=== PATIENT | male | born 1975 | race Caucasian/White ===

== ENCOUNTER 2020-12-02 20:28 | Emergency (ER) | payer OTHER, SELFPAY ==
[2020-12-02 20:47] VITALS: BP 157/90; PULSE 92; RESP 17; TEMP 36.8; O2SAT 100; BMI 45.6
--- NOTE | 2020-12-02 20:52 | HMH.EDGENADL ---
ED Disposition Clinical Impression: Chest pain Qualifiers: Chest pain type: unspecified Qualified Code(s): R07.9 - Chest pain, unspecified Disposition: Home, Self-Care Condition on Discharge: Fair Instructions: DI for Acute Pain -- Adult Additional Instructions: Return if recurrent chest pain. Referrals: PCP,No [Primary Care Provider] - - Critical Care Critical Care Time: No Attestation: On , the high probability of a clinically significant, sudden or life threatening deterioration of the following system(s) required my full and direct attention, intervention and personal management. The time I documented below is in addition to time spent performing reported procedures but includes the following listed in this critical care notation. Medical Decision Making - Medical Records Medical records reviewed: Yes: I reviewed the patient's medical records. - Henri Inquiry Pt receiving controlled substance: No Vital Signs: 12/02/20 20:47 Temperature 98.3 F Temperature Source Oral Pulse Rate [Right Brachial] 92 H Respiratory Rate 17 Blood Pressure [Right Arm] 157/90 H Blood Pressure Mean [Right Arm] 112 Blood Pressure Source [Right Arm] Automatic Cuff Blood Pressure Position [Right Arm] Sitting 02 Sat by Pulse Oximetry 100 Oxygen Delivery Method Room Air - Lab Data Lab Results 12/02/20 20:53: WBC 9.4, RBC 5.34, Hgb 14.0 L, Hct 43.0, MCV 80.6, MCH 26.1 L, MCHC 32.5, RDW 14.5, Plt Count 298, MPV 8.4, Neut % (Auto) 69.7, Lymph % (Auto) 21.1, [place] % (Auto) 7.5, Eos % (Auto) 1.1, Baso % (Auto) 0.6, Neut # (Auto) 6.5, Lymph # (Auto) 2.0, [place] # (Auto) 0.7, Eos # (Auto) 0.1, Baso # (Auto) 0.1 12/02/20 20:53: Sodium 140, Potassium 3.6, Chloride 100, Carbon Dioxide 31 H, Anion Gap 12.6, BUN 18, Creatinine 1.00, Estimated Creat Clear 90, Estimated GFR 81, Est GFR ( Amer) 98, Glucose 137 H, Calcium 10.0, Total Bilirubin 0.7, AST 26, ALT 26, Alkaline Phosphatase 67, Troponin I < 0.01, Total Protein 8.5 H, Albumin 4.8, Globulin 3.7 H, Albumin/Globulin Ratio 1.3, Lipase 94 Result diagrams: 12/02/20 20:53 12/02/20 20:53 Orders (Tests/Meds): ORDERS Category Date Time Status XR chest portable Stat Exams 12/02/20 21:13 Taken Troponin I Q3H Lab 12/03/20 00:15 Ordered Troponin I Q3H Lab 12/03/20 03:15 Ordered Medical Decision Narrative: Hemodynamically stable on arrival. EKG demonstrates no acute ischemia process. There is a right bundle branch block. Cardiac enzyme test will be obtained as atypical ACS on the differential. Patient's pain is rather atypical. For set of enzymes negative. Patient's pain has been constant for 12 hours with low suspicion. Patient will follow up in the outpatient setting in regards to ACS. Other test obtained including blood counts and electrolytes all within normal limits. X-ray demonstrates no acute cardiopulmonary abnormality. At this time, I do believe patient to be swab for Covid discharged in stable condition with instructions to isolate as best he can until results are available. He does need to follow-up with PCP as he does need to establish primary care. Patient agrees. He states he does have PCPs he can call to try to establish primary care. He will return if any recurrent chest pain, shortness of breath, nausea/vomiting, other new concerning symptoms. Assessment: Chest discomfort Obesity Disposition: Home with follow-up General Adult HPI - General Stated complaint: shortness of breath periodic numbness Time Seen by Provider: 12/02/20 21:39 - History of Present Illness HPI narrative: 45-year-old male history of obesity presenting with chest pain for the past 5 weeks. Patient states he had intermittent sharp pains that are nonexertional, nonpositional, nonpleuritic. Today he has had pain constantly for the past 12 hours. No radiation of pain. No nausea/vomiting. He states he does not have a primary care doctor and would like to establish care.
--- NOTE | 2020-12-02 21:13 | XR_ITS ---
PROCEDURE: XR CHEST PORTABLE CLINICAL HISTORY: chest pain COMPARISON: No exams were available for comparison FINDINGS: Cardiomegaly without CHF The lungs are clear without infiltrates, suspicious nodules, or pleural effusions. No acute bony abnormalities. IMPRESSION: Cardiomegaly otherwise negative Dictated by: Raman Gil MD 12/03/2020 05:44 Raman Gil MD in [place] 12/03/2020 05:44
[2020-12-02 21:19] LABS: Basophils # 0.1 K/mm3 (0-0.2); Basophils % 0.6 % (0.1-2.0); Eosinophils # 0.1 K/mm3 (0.0-0.4); Eosinophils % 1.1 % (0.1-12.0); Lymphocytes % 21.1 % (10-50); Mean Corpuscular HGB Conc 32.5 g/dL (31.8-35.4); Mean Corpuscular Hemoglobin 26.1 pg (27.0-31.2); Mean Corpuscular Volume 80.6 fl (80-94); Mean Platelet Volume 8.4 fl (7.4-10.4); Monocytes # 0.7 K/mm3 (0.1-1.0); Monocytes % 7.5 % (1.7-9.3); Neutrophils # 6.5 K/mm3 (1.8-7.8); Neutrophils % 69.7 % (37.0-80.0); Platelet Count 298 K/mm3 (142-424); Red Blood Count 5.34 M/mm3 (4.60-6.20); Red Cell Distribution Width 14.5 % (11.5-17.5); White Blood Count 9.4 K/mm3 (4.8-10.8)
[2020-12-02 21:21] LABS: Chloride 100 mmol/L (98-107); Potassium 3.6 mmoL/L (3.5-5.1); Sodium 140 mmol/L (136-145)
[2020-12-02 21:24] LABS: Alanine Aminotransferase 26 U/L (12-78); Albumin Level 4.8 g/dl (3.5-5.0); Albumin/Globulin Ratio 1.3 (1.1-1.8); Alkaline Phosphatase 67 U/L (38-126); Anion Gap 12.6 mEq/L (5-15); Aspartate Amino Transferase 26 U/L (17-59); Bilirubin,Total 0.7 mg/dl (0.2-1.3); Blood Urea Nitrogen 18 mg/dl (9-20); Carbon Dioxide 31 mmol/L (22.0-30.0); Creatinine Clearance Estimated 90 mL/min (50-200); Estimated Glomerular Filt Rate 81 ml/min (>60); GFR (African American) 98 ML/MIN (>60); Globulin 3.7 g/dL (1.3-3.2); Glucose 137 mg/dl (74-100); Lipase 94 U/L (23-300); Total Protein,Serum 8.5 g/dl (6.3-8.2)
[2020-12-02 21:36] LABS: Troponin I < 0.01 ng/ml (0.00-0.034)
--- NOTE | 2020-12-02 22:38 | ECG_ITS ---
APPROVED REPORT Exam: Resting ECG HR:65 bpm ECG Measurements Heart Rate 65 AXES MS 148 P 53 QRSd 110 QRS -20 QT 388 T 24 QTc 403 Conclusion Normal sinus rhythm with sinus arrhythmia Incomplete right bundle branch block Minimal voltage criteria for LVH, may be normal variant Borderline ECG Electronically signed by : Boni De La O, 12/03/2020 18:46:10
[2020-12-02 22:45] VITALS: BP 123/74; PULSE 73; RESP 17; TEMP 36.8; O2SAT 98
== END 2020-12-02 22:46 | disposition home or self-care (01) ==
PROVIDERS: Emergency Provider Emergency Medicine
DX: Z20.822 Contact with and (suspected) exposure to COVID-19 (principal); R07.9 Chest pain, unspecified; R51.9 Headache, unspecified; E66.01 Morbid (severe) obesity due to excess calories; Z68.42 Body mass index [BMI] 45.0-49.9, adult
CPT/HCPCS: 71045; 80053; 83690; 84484; 85025; 93005; 99282; U0003

== ENCOUNTER → 2021-01-31 14:03 | Outpatient (CLI) | payer OTHER, SELFPAY ==
--- NOTE | 2021-01-31 14:07 | XR_ITS ---
PROCEDURE: XR SHOULDER LT MIN 2V CLINICAL INDICATION: left shoulder pain COMPARISON: No exams were available for comparison FINDINGS: No fracture or dislocation. No lytic or blastic change. There is normal mineralization. No periarticular calcifications. The joint spaces are well-preserved. No significant degenerative/arthritic changes. No erosive changes evident. Other findings:No significant soft tissue abnormality. Visualized left hemithorax is unremarkable. IMPRESSION: No acute findings. Dictated by: Sarah Carrillo 01/31/2021 16:16 Sarah Carrillo in [place] 01/31/2021 16:16
--- NOTE | 2021-01-31 14:07 | XR_ITS ---
PROCEDURE: XR FOOT LT MIN 3V CLINICAL INDICATION: left foot pain COMPARISON: No exams were available for comparison FINDINGS: No fracture or dislocation. No lytic or blastic change. There is normal mineralization. Calcaneal spur is noted. Achilles tendon enthesopathy. The joint spaces are well-preserved. No significant degenerative/arthritic changes. No erosive changes evident. Other findings:None. IMPRESSION: No acute findings. Dictated by: Sarah Carrillo 01/31/2021 16:17 Sarah Carrillo in [place] 01/31/2021 16:17
--- NOTE | 2021-01-31 14:07 | XR_ITS ---
PROCEDURE: XR STERNUM MIN 2V CLINICAL INDICATION: knot on sternum COMPARISON: No exams were available for comparison FINDINGS: The visualized sternum is unremarkable. Bone density is within normal limits. No focal lytic or sclerotic lesions within the limitations of the study. The manubrium sternum appears unremarkable. No significant soft tissue abnormality. IMPRESSION: No acute abnormality. If clinically mass is suspected, CT of the chest without and with contrast should be considered for further evaluation. Dictated by: Sarah Carrillo 01/31/2021 16:19 Sarah Carrillo in [place] 01/31/2021 16:19
[2021-01-31 15:18] LABS: Basophils # 0.1 K/mm3 (0-0.2); Basophils % 0.6 % (0.1-2.0); Chloride 104 mmol/L (98-107); Eosinophils # 0.1 K/mm3 (0.0-0.4); Eosinophils % 0.5 % (0.1-12.0); Hematocrit 43.5 % (42.0-52.0); Lymphocytes # 1.6 K/mm3 (0.7-4.5); Lymphocytes % 17.4 % (10-50); Mean Corpuscular HGB Conc 32.2 g/dL (31.8-35.4); Mean Corpuscular Hemoglobin 26.2 pg (27.0-31.2); Mean Corpuscular Volume 81.4 fl (80-94); Mean Platelet Volume 8.3 fl (7.4-10.4); Monocytes # 0.5 K/mm3 (0.1-1.0); Monocytes % 5.6 % (1.7-9.3); Neutrophils # 6.7 K/mm3 (1.8-7.8); Neutrophils % 75.8 % (37.0-80.0); Platelet Count 292 K/mm3 (142-424); Potassium 4.7 mmoL/L (3.5-5.1); Red Blood Count 5.34 M/mm3 (4.60-6.20); Red Cell Distribution Width 14.2 % (11.5-17.5); Sodium 141 mmol/L (136-145); White Blood Count 8.9 K/mm3 (4.8-10.8)
[2021-01-31 15:20] LABS: Blood Urea Nitrogen 22 mg/dl (9-20); Estimated Glomerular Filt Rate 81 ml/min (>60); GFR (African American) 98 ML/MIN (>60)
[2021-01-31 15:21] LABS: Alanine Aminotransferase 23 U/L (12-78); Albumin Level 5.1 g/dl (3.5-5.0); Albumin/Globulin Ratio 1.6 (1.1-1.8); Alkaline Phosphatase 78 U/L (38-126); Anion Gap 13.7 mEq/L (5-15); Aspartate Amino Transferase 26 U/L (17-59); Bilirubin,Total 0.6 mg/dl (0.2-1.3); Calcium 10.2 mg/dl (8.4-10.2); Carbon Dioxide 28 mmol/L (22.0-30.0); Cholesterol 253 mg/dl (140-200); Globulin 3.1 g/dL (1.3-3.2); Glucose 84 mg/dl (74-100); Total Protein,Serum 8.2 g/dl (6.3-8.2); Triglycerides 255 mg/dl (30-150); VLDL Cholesterol 51 mg/dL (0-40)
[2021-01-31 15:22] LABS: Chol/HDL Ratio 5.3 (1-3.5); HDL Cholesterol 48 mg/dl (40-60)
[2021-01-31 15:33] LABS: Direct LDL Cholesterol 162.91 mg/dL (100-129)
[2021-01-31 15:37] LABS: Free T4 (Free Thyroxine) 1.42 ng/dl (0.78-2.19)
[2021-01-31 15:38] LABS: 25-OH Vitamin D, Total 19.7 ng/mL (30-100); Erythrocyte Sedimentation Rate 13 mm/hr (0-15)
== END ==
PROVIDERS: PCP Physician Assistant; Visit Provider Physician Assistant
DX: R07.89 Other chest pain (principal); M79.672 Pain in left foot; M25.512 Pain in left shoulder; M25.50 Pain in unspecified joint; Z00.00 Encounter for general adult medical examination without abnormal findings
CPT/HCPCS: 71120; 73030; 73630; 80053; 80061; 82306; 84439; 84443; 85025; 85651

== ENCOUNTER → 2021-03-01 17:30 | Outpatient (CLI) | payer OTHER, SELFPAY | PROVIDERS: PCP Physician Assistant; Visit Provider Physician Assistant | DX: G47.33 Obstructive sleep apnea (adult) (pediatric) (principal) | CPT/HCPCS: 95806 ==

== ENCOUNTER → 2021-03-02 08:07 | Outpatient (CLI) | payer OTHER, SELFPAY ==
--- NOTE | 2021-03-02 08:09 | CA_ITS ---
APPROVED REPORT EXAM: Comprehensive 2D, Doppler, and color-flow Echocardiogram Engraver Block: Angelina Castrejon, RCS, RVS Ht: 5 ft 8 in Wt: 260lbs BSA: 2.28 BP: 136/81 mmHg Indications: CP, recent Hx-pleurisy, ABN EKG, HLD 2D Dimensions Aortic Root 3.31 cm LA Volume 59.20 mL Left Atrium 4.07 cm LA Volume Index 25.90 mL/m2 (M/F) 16-34 LVOT 2.12 cm (M/F) 1.5-2.5 M-Mode Dimensions RVDd 2.74 cm (0.9-2.6) LA Diam 4.16 cm (1.9-4.0) LVDd 5.11 cm (3.5-5.7) Ao Diam 3.55 cm (2.0-3.7) LVDs 3.42 cm (3.5-5.7) IVSd 1.13 cm (0.6-1.1) PWd 1.09 cm (0.6-1.1) EF (Teich) 61.30% EPSs 0.56 cm FS 33.10% EDV (Teich) 124.40 mL TAPSE 1.84 (<1.7) ESV (Teich) 48.10 mL LV Diastology E Decel Time 197.00 (160-240 msec) E/A Ratio 1.40 MED E' 10.80 (< 7 cm/sec) MED A' 12.90 cm/s E'/MED E' Ratio 8.27 (>14) LAT E' 12.60 (<10 cm/sec) LAT A' 9.80 cm/s E/LAT E' Ratio 7.09 (>14) Aortic Valve LVOT Max 81.00 (70-110 cm/s) LVOT VTI 18.72 cm AO Peak GR. 5.30 mmHg Mitral Valve MV A Velocity 64.00 (40-130 cm/s) E/A Ratio 1.40 MV Decel. Time 197.00 (160-240 ms) Pulmonary Valve PV Peak Velocity 73.00 (50-150 cm/s) Left Ventricle Left atrium is normal size, left ventricle is normal size, there is no concentric left ventricular hypertrophy, visually estimated ejection fraction 55% with no regional wall motion abnormality, diastolic parameters are within normal range. Right Ventricle Right atrium is normal size, right ventricle qualitatively mildly enlarged with normal contractility. Aortic Valve Aortic valve is grossly normal, there is no aortic stenosis or aortic insufficiency. Mitral Valve Mitral valve is structurally normal, there is trace mitral regurgitation. Tricuspid Valve Tricuspid valve is grossly normal, there is trace tricuspid regurgitation. Pulmonic Valve Pulmonic valve is poorly visualized. Great Vessels Aortic root is normal size. Pericardium No significant pericardial effusion noted. Conclusion 1. Normal left ventricular size, preserved left ventricular systolic function, visually estimated ejection fraction 55% with no regional wall motion abnormality, diastolic parameters are within normal range. 2. Mildly enlarged right ventricle with normal contractility. 3. Trace mitral and tricuspid regurgitation. 4. No significant pericardial effusion noted. Electronically signed by : Jakob Daniel, 03/03/2021 14:49:53
--- NOTE | 2021-03-02 11:08 | XR_ITS ---
PROCEDURE: XR FOOT WT BEARING LT 3V CLINICAL INDICATION: pain Pain and swelling COMPARISON: CR XR FOOT LT MIN 3V from 01/31/2021 FINDINGS: No fracture or dislocation. No lytic or blastic change. There is normal mineralization. There are osteoarthritic changes at the talonavicular and navicular cuneiform joint with mild pes planus. Small spur is present at the distal talus anteriorly. Overall not significantly changed. There is a small calcaneal spur as before Other findings:None. IMPRESSION: Mild osteoarthritic changes with pes planus Dictated by: Raman Gil MD 03/02/2021 11:52 Raman Gil MD in [place] 03/02/2021 11:52
== END ==
PROVIDERS: PCP Physician Assistant; Visit Provider Nurse Practitioner Family
DX: R07.9 Chest pain, unspecified (principal); R94.31 Abnormal electrocardiogram [ECG] [EKG]; F14.11 Cocaine abuse, in remission; R00.0 Tachycardia, unspecified; E78.5 Hyperlipidemia, unspecified; K21.9 Gastro-esophageal reflux disease without esophagitis; Z87.891 Personal history of nicotine dependence; M79.672 Pain in left foot
CPT/HCPCS: 73630; 93306

== ENCOUNTER → 2021-03-02 08:37 | Outpatient (CLI) | payer OTHER, SELFPAY ==
--- NOTE | 2021-03-02 08:38 | NM_ITS ---
APPROVED REPORT Exam: Nuclear Stress Test Indication: chest pain Patient Location: Outpatient Stress Tech: Katheryn Eason SC Tech:NGOZI Pagan RT(R)(N) Ht: 5 ft 10 in Wt: 260 lbs HR: 75 bpm BP: 141/78 mmHg BSA: 2.33 m2 BMI: 37.3 History: chest pain78 Procedure: Patient received a 0.4 mg of intravenous Lexiscan, resting heart rate 78 bpm, resting blood pressure 141/78 mmHg, with Lexiscan maximum heart rate achived was 109 bpm which is Less than 85 % of the maximum predicted heart rate and blood pressure was 153/82 mmHg. With Lexiscan, patient denied any complaint of chest pain. Electrocardiogram Resting electrocardiogram showed sinus rhythm right ventricular conduction delay, with Lexiscan there is less than 1.[address] segment depression noted from the baseline EKG. The EKG portion of the Lexiscan is nondiagnostic. Cardiac Stress and Resting SPECT Images: Cardiac Stress and Resting SPECT images were obtained using technetium 99m Myoview 31.5 mCi stress and 9.40 mCi at rest. Gated SPECT for analysis of segmental wall motion and calculation of the ejection fraction also done. Prone images were also obtained. Cardiac stress and resting SPECT images show uniform myocardial activity without segmental perfusion abnormality, computer derived ejection fraction is 50% with no regional wall motion abnormality, right ventricle is normal size and contractility. Conclusion: 1. The EKG portion of the Lexiscan is nondiagnostic. 2. No scintigraphic evidence of reversible ischemia seen, computer derived ejection fraction is 50% with no regional wall motion abnormality, right ventricle is normal size and contractility. 3. Normal Lexiscan Myoview study. Electronically signed by : Jakob Daniel, 03/03/2021 14:20:11
--- NOTE | 2021-03-02 13:49 | CA_ITS ---
APPROVED REPORT Exam: Pharmacologic Technologist: Katheryn Eason, Ht: 5 ft 8 in Wt: 260 lbs BSA: 2.28 m2 HR: 78 bpm BP: 141/78 mmHg Medical History Medications: Toprol,,,,, MeLOXICAM,,,,, AtorvaASTATIN,,,,, Asapirin,,,,, Stress Test Details Test: LEXISCAN HR Resting HR: 82 bpm Max Heart Rate (APMHR): 175.971636 bpm Max HR Achieved: 109 bpm Target HR (85% APMHR): 148.995145 bpm % of APMHR: 62.29 Recovery HR: 91 bpm BP Resting BP: 141/78 mmHg Max BP: 153/82 mmHg Recovery BP: 135.0/83.0 mmHg ECG Resting ECG: NSR, RBBB, LAD Medications Administered Nitroglycerine ( mg at ) Clinical Exercise duration: 04:01 min Highest Stage Achieved: Exercise capacity: 1.0 METs Stress ECG Conclusion Symptoms: Mild SOA, mild stomach discomfort. No CP. Arrhythmias/Ectopy: Some variation in R wave amplitude. ST-T Changes: No significant changes. Conclusion: Unremarkable Lexiscan stress. Myoview images reported separately. Test Summary REST . . . . . . . Resting REST 05:01 . . 82 . 141/ 78 . . Stage 1 . . . . . . . Myoview Injected Stage 1 01:00 . . 105 . . . . Stage 2 01:00 . . 100 . 153/ 82 . . Stage 3 01:00 . . 94 . 145/ 73 . . Stage 4 01:00 . . 95 . 135/ 80 . . Stage 4 01:01 . . 95 . 135/ 80 . Stop exercise at 04:01 RECOVERY 01:00 . . 88 . . . . RECOVERY 02:00 . . 93 . 129/ 79 . . RECOVERY 03:00 . . 91 . 135/ 83 . . RECOVERY 03:19 . . 93 . 135/ 83 . . Electronically signed by : Jakob Daniel, 03/03/2021 14:17:02
== END ==
PROVIDERS: PCP Physician Assistant; Visit Provider Nurse Practitioner Family
DX: R07.9 Chest pain, unspecified (principal); R00.0 Tachycardia, unspecified; R94.31 Abnormal electrocardiogram [ECG] [EKG]; F14.11 Cocaine abuse, in remission; E78.5 Hyperlipidemia, unspecified; K21.9 Gastro-esophageal reflux disease without esophagitis; Z87.891 Personal history of nicotine dependence
CPT/HCPCS: 78452; 93017; A9502; J2785

== ENCOUNTER → 2021-03-07 11:22 | Outpatient (CLI) | payer OTHER, SELFPAY ==
[2021-03-08 12:43] LABS: Anti-Centromere B Antibodies <0.2 AI (0.0-0.9); Anti-Jo-1 <0.2 AI (0.0-0.9); Anti-Smith Antibody <0.2 AI (0.0-0.9); Antichromatin Antibodies <0.2 AI (0.0-0.9); Antiscleroderma-70 Antibodies <0.2 AI (0.0-0.9); RNP Antibodies <0.2 AI (0.0-0.9); Sjogren's Anti-SS-A <0.2 AI (0.0-0.9); Sjogren's Anti-SS-B <0.2 AI (0.0-0.9)
[2021-03-10 12:45] LABS: Anti-DNA (DS) Ab Qn 1 IU/mL (0-9); RA Latex Turbid. <10.0 IU/mL (0.0-13.9)
== END ==
PROVIDERS: Visit Provider Physician Assistant
DX: M25.50 Pain in unspecified joint (principal); M76.72 Peroneal tendinitis, left leg; M79.672 Pain in left foot; M79.671 Pain in right foot
CPT/HCPCS: 36415; 86225; 86235; 86431

== ENCOUNTER → 2021-03-14 10:26 | Outpatient (CLI) | payer OTHER, SELFPAY | PROVIDERS: PCP Physician Assistant; Visit Provider Nurse Practitioner Family | DX: I49.9 Cardiac arrhythmia, unspecified (principal) | CPT/HCPCS: 93270 ==

== ENCOUNTER → 2021-04-18 13:23 | Outpatient (CLI) | payer OTHER, SELFPAY ==
--- NOTE | 2021-04-18 13:23 | MR_ITS ---
PROCEDURE INFORMATION: Exam: MR Left Upper Extremity Joint Without Contrast; Shoulder Exam date and time: 04/18/2021 1:23 PM Age: 45 years old Clinical indication: Pain; Shoulder; Left; Additional info: Left shoulder pain. Left shoulder pain. Pain radiates into chest. No injury or trauma. No prior. TECHNIQUE: Imaging protocol: MR of the Left upper extremity without contrast. Exam focused on the shoulder. COMPARISON: CR XR SHOULDER LT MIN 2V 01/31/2021 2:15 PM FINDINGS: Bones and cartilage: Flattening of the posterior aspect of the humeral head with mild marrow edema, suggestive of post-traumatic change or Hill-Sachs lesion. Acromioclavicular arthropathy is identified, with effacement of the underlying tissue planes. No dislocation of the glenohumeral joint. Joint spaces: No significant glenohumeral joint effusion. Glenoid labrum: A tear is visualized of the superior aspect of the labrum. A tear is also noted of the posterior aspect of the labrum, with suggested mild periosteal sleeve avulsion or POLPSA. Blunting of the anterior aspect of the labrum is visualized. Supraspinatus tendon: Tendinopathy of the supraspinatus tendon. There is increased signal intensity of the undersurface of this tendon, consistent with partial tear. Infraspinatus tendon: Tendinosis of the infraspinatus tendon, with partial tear distally. Subscapularis tendon: No evidence of tear. Teres minor tendon: No evidence of tear. Tendon of biceps brachii: No evidence of tear. Glenohumeral ligaments: No evidence of tear of the inferior glenohumeral ligament. Muscles: No visualized acute abnormality. Soft tissues: No significant soft tissue swelling. IMPRESSION: 1. Tendinosis of the infraspinatus tendon, with partial tear distally. 2. Tendinopathy of the supraspinatus tendon. There is increased signal intensity of the undersurface of this tendon, consistent with partial tear. 3. A tear is visualized of the superior aspect of the labrum. A tear is also noted of the posterior aspect of the labrum, with suggested mild periosteal sleeve avulsion or POLPSA. 4. Flattening of the posterior aspect of the humeral head with mild marrow edema, suggestive of post-traumatic change or Hill-Sachs lesion. 5. Acromioclavicular arthropathy is identified, with effacement of the underlying tissue planes. 6. Additional findings described above.
== END ==
PROVIDERS: PCP Physician Assistant; Visit Provider Physician Assistant
DX: M25.512 Pain in left shoulder (principal)
CPT/HCPCS: 73221

== ENCOUNTER → 2021-05-02 10:17 | Outpatient (CLI) | payer OTHER, SELFPAY ==
--- NOTE | 2021-05-02 10:17 | MR_ITS ---
PROCEDURE INFORMATION: Exam: MR Left Lower Extremity Joint Without and With Contrast; Ankle Exam date and time: 05/02/2021 10:17 AM Age: 45 years old Clinical indication: Patient HX: Left lateral ankle pain, no swelling, no injury TECHNIQUE: Imaging protocol: MR of the Left lower extremity without and with contrast. Exam focused on the ankle. Contrast material: PROHANCE; Contrast volume: 24 ml; Contrast route: IV; COMPARISON: 1. CR XR FOOT WT BEARING LT 3V 03/02/2021 11:09 AM 2. CR XR FOOT LT MIN 3V 01/31/2021 2:15 PM FINDINGS: Bones and cartilage: Moderate bone marrow edema and enhancement is present on both sides of the calcaneocuboid joint. The appearance is most suggestive of osseous contusions; however, there is no provided history of trauma. In the absence of trauma, bone marrow edema can be present in the setting of osseous stress and degenerative change. There is no significant degenerative change evident involving the calcaneocuboid joint. The median eminence of the navicular bone is enlarged. This is consistent with a type III accessory navicular, which has been associated with impingement symptoms. There are small dorsal and plantar calcaneal enthesophytes. Mild osteoarthritis involves the talonavicular and navicular-intermediate cuneiform joints where there are small dorsal enthesophytes. An os trigonum accessory bone is present along the dorsal aspect of the talus. The ossicle has a normal appearance. There is no evidence of posterior impingement. The longitudinal arch of the foot is flattened. There is no acute fracture or dislocation. No aggressive bone lesions are present. Joint spaces: Mild effusions involve the ankle and subtalar joint. LIGAMENTS: Distal tibiofibular syndesmosis: Unremarkable. No tear. Anterior talofibular ligament: Unremarkable. No tear. Posterior talofibular ligament: Unremarkable. No tear. Calcaneofibular ligament: Unremarkable. No tear. Deltoid ligament complex: Unremarkable. No tear. TENDONS: Flexor tendons of foot: Mild tenosynovitis involves the flexor digitorum longus tendon. No tear. Fluid surrounding the flexor hallucis tendon has likely decompressed from the ankle joint. Tibialis posterior tendon: Mild tenosynovitis involves the tibialis posterior tendon. No tear. Peroneal tendons: Mild tenosynovitis involves the peroneal tendon sheath. No tear. Extensor tendons of foot: A mild amount of fluid is present in the extensor digitorum longus tendon sheath. Tibialis anterior tendon: Unremarkable. Achilles tendon: Unremarkable as visualized. Tarsal canal (Sinus tarsi): The sinus tarsi region is narrowed secondary to pes planus. Within the limits of this narrowing, there are preserved foci of normal fat and no evidence of ligament tear. Tarsal tunnel: Unremarkable. Muscles: Unremarkable. Soft tissues: A trace amount of fluid is present in the retrocalcaneal bursa. Mild edema involves the subcutaneous fat of the medial ankle. Plantar fascia: Mild thickening of the proximal plantar fascia central band has minimal surrounding soft tissue edema, suggesting chronic mild plantar fasciitis (fasciopathy), series 6/images 15-16. IMPRESSION: 1. Bone marrow edema and enhancement surrounding the calcaneocuboid joint. In the absence of trauma and absence of significant degenerative change, stress reaction would most likely produce this appearance. 2. Mild osteoarthritis involves the talonavicular and navicular-intermediate cuneiform joints where there are small dorsal enthesophytes. 3. Pes planus. 4. Mild tenosynovitis of the peroneal, tibialis posterior, and flexor digitorum longus, and extensor di
== END ==
PROVIDERS: PCP Physician Assistant; Visit Provider Podiatrist
DX: M79.672 Pain in left foot (principal)
CPT/HCPCS: 73723; A9576

== ENCOUNTER 2021-06-21 08:00 | Emergency (ER) | payer OTHER, SELFPAY ==
[2021-06-21 08:01] VITALS: BP 140/88; PULSE 82; RESP 18; TEMP 37.1; O2SAT 98; BMI 35.9
--- NOTE | 2021-06-21 08:12 | ECG_ITS ---
APPROVED REPORT Exam: Resting ECG HR:62 bpm ECG Measurements Heart Rate 62 AXES MS 148 P 41 QRSd 102 QRS -42 QT 386 T 36 QTc 391 Conclusion Normal sinus rhythm Left axis deviation Incomplete right bundle branch block Nonspecific T wave abnormality Abnormal ECG Electronically signed by : Boni De La O MD 06/22/2021 11:45:43
[2021-06-21 08:20] VITALS: BP 138/79; PULSE 74; RESP 20; O2SAT 96
--- NOTE | 2021-06-21 08:23 | HMH.EDGENADL ---
ED Disposition Clinical Impression: COVID-19 virus infection Disposition: Home, Self-Care Condition on Discharge: Good Instructions: DI for COVID-19 (Suspected or Confirmed ) Additional Instructions: Off work for 10 days, quarantine yourself. Rest, plenty of fluids, Tylenol or ibuprofen for pains or fever. Outpatient monoclonal antibody therapy has been ordered and you will receive a call from [facility] nursing staff to schedule the treatment. Return to the emergency department if short of breath, severe weakness, or intractable vomiting. Referrals: Nohelia Alex PA [Primary Care Provider] - Forms: Work/School Release - Critical Care Critical Care Time: No Attestation: On 06/21/21, the high probability of a clinically significant, sudden or life threatening deterioration of the following system(s) required my full and direct attention, intervention and personal management. The time I documented below is in addition to time spent performing reported procedures but includes the following listed in this critical care notation. Medical Decision Making - Medical Records Medical records reviewed: Yes: I reviewed the patient's medical records. MR Comment: Reviewed recent Myoview stress test, echocardiogram on 03/03/2021, both negative. Also recent cardiac event monitor that showed sinus rhythm with PVCs. - Henri Inquiry Pt receiving controlled substance: No Vital Signs: 06/21/21 08:01 06/21/21 08:20 Temperature 98.8 F Temperature Source Oral Pulse Rate 74 Pulse Rate [Left Radial] 82 Respiratory Rate 18 20 Blood Pressure 138/79 Blood Pressure [Right Arm] 140/88 Blood Pressure Mean [Right Arm] 105 Blood Pressure Source Automatic Cuff Blood Pressure Source [Right Arm] Automatic Cuff Blood Pressure Position Sitting Blood Pressure Position [Right Arm] Sitting 02 Sat by Pulse Oximetry 98 96 Oxygen Delivery Method Room Air Room Air - Lab Data Lab Results 06/21/21 08:11: WBC 7.6, RBC 5.65, Hgb 14.6, Hct 45.1, MCV 79.8 L, MCH 25.9 L, MCHC 32.5, RDW 14.1, Plt Count 209, MPV 8.0, Neut % (Auto) 79.8, Lymph % (Auto) 10.7, [place] % (Auto) 8.2, Eos % (Auto) 0.2, Baso % (Auto) 1.2, Neut # (Auto) 6.1, Lymph # (Auto) 0.8, [place] # (Auto) 0.6, Eos # (Auto) 0.0, Baso # (Auto) 0.1 06/21/21 08:11: Sodium 139, Potassium 4.1, Chloride 100, Carbon Dioxide 28, Anion Gap 15.1 H, BUN 19, Creatinine 1.20, Estimated Creat Clear 125, Estimated GFR 65, Est GFR ( Amer) 79, Glucose 168 H, Calcium 8.7, Troponin I < 0.01 06/21/21 08:40: SARS-CoV-2 (PCR) Detected A, Influenza A Untype (PCR) Not detected, Influenza Type B (PCR) Not detected Result diagrams: 06/21/21 08:11 06/21/21 08:11 Orders (Tests/Meds): ED MEDICATIONS Discontinued Medications Generic Name Dose Route Start Last Admin Trade Name Freq PRN Reason Stop Dose Admin Sodium Chloride 1,000 ml 06/21/21 08:33 06/21/21 08:44 Sodium Chloride 0.9% 1000ml Bag IV 06/21/21 08:34 1,000 ml BOLUS ONE Administration - Radiology Data #1 Image(s): Chest Image Reviewed: Yes I reviewed the patient's radiology image, Yes I have reviewed radiologist's interpretation PROCEDURE: XR CHEST 2V CLINICAL HISTORY: dizziness COMPARISON: CR XR CHEST PORTABLE from 12/02/2020 FINDINGS: The cardiomediastinal silhouette and pulmonary vascularity are within normal limits. The lungs are clear without infiltrates, suspicious nodules, or pleural effusions. Minimal thoracolumbar curvature convex right IMPRESSION: No acute findings. Dictated by: Raman Gil MD 06/21/2021 09:28 Raman Gil MD in [place] 06/21/2021 09:28 - ECG Data Tracing #1 EKG interpreted by Neo Glaser MD: Rhythm: sinus Rate: 62 [place]: Left Ectopy: none Conduction: Incomplete right bundle branch block ST Segment Changes: none T Wave Changes: Nonspecific Q Waves: none No evidence of acute ischemia or injury Medical Decision
[2021-06-21 08:30] LABS: Chloride 100 mmol/L (98-107); Potassium 4.1 mmoL/L (3.5-5.1); Sodium 139 mmol/L (136-145)
[2021-06-21 08:33] LABS: Anion Gap 15.1 mEq/L (5-15); Blood Urea Nitrogen 19 mg/dl (9-20); Calcium 8.7 mg/dl (8.4-10.2); Carbon Dioxide 28 mmol/L (22.0-30.0); Creatinine Clearance Estimated 125 mL/min (50-200); Estimated Glomerular Filt Rate 65 ml/min (>60); GFR (African American) 79 ML/MIN (>60); Glucose 168 mg/dl (74-100)
--- NOTE | 2021-06-21 08:33 | PC.NURSE ---
Pt to rad.
[2021-06-21 08:34] LABS: Basophils # 0.1 K/mm3 (0-0.2); Basophils % 1.2 % (0.1-2.0); Eosinophils % 0.2 % (0.1-12.0); Hematocrit 45.1 % (42.0-52.0); Hemoglobin 14.6 g/dL (14.1-18.0); Lymphocytes # 0.8 K/mm3 (0.7-4.5); Lymphocytes % 10.7 % (10-50); Mean Corpuscular HGB Conc 32.5 g/dL (31.8-35.4); Mean Corpuscular Hemoglobin 25.9 pg (27.0-31.2); Mean Corpuscular Volume 79.8 fl (80-94); Monocytes # 0.6 K/mm3 (0.1-1.0); Monocytes % 8.2 % (1.7-9.3); Neutrophils # 6.1 K/mm3 (1.8-7.8); Neutrophils % 79.8 % (37.0-80.0); Platelet Count 209 K/mm3 (142-424); Red Blood Count 5.65 M/mm3 (4.60-6.20); Red Cell Distribution Width 14.1 % (11.5-17.5); White Blood Count 7.6 K/mm3 (4.8-10.8)
[2021-06-21 08:46] LABS: Influenza A, PCR Not Detected (NotDetected); Influenza B, PCR Not Detected (NotDetected)
[2021-06-21 08:46] LABS: Troponin I < 0.01 ng/ml (0.00-0.034)
[2021-06-21 09:08] LABS: Coronavirus 19, PCR Detected (NotDetected)
[2021-06-21 09:50] VITALS: BP 130/84; PULSE 81; RESP 18; TEMP 37.1; O2SAT 98
--- NOTE | 2021-06-21 09:50 | PC.NURSE ---
OUT PATIENT COVID INFUSION ORDER FAXED TO PHARMACY
== END 2021-06-21 09:56 | disposition home or self-care (01) ==
PROVIDERS: Emergency Provider Emergency Medicine; PCP Physician Assistant
DX: U07.1 COVID-19 (principal); R42 Dizziness and giddiness; K21.9 Gastro-esophageal reflux disease without esophagitis; E78.5 Hyperlipidemia, unspecified; I10 Essential (primary) hypertension; Z87.891 Personal history of nicotine dependence
CPT/HCPCS: 71046; 80048; 84484; 85025; 93005; 96365; 99283; U0003

== ENCOUNTER → 2021-06-22 10:48 | Outpatient (CLI) | payer OTHER, SELFPAY ==
[2021-06-22] VITALS (8 sets, daily range): BP systolic 108–131; BP diastolic 70–82; PULSE 62–75; RESP 15–18; TEMP 36.4–36.9; O2SAT 94–99
== END ==
PROVIDERS: PCP Physician Assistant; Visit Provider Emergency Medicine
DX: U07.1 COVID-19 (principal)
CPT/HCPCS: 96365

== ENCOUNTER → 2021-07-18 14:42 | Outpatient (CLI) | payer OTHER, SELFPAY ==
--- NOTE | 2021-07-18 14:42 | CT_ITS ---
PROCEDURE: CT ANKLE LT WO CON CLINICAL HISTORY: chronic left ankle pain COMPARISON: MR MR ANKLE LT WO/W CON from 05/02/2021 TECHNIQUE: Axial images obtained with sagittal and coronal reformats. All CT scans at the facility use one or more dose reduction, viz: automated exposure control, ma/kV adjustment per patient size (including targeted exams where dose is matched to indication, i.e. head), or iterative reconstruction technique. FINDINGS: No fracture or dislocation. There are mild osteoarthritic changes of the talonavicular joint. Prominent trabeculation of the generalized bony structures suggesting osteopenia. There is a small amount of fluid posterior to the os trigonum suggesting mild bursitis. Type 3 os navicularis. The ankle mortise is preserved. IMPRESSION: Mild osteoarthritic changes. No acute fracture. Small amount of fluid posterior to the os trigonum suggesting bursitis. Dictated by: Raman Gil MD 07/19/2021 07:50 Raman Gil MD in [facility] 07/19/2021 07:50
== END ==
PROVIDERS: PCP Physician Assistant; Visit Provider Podiatrist
DX: M19.072 Primary osteoarthritis, left ankle and foot (principal); M25.372 Other instability, left ankle
CPT/HCPCS: 73700

== ENCOUNTER → 2021-10-24 07:32 | Outpatient (CLI) | payer OTHER, SELFPAY ==
--- NOTE | 2021-10-24 07:39 | MR_ITS ---
PROCEDURE: MR KNEE LT WO CON CLINICAL INDICATION: Left knee pain, instability, clicking COMPARISON: No exams were available for comparison TECHNIQUE: Routine multiplanar multi echo sequences are performed without gadolinium enhancement. FINDINGS: There has been prior ACL repair. No evidence cruciate ligament tear. The collateral ligaments have an unremarkable appearance. Patellar tendon and quadriceps tendon are unremarkable. There are osteoarthritic changes of the knee. There is thinning of the anterior aspect of the body of the medial meniscus as well as thinning of the anterior horn of the medial meniscus.. Abnormal contour noted involving the medial aspect of the anterior horn of the lateral meniscus suggesting a meniscal tear. There is also abnormal contour involving the lateral aspect of the posterior horn of the medial meniscus with some truncation of the meniscus anteriorly Osteoarthritic changes are present involving all 3 compartments. No large knee joint effusion. There is some mild thinning of the patellar cartilage. IMPRESSION: 1. Status post ACL repair with no evidence of cruciate tear. 2. Osteoarthritic changes 3. Abnormal contour/shape of the anterior aspect of the body of the medial meniscus and the posterior meniscus laterally as well as the medial aspect of the anterior horn of the lateral meniscus all suggesting meniscal tears. Dictated by: Raman Gil MD 10/25/2021 08:49 Raman Gil MD in [facility] 10/25/2021 08:49
== END ==
PROVIDERS: PCP Physician Assistant; Visit Provider Physician Assistant
DX: M25.562 Pain in left knee (principal)
CPT/HCPCS: 73721

== ENCOUNTER → 2021-10-24 09:21 | Outpatient (CLI) | payer OTHER, SELFPAY ==
--- NOTE | 2021-10-24 09:27 | XR_ITS ---
PROCEDURE: XR FOOT WT BEARING LT 3V CLINICAL INDICATION: PAIN COMPARISON: CR XR FOOT LT MIN 3V from 01/31/2021 CR XR FOOT WT BEARING LT 3V from 03/02/2021 FINDINGS: No fracture or dislocation. No lytic or blastic change. There is normal mineralization. There is pes planus. Osteoarthritic changes are present at the talonavicular and navicular cuneiform joint Other findings:None. IMPRESSION: Pes planus with osteoarthritis overall not significantly changed Dictated by: Raman Gil MD 10/24/2021 13:14 Raman Gil MD in [facility] 10/24/2021 13:14
--- NOTE | 2021-10-24 09:27 | XR_ITS ---
PROCEDURE: XR ANKLE WT BEARING LT MIN 3V CLINICAL INDICATION: PAIN COMPARISON: No exams were available for comparison FINDINGS: Bones: No fracture or dislocation. No lytic or blastic change. There is normal mineralization. Joints: The joint spaces are well-preserved. No significant degenerative/arthritic changes. No erosive changes evident. Other findings:None. IMPRESSION: No acute findings. Dictated by: Raman Gil MD 10/24/2021 13:14 Raman Gil MD in [facility] 10/24/2021 13:14
== END ==
PROVIDERS: PCP Physician Assistant; Visit Provider Podiatrist
DX: M25.572 Pain in left ankle and joints of left foot (principal)
CPT/HCPCS: 73610; 73630

== ENCOUNTER → 2021-10-31 09:22 | Outpatient (CLI) | payer OTHER, SELFPAY | PROVIDERS: PCP Physician Assistant; Visit Provider Nurse Practitioner | DX: U07.1 COVID-19 (principal) | CPT/HCPCS: C9803; U0003; U0005 ==

== ENCOUNTER → 2022-02-14 09:03 | Outpatient (CLI) | payer OTHER, SELFPAY ==
--- NOTE | 2022-02-14 09:08 | XR_ITS ---
FINAL REPORT CLINICAL HISTORY: CTS FINDINGS: 3 views of the right wrist were obtained. There is no acute fracture or dislocation. The joint spaces are intact. There is no soft tissue abnormality. IMPRESSION: No acute abnormality. Reviewed, Interpreted and Dictated by Matthew Craig MD Transcribed by Germán Jo Authenticated by Matthew Craig MD on 02/14/2022 11:38:36 AM [facility]
--- NOTE | 2022-02-14 09:08 | XR_ITS ---
FINAL REPORT CLINICAL HISTORY: CTS FINDINGS: 3 views of the left wrist were obtained. There is no acute fracture or dislocation. The joint spaces are intact. There is no soft tissue abnormality. IMPRESSION: No acute abnormality. Reviewed, Interpreted and Dictated by Matthew Craig MD Transcribed by Germán Jo Authenticated by Matthew Craig MD on 02/14/2022 11:38:[address] [facility]
== END ==
PROVIDERS: PCP Physician Assistant; Visit Provider Orthopaedic Surgery
DX: M25.532 Pain in left wrist (principal); M25.531 Pain in right wrist
CPT/HCPCS: 73110

== ENCOUNTER 2022-02-14 10:35 | Outpatient (RCR) | payer OTHER, SELFPAY | END 2022-02-14 11:28 | disposition home or self-care (01) | LOC: OT 10:35 | PROVIDERS: Visit Provider Orthopaedic Surgery | DX: G56.03 Carpal tunnel syndrome, bilateral upper limbs (principal) | CPT/HCPCS: 97763 ==

== ENCOUNTER → 2022-04-10 13:25 | Outpatient (CLI) | payer OTHER, SELFPAY ==
--- NOTE | 2022-04-10 13:25 | US_ITS ---
FINAL REPORT TECHNIQUE: Ultrasound images of the testicles were obtained bilaterally. Color Doppler images were obtained. CLINICAL HISTORY: .lt test pain FINDINGS: The right testicle measures 4.3 x 2.8 x 2.3 cm. The left testicle measures 4.0 x 3.1 x 2.4 cm. Arterial flow is identified bilaterally. No intratesticular masses are identified. There are small hydroceles bilaterally. There is a left varicocele and possible right varicocele identified. IMPRESSION: No evidence of testicular torsion or mass. Left varicocele and possible right varicocele. Reviewed, Interpreted and Dictated by Jose Dao III, MD Transcribed by Anna Marie Lopez Authenticated and [facility]
== END ==
PROVIDERS: PCP Physician Assistant; Visit Provider Physician Assistant
DX: N50.812 Left testicular pain (principal)
CPT/HCPCS: 76870

== ENCOUNTER → 2022-05-01 13:03 | Outpatient (CLI) | payer OTHER, SELFPAY ==
--- NOTE | 2022-05-01 13:10 | MR_ITS ---
FINAL REPORT CLINICAL HISTORY: FOOT AND ANKLE PAIN FINDINGS: Multiplanar MR imaging of the left ankle was performed without contrast. There are mild degenerative changes. The bony structures are intact without evidence of fracture, bone bruise or marrow edema. No osteochondral lesion is identified. The ligaments are intact without evidence of injury. The ATFL is not visualized consistent with tear. There is abnormal morphology of the calcaneofibular ligament, favor partial tear. There is posterior plantar fasciitis without tear. Small joint effusions are seen. The musculature is intact. There is no evidence of soft tissue mass or cyst. IMPRESSION: Tear of the ATFL and partial tear of the calcaneofibular ligament. Posterior plantar fasciitis without tear. Small joint effusions. Reviewed, Interpreted and Dictated by Jose Dao III, MD Transcribed by Regina Garcia Authenticated and . [facility]
--- NOTE | 2022-05-01 13:10 | MR_ITS ---
FINAL REPORT CLINICAL HISTORY: FOOT AND ANKLE PAIN. FINDINGS: Multiplanar MR imaging of the left foot was performed without contrast. There are mild degenerative changes. The bony structures are intact without evidence of fracture, bone bruise or marrow edema. The flexor and extensor tendons are intact. No ligamentous injury is identified. The musculature is intact. The plantar aponeurosis is intact. No soft tissue mass or cyst is identified. IMPRESSION: Mild degenerative changes without acute bony abnormality identified. Reviewed, Interpreted and Dictated by Jose Dao III, MD Transcribed by Regina Garcia Authenticated and [facility]
== END ==
PROVIDERS: PCP Physician Assistant; Visit Provider Podiatrist
DX: M19.072 Primary osteoarthritis, left ankle and foot (principal); M25.372 Other instability, left ankle; M72.2 Plantar fascial fibromatosis; M76.72 Peroneal tendinitis, left leg; Q68.8 Other specified congenital musculoskeletal deformities
CPT/HCPCS: 73718; 73721

== ENCOUNTER → 2022-10-30 14:43 | Outpatient (CLI) | payer OTHER, SELFPAY ==
--- NOTE | 2022-10-30 14:46 | MR_ITS ---
FINAL REPORT CLINICAL HISTORY: CERVICAL PAIN. PAIN WORSE ON LEFT SIDE. NO INJURY OR TRAUMA. FINDINGS: Multiplanar MR imaging of the cervical spine was performed without contrast. On the sagittal T2-weighted images, disc degeneration is seen at multiple levels. There is no evidence of fracture. The vertebral alignment is normal. The cervical spinal cord has an unremarkable appearance without evidence of mass, edema or syrinx. The cervicomedullary junction is normal. C2-3: A disc bulge is present. There is mild left neural foraminal narrowing. C3-4: A disc bulge is present. There is mild left neural foraminal narrowing. C4-5: A disc bulge is present with small uncovertebral osteophytes. There is mild left neural foraminal narrowing. C5-6: A disc bulge is present. There is a left paracentral disc protrusion which indents the thecal sac. There is possible left C6 nerve root impingement. Mild central canal stenosis is seen with an AP diameter of the thecal sac of 8 mm. There is moderate bilateral neural foraminal narrowing. C6-7: A disc bulge is present with small uncovertebral osteophytes. A left foraminal disc protrusion is seen. There is mild right and moderate left neural foraminal narrowing. There is left C7 nerve root impingement. Mild central canal stenosis is seen with an AP diameter of the thecal sac of 9 mm. C7-T1: A disc bulge is present. There is a small central disc protrusion which indents the thecal sac. There is mild left neural foraminal narrowing. IMPRESSION: Multilevel degenerative disc disease and spondylosis as described. Mild central canal stenosis at C5-6 and C6-7. Left paracentral C5-6 disc protrusion with possible left C6 nerve root impingement. Left foraminal C6-7 disc protrusion with left C7 nerve root impingement. Authenticated and [facility]
== END ==
PROVIDERS: PCP Physician Assistant; Visit Provider Orthopaedic Surgery
DX: M54.2 Cervicalgia (principal)
CPT/HCPCS: 72141; 76376

== ENCOUNTER → 2023-03-06 12:06 | Outpatient (CLI) | payer OTHER, SELFPAY ==
--- NOTE | 2023-03-06 12:17 | XR_ITS ---
FINAL REPORT CLINICAL HISTORY: pre-op testing, pain COMPARISON: October 2021 FINDINGS: LEFT ANKLE: Three weight-bearing views of the left ankle were obtained. There is no acute fracture or dislocation. The joint spaces and mortise are intact. There is a small plantar spur. There is no soft tissue abnormality. IMPRESSION: No acute process. Reviewed, Interpreted and Dictated by Matthew Craig MD Transcribed by Germán Jo Authenticated and [facility]
--- NOTE | 2023-03-06 12:17 | XR_ITS ---
FINAL REPORT CLINICAL HISTORY: pre-op testing, cough, nonsmoker. scheduled surgery for his foot COMPARISON: October 2021 FINDINGS: 3 weight-bearing views of the left foot were obtained. There is no acute fracture or dislocation. There is osteophyte formation superior to the talonavicular joint. There is a small plantar spur. The soft tissues are unremarkable. IMPRESSION: No acute process. Reviewed, Interpreted and Dictated by Matthew Craig MD Transcribed by Germán Jo Authenticated and [facility]
--- NOTE | 2023-03-06 12:17 | XR_ITS ---
FINAL REPORT CLINICAL HISTORY: pre-op testing FINDINGS: LEFT CALCANEUS 2 views were obtained. There is no acute fracture. There is osteophyte formation dorsal to the talonavicular joint. There is a small plantar spur. There is no soft tissue abnormality. IMPRESSION: No acute process. Reviewed, Interpreted and Dictated by Matthew Craig MD Transcribed by Germán Jo Authenticated and [facility]
--- NOTE | 2023-03-06 12:17 | XR_ITS ---
FINAL REPORT TECHNIQUE: Chest PA & Lateral CLINICAL HISTORY: pre-op testing, cough, nonsmoker. scheduled surgery for his foot COMPARISON: June 2021 FINDINGS: 2 views of the chest were performed. The heart size is normal. The mediastinum is within normal limits. There is no acute cardiopulmonary process. There are no pleural effusions. There is no pneumothorax. The bony thorax appears intact. IMPRESSION: No acute cardiopulmonary process. Reviewed, Interpreted and Dictated by Matthew Craig MD Transcribed by Germán Jo Authenticated and . [facility]
[2023-03-06 13:07] LABS: Basophils # 0.1 K/mm3 (0-0.2); Basophils % 0.7 % (0.1-2.0); Eosinophils # 0.1 K/mm3 (0.0-0.4); Eosinophils % 1.1 % (0.1-12.0); Hematocrit 44.2 % (42.0-52.0); Hemoglobin 14.3 g/dL (14.1-18.0); Lymphocytes % 25.5 % (10-50); Mean Corpuscular HGB Conc 32.5 g/dL (31.8-35.4); Mean Corpuscular Hemoglobin 26.4 pg (27.0-31.2); Mean Corpuscular Volume 81.4 fl (80-94); Mean Platelet Volume 8.1 fl (7.4-10.4); Monocytes # 0.5 K/mm3 (0.1-1.0); Monocytes % 5.8 % (1.7-9.3); Neutrophils # 5.2 K/mm3 (1.8-7.8); Neutrophils % 66.9 % (37.0-80.0); Platelet Count 271 K/mm3 (142-424); Red Blood Count 5.43 M/mm3 (4.60-6.20); Red Cell Distribution Width 14.2 % (11.5-17.5); White Blood Count 7.8 K/mm3 (4.8-10.8)
[2023-03-06 13:24] LABS: Chloride 96 mmol/L (98-107); Potassium 4.6 mmoL/L (3.5-5.1); Sodium 141 mmol/L (136-145)
[2023-03-06 13:26] LABS: Alanine Aminotransferase 39 U/L (12-78); Aspartate Amino Transferase 31 U/L (17-59); Blood Urea Nitrogen 14 mg/dl (9-20); Estimated Glomerular Filt Rate 80 ml/min (>60); GFR (African American) 97 ML/MIN (>60)
[2023-03-06 13:27] LABS: Albumin Level 4.7 g/dl (3.5-5.0); Albumin/Globulin Ratio 1.6 (1.1-1.8); Alkaline Phosphatase 75 U/L (38-126); Anion Gap 17.6 mEq/L (5-15); Bilirubin,Total 0.7 mg/dl (0.2-1.3); Calcium 9.2 mg/dl (8.4-10.2); Carbon Dioxide 32 mmol/L (22.0-30.0); Globulin 2.9 g/dL (1.3-3.2); Glucose 87 mg/dl (74-100); Total Protein,Serum 7.6 g/dl (6.3-8.2)
[2023-03-15 22:24] LABS: 1,25 Dihydroxy Vitamin D 79 pg/mL (.); 1,25-Dihydroxy, Vitamin D-2 60 pg/mL (.); 1,25-Dihydroxy, Vitamin D-3 19 pg/mL (.)
== END ==
PROVIDERS: PCP Physician Assistant; Visit Provider Podiatrist
DX: Z01.818 Encounter for other preprocedural examination (principal); E67.3 Hypervitaminosis D
CPT/HCPCS: 36415; 71046; 73610; 73630; 73650; 80053; 82652; 85025

== ENCOUNTER → 2023-03-08 09:55 | Outpatient (CLI) | payer OTHER, SELFPAY ==
--- NOTE | 2023-03-08 10:10 | US_ITS ---
FINAL REPORT CLINICAL HISTORY: decreased sensation, pain bilateral lower extremities COMPARISON: None FINDINGS: ANKLE-BRACHIAL PRESSURE INDICES Pressure indices are as follows: RIGHT LOWER EXTREMITY: Ankle-brachial pressure index: 1.3 Comments: Normal LEFT LOWER EXTREMITY: Ankle-brachial pressure index: 1.07 Comments: Normal IMPRESSION: No evidence of significant obstructive peripheral vascular disease of the lower extremities Reviewed, Interpreted and Dictated by Matthew Craig MD Transcribed by Anna Marie Lopez Authenticated and . [facility]
--- NOTE | 2023-03-08 10:35 | ECG_ITS ---
APPROVED REPORT Exam: Resting ECG HR:70 bpm ECG Measurements Heart Rate 70 AXES NC 157 P 50 QRSd 117 QRS -20 QT 373 T 54 QTc 393 Conclusion SINUS RHYTHM INCOMPLETE RIGHT BUNDLE BRANCH BLOCK [90+ ms QRS DURATION, TERMINAL R IN V1/V2, 40+ ms S IN I/aVL/V4/V5/V6] BORDERLINE ECG UNCONFIRMED REPORT Electronically signed by : Boni De La O MD 03/08/2023 21:21:11
== END ==
PROVIDERS: PCP Physician Assistant; Visit Provider Podiatrist
DX: Z01.818 Encounter for other preprocedural examination (principal)
CPT/HCPCS: 93005; 93923

== ENCOUNTER → 2023-03-13 14:28 | Outpatient (CLI) | payer OTHER, SELFPAY ==
--- NOTE | 2023-03-13 14:29 | US_ITS ---
FINAL REPORT TECHNIQUE: Limited sonographic images of the right neck were obtained. CLINICAL HISTORY: cyst on neck rt side COMPARISON: MR cervical spine dated 04/24/2022 FINDINGS: There is a small superficial cyst in the region of the palpable abnormality in the right neck with internal echoes measuring up to 6 mm, this focus previously measured 10 mm on 10/30/2022. IMPRESSION: Nonspecific complex cyst in the superficial right neck subcutaneous tissues, likely represents a small sebaceous cyst. Reviewed, Interpreted and Dictated by Dwain Staley MD Transcribed by Kerri Loco Authenticated and . [facility]
== END ==
PROVIDERS: PCP Physician Assistant; Visit Provider Surgery
DX: M54.2 Cervicalgia (principal); L72.9 Follicular cyst of the skin and subcutaneous tissue, unspecified
CPT/HCPCS: 76536

== ENCOUNTER 2023-03-28 08:55 | Day surgery (SDC) | payer OTHER, SELFPAY ==
[2023-03-26 12:43] VITALS: BMI 40.1
[2023-03-28] VITALS (10 sets, daily range): BP systolic 132–156; BP diastolic 66–96; PULSE 81–90; RESP 12–18; TEMP 36.3–43; O2SAT 91–97
--- NOTE | 2023-03-28 10:43 | EXP.ANES.CKL ---
[facility] Disclaimer: The information contained in this section may have been updated after the patient was seen, as this information can be updated by other users. Medical History Abnormal ECG Encounter for pre-operative cardiovascular clearance Former smoker History of cocaine abuse History of COVID-19 History of gastroesophageal reflux (GERD) Hyperlipidemia Hypertension FELIX (obstructive sleep apnea) Osteoarthritis Sinus bradycardia Sleep apnea Surgical History History of left knee surgery History of repair of right hip joint History of wisdom tooth extraction S/P ACL repair Status post phlebectomy Family History Mother Family history of myocardial infarction Family history of diabetes mellitus type II Social History (Updated 03/28/23 @ 09:29 by Oma Hodgson RN) Smoking Status: Former smoker alcohol intake: former substance use type: former substance user current occupational status: unemployed Travel in the last 8 weeks: None [facility] Anesthesia Checklist Patient Identification Patient Identification: Arm Band and Family Structural Data Admitted From: Home Planned Operative Procedure/s: Left ankle arthroscopy. flat foot reconstruction ankle sabilization. Consent for Planned Operative Procedure(s) Verified: Yes Verified Documents: Surgical Consent NPO Status Verified Time NPO: 00:00 Additional verifications Patient : No Anesthesia Reactions: No Hx Blood Transfusions: No Blood Transfusion Reaction: No Cephalosporin Allergy: No Previous Colonoscopy: No Airway Assessment C-Spine Mobility Assessed: Yes TMJ Mobility Assessed: Yes Dentition: Good Dentition Neurological Assessment Level of Consciousness: Awake, Alert, Appropriate and Follows Commands Hx Seizures: No Numbness or tingling in extremities: No Anesthesia Plan Anesthesia Risk discussed: Yes ASA Class: II Anesthesia Type: General w/block Preoperative Comments Pre-Operative Comments: Metoprolol for tachycardia. Bilateral hand tingling. Left eye pain. Has had back of the neck disc pain, no surgery.
--- NOTE | 2023-03-28 12:00 | XR_ITS ---
FINAL REPORT CLINICAL HISTORY: Lt ankle/foot post-op FINDINGS: Fluoroscopy of the left foot/ankle was obtained. Five spot films were obtained with 1:14s of fluoro time. There are postoperative changes of the midfoot and rear foot. IMPRESSION: Fluoroscopy as above. Reviewed, Interpreted and Dictated by Jose Dao III, MD Transcribed by Kerri Loco Authenticated and [facility]
--- NOTE | 2023-03-28 13:14 | SUR.OPER ---
1303- FAMILY UPDATED BY GERALDINE DYSON PER MD ORDER. LET FAMILY KNOW THE PROCEDURE HAS STARTED.
--- NOTE | 2023-03-28 14:19 | SUR.OPER ---
1418- FAMILY UPDATED PER MD ORDER BY LANDON DYSON. STATED, LET THE FAMILY KNOW THAT ONE SIDE OF THE ANKLE IS COMPLETE BUT WE STILL HAVE THE OTHER SIDE TO GO. EVERYTHING IS GOING WELL.
--- NOTE | 2023-03-28 15:13 | SUR.OPER ---
Family updated at this time per Abby Lockhart RN @ this time
--- NOTE | 2023-03-28 15:15 | XR_ITS ---
FINAL REPORT CLINICAL HISTORY: Post op left ankle, flatfoot recon COMPARISON: 03/06/2023 FINDINGS: LEFT ANKLE Three views of the left ankle were obtained. There are postoperative changes in the midfoot, rear foot, and ankle from calcaneal osteotomy with stable. Cast obscures some of the detail. IMPRESSION: Postoperative changes as above. Reviewed, Interpreted and Dictated by Jose Dao III, MD Transcribed by Anna Marie Lopez Authenticated and [facility]
--- NOTE | 2023-03-28 15:15 | XR_ITS ---
FINAL REPORT CLINICAL HISTORY: Post op flatfoot left COMPARISON: 03/06/2023 FINDINGS: LEFT FOOT: Three views of the left foot were obtained. There are postoperative changes in the midfoot, rear foot, and ankle from calcaneal osteotomy with stable. Cast obscures some of the detail. IMPRESSION: Postop changes as above. Reviewed, Interpreted and Dictated by Jose Dao III, MD Transcribed by Anna Marie Lopez Authenticated and . [facility]
--- NOTE | 2023-03-28 15:54 | P.PNANES_ITS ---
[facility] Anesthesia Record Part I Anesthesia Record I Intake, IV Amount: 2,000 Estimated blood loss (mL): 25 Urine output (mL): 400 Blood Pressure: 156/89 SaO2: 92 Pulse Rate: 90 Respiratory Rate: 12 Temperature: 98.6 F Patient is:: Awake and Stable Stable to PACU at:: 15:53
--- NOTE | 2023-03-28 15:59 | EXP.OP.NOTE ---
Date of procedure: 03/28/23 Pre-op Diagnosis:: Left ankle instability Left peroneus brevis tear Left peroneus longus tenosynovitis Left posterior tibial tendon tear Left pes planus/flatfoot deformity Left gastrocnemius equinus Post-op Diagnosis:: Same + ankle/subtalar joint synovitis Procedure performed:: Left posterior tibial tendon repair (31829) Left peroneus brevus tendon repair (82910), peroneus longus tenosynovectomy (97717) Left modified Brostrum, ankle ligament stabilization (49826) Left flatfoot reconstruction ([id number], [id number]) Left partial excision talus Left ankle/subtalar joint arthroscopy with partial synovectomy Left gastroc recession (76180) Stress imaging (22916) Application of amniotic graft Surgeon:: Norma Bartlett DPM [employer] TECHNICIAN:: Kong Kamara Anesthesia: GETA and regional (L pop nerve block) Estimated blood loss (mL): 50 Clinical Note:: Patient is a 47-year-old male with left ankle pain over 4 years progressively worsening, left ankle instability, bone marrow edema, pes planus. Patient has failed conservative care with no improvement to left ankle symptoms. The patient has tried immobilization, modification of shoe gear, strapping, inserts, ice, elevation, NSAIDs, immobilization and fracture boot, ankle bracing, injections and home stretching/formal physical therapy. The patient understands if he decides to not proceed with surgery there is a chance the pain and tear could worsen. Given the instability he could have the ankle give out which could lead to fracture or fall. He understands that if the partial tear worsens to a rupture surgery becomes more urgent. He also understands that if he does not want to proceed with surgery, he can continue the fracture boot or brace. Discussed just addressing the ankle instability and staging of flatfoot recon versus doing osteotomy/less bone work and if need be in the future staging a triple arthrodesis. My professional recommendation would be surgery since there has been no improvement with conservative care for over several years. After a long discussion with the patient in regards to the conservative versus surgical treatment for the tendon tear/deformity, the patient has elected to proceed with surgery because they have failed conservative treatment and continue to have pain and worsening symptoms affecting daily activities. The patient has been instructed on the planned procedure, all risk versus benefits of the procedure discussed. These include but are not limited to: bleeding, infection, nerve and blood vessel damage, need for further surgery, delay in healing of soft tissue or bone, tendon re-rupture, failure of bones to heal, non-union, mal-union, failure of the implant, prolonged pain and recovery, CRPS/RSD, DVT and anesthetic complications. No guarantees were given. All questions fully answered. The patient verbalized understanding. Medical/cardiac clearance per PCP Nohelia Alex and [facility] cardio. Has DME at home. Discussed nerve block and post op pain with 10 pills [place], Toradol/Tramadol, Motrin, Zofran. Operative findings:: Left ankle instability with increased anterior drawer and talar tilt. Ankle synovitis noted on the arthroscopy. Subtalar joint synovitis also noted. Cartilage intact with no evidence of osteochondral defect of the talus. Peroneus longus tenosynovitis appreciated. Peroneus brevis had a longitudinal tear inferior to the distal fibula. PT tendon had a longitudinal tear with synovitis noted. Gorilla navicular noted with hypertrophy and sclerosis of the medial navicular. No cartilage damage to the navicular cuneiform joint. Flatfoot deformity reduced with Beltran procedure. Operative note:: On this date and time patient was deemed an appropriate surgical candidate. Pre-op regional popliteal and saphenous nerve block performed by anesthesia. With informed consent signed, the patient was taken to the operating theater. The patient was positioned supine. General
--- NOTE | 2023-03-28 16:32 | SUR.PHASEII ---
Dr. Conner at bedside speaking with patient and family.
[2023-03-28 16:33] LABS: Microscopic,Cath URINE MICROSCOPIC (MICROSCOPIC)
[2023-03-28 18:41] LABS: Appearance,Urine/Cath CLEAR (Clear); Bilirubin,Cath Negative (Negative); Blood, Urine/Cath Negative (Negative); Color,Urine/Cath YELLOW (Yellow); Glucose,Urine/Cath (UA) Negative (Negative); Ketones,Urine/Cath Negative (Negative); Leukocyte Esterase,Cath Negative (Negative); Nitrate,Cath Negative (Negative); PH,Urine/Cath 5.5 (5.0-8.5); Protein,Urine/Cath TRACE (Negative); Specific Gravity, Urine/Cath >= 1.030 (1.005-1.030); Urobilinogen,Cath 0.2 EU/dl (0.2)
[2023-03-28 20:56] LABS: RBC,Urine/Cath Occasional # /hpf (0-3)
[2023-03-28 20:57] LABS: Amorphous Sediment,Ur/Cath 4+ /lpf; Bacteria,Urine/Cath 1+ /lpf
[2023-03-28 20:58] LABS: Uric Acid Crystals,Ur/Cath 1+ /lpf
--- NOTE | 2023-03-29 07:25 | P.PNANES_ITS ---
[facility] Anesthesia Record Part II Anesthesia Record Part II Discharge Time: 16:23 Destination: Surgical Day Care (OP Surgery) PACU nurse assessment reviewed?: Yes Patient Condition:: Good Anesthesia Complications:: None Swallowing reflex intact?: Yes Cyanosis?: No Blood Pressure: 132/85 Pulse Rate: 85 Temperature: 97.4 F Mental Status: Alert & Oriented Pain level:: 0 Nausea and/or vomitting:: None Intake, IV Amount: 0
[2023-03-29 07:26] VITALS: BP 132/85; PULSE 85; TEMP 36.3
== END 2023-03-28 17:15 | disposition home or self-care (01) ==
PROVIDERS: PCP Physician Assistant; Visit Provider Podiatrist
PROC: (CPT 27696; principal; 2023-03-28 10:30)
DX: M21.42 Flat foot [pes planus] (acquired), left foot (principal); M25.372 Other instability, left ankle; M19.072 Primary osteoarthritis, left ankle and foot; M79.672 Pain in left foot; M76.72 Peroneal tendinitis, left leg
CPT/HCPCS: 27696; 27659; 28086; 28300; 28238; 27687; 73610; 73620; 73630; 76000; 81001; 96374; C1713; C1734; C9399; J2405; Q4211

== ENCOUNTER → 2023-05-03 09:34 | Outpatient (CLI) | payer OTHER, SELFPAY ==
--- NOTE | 2023-05-03 09:37 | XR_ITS ---
FINAL REPORT CLINICAL HISTORY: post left foot surgery COMPARISON: 03/28/2023 FINDINGS: LEFT FOOT SERIES Three views of the left foot were obtained. There is no acute fracture or dislocation. There are postoperative changes from a calcaneal osteotomy with a staple present. There are postoperative changes in the lateral malleolus and medial navicular. The bony alignment is stable. There is mild degenerative change. There is no soft tissue abnormality. IMPRESSION: Postoperative changes as stated above. Mild degenerative change. Reviewed, Interpreted and Dictated by Jose Dao III, MD Transcribed by Osiris Claros Authenticated and [facility]
== END ==
PROVIDERS: PCP Physician Assistant; Visit Provider Podiatrist
DX: Z98.890 Other specified postprocedural states; M79.672 Pain in left foot
CPT/HCPCS: 73630

== ENCOUNTER → 2023-05-17 10:25 | Outpatient (CLI) | payer OTHER, SELFPAY ==
--- NOTE | 2023-05-17 10:31 | XR_ITS ---
FINAL REPORT CLINICAL HISTORY: post-op left foot FINDINGS: LEFT FOOT SERIES Three views of the left foot were obtained. There is no acute fracture or dislocation. Soft tissue swelling is present. There are postoperative changes seen at the ankle, rear foot, and midfoot. A distal calcaneal osteotomy is noted. IMPRESSION: No acute bony abnormality. Postoperative changes as stated above. Reviewed, Interpreted and Dictated by Jose Dao III, MD Transcribed by Osiris Claros Authenticated and [facility]
== END ==
PROVIDERS: PCP Physician Assistant; Visit Provider Podiatrist
DX: M79.672 Pain in left foot (principal); G89.18 Other acute postprocedural pain; Z98.890 Other specified postprocedural states
CPT/HCPCS: 73630

== ENCOUNTER → 2023-06-14 08:22 | Outpatient (CLI) | payer OTHER, SELFPAY ==
--- NOTE | 2023-06-14 08:27 | XR_ITS ---
FINAL REPORT CLINICAL HISTORY: Foot Pain surgery on march 27 COMPARISON: 05/17/2023 FINDINGS: LEFT FOOT: Three views of the left foot were obtained. The patient is postop as noted on the prior films, with postsurgical changes in the navicular, lateral malleolus, and calcaneus. There is a staple in the distal calcaneus compatible with an osteotomy. The alignment is stable and unchanged since the prior exam. There is mild degenerative change present. Slight soft tissue swelling is noted.. IMPRESSION: No acute bony abnormality. Postoperative changes as described with slight soft tissue swelling, stable. Reviewed, Interpreted and Dictated by Jose Dao III, MD Transcribed by Beti Tapia Authenticated and [facility]
== END ==
PROVIDERS: PCP Physician Assistant; Visit Provider Podiatrist
DX: M79.672 Pain in left foot (principal)
CPT/HCPCS: 73630

== ENCOUNTER → 2023-09-10 11:20 | Outpatient (CLI) | payer OTHER, SELFPAY ==
--- NOTE | 2023-09-10 11:23 | XR_ITS ---
FINAL REPORT CLINICAL HISTORY: postop left foot surgery FINDINGS: AP, oblique and lateral views of the left foot were obtained. There are postoperative changes of the hindfoot and navicular. Multijoint degenerative disease is seen, most pronounced in the midfoot. There is no acute fracture or dislocation. There is diffuse soft tissue edema. IMPRESSION: Degenerative and postoperative changes with diffuse soft tissue edema. No acute osseous abnormality. Reviewed, Interpreted and Dictated by Deb Robb MD Transcribed by Regina Garcia Authenticated and [facility]
== END ==
PROVIDERS: PCP Physician Assistant; Visit Provider Podiatrist
DX: M79.672 Pain in left foot (principal); G89.18 Other acute postprocedural pain; Z98.890 Other specified postprocedural states
CPT/HCPCS: 73630

== ENCOUNTER → 2023-09-12 12:44 | Outpatient (CLI) | payer OTHER, SELFPAY ==
--- NOTE | 2023-09-12 12:45 | CT_ITS ---
FINAL REPORT TECHNIQUE: Thin section axial images were obtained through the left lower extremity without contrast. Reconstruction images were obtained from the axial data. 3D reconstructions were obtained and reviewed. Exam was performed using dose reduction technique. CLINICAL HISTORY: continued pain left foot, swelling to surgical site COMPARISON: 07/18/2021 FINDINGS: There is diffuse osteopenia with somewhat mottled appearance to the bone marrow which may be in part secondary to disuse. Surgical anchor is present in the navicular and there is a large surgical staple along the osteotomy in the anterior lateral calcaneus. There is no acute fracture. The Lisfranc joint appears aligned. There is soft tissue edema at the ankle, worse laterally and along the lateral foot. There is no convincing loculated fluid collection. The Achilles tendon is intact. The remaining soft tissues are without acute abnormality. IMPRESSION: Postoperative changes of the calcaneus with anchor in the navicular. Osteopenia with mottled appearance of the marrow favored to be related to disuse. This makes evaluation for acute fracture difficult with no convincing acute fracture seen. Nonspecific soft tissue edema Reviewed, Interpreted and Dictated by Deb Robb MD Transcribed by Anna Marie Lopez Authenticated and . [facility]
== END ==
PROVIDERS: PCP Physician Assistant; Visit Provider Podiatrist
DX: G89.18 Other acute postprocedural pain (principal); M96.89 Other intraoperative and postprocedural complications and disorders of the musculoskeletal system; Z98.890 Other specified postprocedural states
CPT/HCPCS: 73700

== ENCOUNTER → 2023-10-08 09:18 | Outpatient (CLI) | payer OTHER, SELFPAY ==
[2023-10-08 10:35] VITALS: PULSE 103; PULSE 106
--- NOTE | 2023-10-08 11:32 | XR_ITS ---
FINAL REPORT CLINICAL HISTORY: Left ankle pain COMPARISON: None FINDINGS: LEFT ANKLE: Three views of the left ankle were obtained. There is no acute fracture or dislocation. There are postoperative changes in the lateral malleolus. There is mild degenerative change. Calcaneal spurs are noted. There is no soft tissue abnormality. IMPRESSION: Postoperative and degenerative changes without acute bony abnormality. Reviewed, Interpreted and Dictated by Jose Dao III, MD Transcribed by Anna Marie Lopez Authenticated and [facility]
--- NOTE | 2023-10-08 11:32 | XR_ITS ---
FINAL REPORT CLINICAL HISTORY: Left foot pain COMPARISON: None FINDINGS: Three views of the left foot were obtained. There is no acute fracture or dislocation. There are postoperative changes in the midfoot and rear foot. There is mild degenerative change. Small calcaneal spurs are noted. There is no soft tissue abnormality. IMPRESSION: Postoperative and degenerative changes without acute bony abnormality. Reviewed, Interpreted and Dictated by Jose Dao III, MD Transcribed by Anna Marie Lopez Authenticated and [facility]
== END ==
PROVIDERS: PCP Physician Assistant; Visit Provider Physician Assistant
DX: G89.18 Other acute postprocedural pain (principal); Z98.890 Other specified postprocedural states; M25.572 Pain in left ankle and joints of left foot; R06.2 Wheezing
CPT/HCPCS: 73610; 73630; 94060; 94640; 94727; 94729

== ENCOUNTER 2023-11-22 09:03 | Outpatient (CLI) | payer OTHER, SELFPAY ==
--- NOTE | 2023-11-22 09:08 | XR_ITS ---
FINAL REPORT CLINICAL HISTORY: Left foot Pain COMPARISON: 10/08/2023 FINDINGS: LEFT FOOT: Three views of the left foot were obtained. There is no acute fracture or dislocation. There are postoperative changes in the mid and rear foot. There is mild degenerative change. Small calcaneal spurs are noted. There is soft tissue swelling. IMPRESSION: Postoperative and degenerative changes. Soft tissue swelling without acute bony abnormality. Reviewed, Interpreted and Dictated by Jose Dao III, MD Transcribed by Anna Marie Lopez Authenticated and . [facility]
== END 2023-11-22 23:59 ==
LOC: RAD 09:04
PROVIDERS: PCP Physician Assistant; Visit Provider Podiatrist
DX: M79.672 Pain in left foot (principal)
CPT/HCPCS: 73630

== ENCOUNTER 2023-12-31 14:56 | Outpatient (CLI) | payer OTHER, SELFPAY ==
--- NOTE | 2023-12-31 14:58 | MR_ITS ---
FINAL REPORT CLINICAL HISTORY: Continued Ankle pain along lateral/anterior ankle. HX SURGERY MARCH 2023. MEDIAL SIDED ANKLE/ FOOT PAIN. COMPARISON: 05/01/2022 FINDINGS: Multiplanar and multisequence imaging of the left ankle was obtained without intravenous contrast. BONES/JOINT: Postoperative changes are present in the anterior calcaneus and navicular. Bone marrow signal intensity is otherwise normal. There is no edema, contusion or pathologic marrow replacement. There is degenerative joint disease present. LIGAMENTS: The anterior talofibular ligament, posterior talofibular ligament and calcaneofibular ligament are intact. The tibiofibular ligaments are intact. The deltoid and spring ligaments are within normal limits. TENDONS: The Achilles tendon is normal in size and signal intensity. The medial tendons are within normal limits. The peroneus longus and brevis tendons are within normal limits. There is no evidence of peroneus brevis split tear. The extensor tendons are within normal limits. OTHER SOFT TISSUES: There is no joint effusion, however there is diffuse nonspecific soft tissue swelling in both the ankle and the foot without a loculated fluid collection. Signal intensity within the sinus tarsi is preserved. The plantar fascia is normal in size and signal intensity. There are no additional areas of abnormal signal intensity. There are no masses or abnormal fluid collections. IMPRESSION: Postoperative change in the anterior calcaneus and navicular, without acute bone marrow edema or fracture. There is diffuse nonspecific soft tissue swelling in the ankle and the foot. Degenerative changes present without ligamentous or tendon disruption seen. Reviewed, Interpreted and Dictated by Deb Robb MD Transcribed by Beti Tapia Authenticated and [facility]
== END 2023-12-31 23:59 ==
LOC: RAD 14:58
PROVIDERS: PCP Physician Assistant; Visit Provider Podiatrist
DX: M79.672 Pain in left foot (principal); M25.372 Other instability, left ankle; M84.375A Stress fracture, left foot, initial encounter for fracture; S93.492S Sprain of other ligament of left ankle, sequela
CPT/HCPCS: 73721

== ENCOUNTER 2024-01-08 18:42 | Outpatient (CLI) | payer OTHER, SELFPAY ==
[2024-01-08 18:16] LABS: Basophils # 0.1 K/mm3 (0-0.2); Basophils % 0.6 % (0.1-2.0); Eosinophils # 0.1 K/mm3 (0.0-0.4); Eosinophils % 0.6 % (0.1-12.0); Hematocrit 42.4 % (42.0-52.0); Hemoglobin 13.3 g/dL (14.1-18.0); Lymphocytes # 1.5 K/mm3 (0.7-4.5); Lymphocytes % 18.8 % (10-50); Mean Corpuscular HGB Conc 31.4 g/dL (31.8-35.4); Mean Corpuscular Hemoglobin 27.2 pg (27.0-31.2); Mean Corpuscular Volume 86.5 fl (80-94); Mean Platelet Volume 8.2 fl (7.4-10.4); Monocytes # 0.4 K/mm3 (0.1-1.0); Monocytes % 4.6 % (1.7-9.3); Neutrophils % 75.4 % (37.0-80.0); Platelet Count 259 K/mm3 (142-424); Red Cell Distribution Width 14.4 % (11.5-17.5); White Blood Count 7.9 K/mm3 (4.8-10.8)
[2024-01-08 18:21] LABS: Alanine Aminotransferase 56 U/L (12-78); Albumin Level 4.6 g/dl (3.5-5.0); Albumin/Globulin Ratio 1.6 (1.1-1.8); Alkaline Phosphatase 91 U/L (38-126); Anion Gap 12.3 mEq/L (5-15); Aspartate Amino Transferase 40 U/L (17-59); Bilirubin,Total 0.6 mg/dl (0.2-1.3); Blood Urea Nitrogen 18 mg/dl (9-20); Calcium 9.4 mg/dl (8.4-10.2); Carbon Dioxide 28 mmol/L (22.0-30.0); Chloride 104 mmol/L (98-107); Chol/HDL Ratio 4.4 (1-3.5); Cholesterol 169 mg/dl (140-200); Estimated Glomerular Filt Rate 71 ml/min (>60); GFR (African American) 86 ML/MIN (>60); Globulin 2.8 g/dL (1.3-3.2); Glucose 107 mg/dl (74-100); HDL Cholesterol 38 mg/dl (40-60); Potassium 4.3 mmoL/L (3.5-5.1); Sodium 140 mmol/L (136-145); Total Protein,Serum 7.4 g/dl (6.3-8.2); Triglycerides 206 mg/dl (30-150); VLDL Cholesterol 41 mg/dL (0-40)
[2024-01-08 18:34] LABS: Direct LDL Cholesterol 96.48 mg/dL (100-129)
[2024-01-08 18:47] LABS: 25-OH Vitamin D, Total 49.8 ng/mL (30-100)
[2024-01-08 18:52] LABS: Thyroid Stimulating Hormone 2.34 uIU/mL (0.465-4.68)
[2024-01-08 20:10] LABS: Hemoglobin A1C 5.9 % (4.0-6.0)
== END 2024-01-08 23:59 ==
LOC: LAB.DROPOF 18:43
PROVIDERS: PCP Physician Assistant; Visit Provider Physician Assistant
DX: E78.5 Hyperlipidemia, unspecified (principal); E66.9 Obesity, unspecified; Z68.41 Body mass index [BMI] 40.0-44.9, adult; Z79.899 Other long term (current) drug therapy; I10 Essential (primary) hypertension
CPT/HCPCS: 80053; 80061; 82306; 83036; 84443; 85025

== ENCOUNTER 2024-01-21 16:51 | Emergency (ER) | payer OTHER, SELFPAY ==
[2024-01-21 17:10] VITALS: BP 138/94; PULSE 116; RESP 18; TEMP 37.1; O2SAT 96; BMI 41.5
--- NOTE | 2024-01-21 17:31 | ED_ITS ---
Discharge Plan Disposition Patient Disposition: Home, Self-Care Condition: Good Prescriptions Prescriptions: No Action metoprolol succinate 25 mg tablet extended release 24 hr See Rx Instructions .ROUTE .COMPLEX Qty: 90 3RF Dose Instruction: TAKE 1 TABLET BY MOUTH ONCE DAILY FOR HYPERTENSION Rx Instructions: TAKE 1 TABLET BY MOUTH ONCE DAILY FOR HYPERTENSION omeprazole 40 mg capsule,delayed release(DR/EC) See Rx Instructions .ROUTE .COMPLEX Qty: 90 3RF Dose Instruction: Take 1 capsule by mouth once daily Rx Instructions: Take 1 capsule by mouth once daily ergocalciferol (vitamin D2) 1,250 mcg (50,000 unit) capsule See Rx Instructions .ROUTE .COMPLEX Qty: 14 3RF Dose Instruction: Take 1 capsule by mouth once a week Rx Instructions: Take 1 capsule by mouth once a week famotidine 40 mg tablet See Rx Instructions .ROUTE .COMPLEX Qty: 90 0RF Dose Instruction: Take 1 tablet by mouth once daily Rx Instructions: Take 1 tablet by mouth once daily atorvastatin 10 mg tablet See Rx Instructions .ROUTE .COMPLEX Qty: 90 0RF Dose Instruction: TAKE 1 TABLET BY MOUTH ONCE DAILY AT BEDTIME Rx Instructions: TAKE 1 TABLET BY MOUTH ONCE DAILY AT BEDTIME aspirin 81 MG tablet,delayed release (DR/EC) 81 mg PO DAILY cholecalciferol (vitamin D3) 1,000 UNIT capsule 25 mcg PO DAILY Referrals Follow up/Referrals: Nohelia Alex PA [Primary Care Provider] - See instructions Activity Restrictions/Add. Instructions Additional Instructions/Restrictions: Follow up with Nohelia tomorrow as scheduled. GO TO THE ER FOR ANY WORSENING SYMPTOMS Clinical Impressions Clinical Impression: Acute viral syndrome Instructions Patient Instructions: DI for Viral Syndrome Discharge ED Provider: Shawn Meadows [facility] General Stated complaint: dizzy, nausea Time Seen by Provider: 01/21/24 17:30 History of Present Illness Provider Complaint: He states that over the past few days he has has had intermittent periods of mild dizziness. At times he has felt nauseated and had headache with the dizziness. He denies any chest pain. He denies shortness of breath. He denies any fever/chills/malaise. Related Data Home Medications Medication Instructions Recorded Confirmed aspirin 81 mg tablet,delayed 81 mg PO DAILY Blood thinner 06/21/21 01/08/24 release cholecalciferol (vitamin D3) 25 25 mcg PO DAILY Supplement 06/21/21 01/08/24 mcg (1,000 unit) capsule Previous Rx's Medication Instructions Recorded metoprolol succinate 25 mg See Rx Instructions .Route 05/09/23 tablet,extended release 24 hr .COMPLEX #90 tabs omeprazole 40 mg capsule,delayed See Rx Instructions .Route 06/06/23 release .COMPLEX #90 caps ergocalciferol (vitamin D2) 1,250 See Rx Instructions .Route 06/19/23 mcg (50,000 unit) capsule .COMPLEX #14 caps atorvastatin 10 mg tablet See Rx Instructions .Route 11/20/23 .COMPLEX #90 tabs famotidine 40 mg tablet See Rx Instructions .Route 11/20/23 .COMPLEX #90 tabs Allergies Allergy/AdvReac Type Severity Reaction Status Date / Time No Known Allergies Allergy Verified 01/21/24 17:44 [facility] Disclaimer: The information contained in this section may have been updated after the patient was seen, as this information can be updated by other users. Medical History (Updated 01/21/24 @ 18:44 by Shawn Meadows APRN) FELIX (obstructive sleep apnea) Family history of asthma History of smoking 30 or more pack years Dyspnea on exertion Restrictive lung disease Sleep apnea History of COVID-19 History of gastroesophageal reflux (GERD) Hyperlipidemia Hypertension Sinus bradycardia FELIX (obstructive sleep apnea) Osteoarthritis Encounter for pre-operative cardiovascular clearance Former smoker History of cocaine abuse Abnormal ECG Surgical History Status post left foot surgery Status post surgery S/P ACL repair History of left knee surgery History of repair of right hip joint History of wisdom tooth extraction Status post phlebectomy Family History Mother Family history of myocardial infarction Family history of diabetes mellitus type II Father Stroke TIA/Mini stoke/Aneurysm Social History Smoking Status: Former smoker smoking status stop date: 2015 alcohol intake: former substance use type: former substance user current occupational status: unemployed Travel in the last 8 weeks: None ROS Obtained: Yes All systems reviewed & no additional complaints except as documented Constitutional Constitutional: Denies chills and Denies fever(s) Eyes Eyes: Denies eye discharge ENT Ears, Nose, Mouth, and Throat: Denies dizziness, Denies otalgia and Denies sore throat Cardiovascular Cardiovascular: Denies chest pain Respiratory Respiratory: Denies shortness of breath, Denies chest congestion, Denies cough, Denies stridor and Denies wheezing Gastrointestinal Gastrointestingal: Denies nausea or vomiting Musculoskeletal Musculoskeletal: Reports system reviewed and no additional complaints, except as documented and Denies arthralgias Integumentary/Breasts Skin/Breast: Denies rash Neurologic Neurologic: Denies dizziness and Denies paresthesias Allergic/Immunologic Allergic/Immunologic: Denies wheezing Physical Exam General General appearance: alert and in no apparent distress Head Head exam: atraumatic, normocephalic and normal inspection Eye Eye exam: Present normal appearance, PERRL and EOMI ENT ENT exam: Present normal exam, normal oropharynx, mucous membranes moist, TM's normal bilaterally and normal external ear exam Neck Neck exam: Present normal inspection, full ROM and trachea midline; Absent meningismus or lymphadenopathy Chest Chest inspection: Present normal inspection and symmetric chest wall rise; Absent tenderness Respiratory Respiratory exam: Present normal lung sounds bilaterally; Absent respiratory distress Cardiovascular Cardiovascular exam: Present regular rate and normal rhythm; Absent JVD Abdominal Exam Abdominal exam: Present soft and normal bowel sounds; Absent distention, tenderness or guarding Extremities Exam Extremities exam: Present normal inspection, full ROM and normal capillary refill; Absent calf tenderness Back Exam Back exam: Present normal inspection; Absent tenderness Neurological Exam Neurological exam: Present alert and oriented X3 Psychiatric Psychiatric exam: Present normal affect and normal mood Skin Skin exam: Present warm, dry, intact and normal color Lymphatic Lymphatic Findings: no adenopathy Medical Decision Making Medical Records Medical records reviewed: No I reviewed the patient's medical records. Henri Inquiry Pt receiving controlled substance: No ECG Data Tracing #1: I reviewed this ECG and interpreted as documented below: st at 104 ECG initial impression date: 01/21/24 ECG initial impression time: 18:30 Normal Sinus Rhythm: No Arrhythmias present: sinus tach
--- NOTE | 2024-01-21 18:18 | ECG_ITS ---
APPROVED REPORT Exam: Resting ECG HR:104 bpm ECG Measurements Heart Rate 104 AXES UT 160 P 65 QRSd 108 QRS -45 QT 317 T 72 QTc 377 Conclusion SINUS TACHYCARDIA INCOMPLETE RIGHT BUNDLE BRANCH BLOCK Electronically signed by : BRADY HESS, 01/22/2024 15:49:01
[2024-01-21 18:51] VITALS: BP 138/94; PULSE 116; RESP 18; TEMP 37.1; O2SAT 96
== END 2024-01-21 18:50 | disposition home or self-care (01) ==
PROVIDERS: Emergency Provider Nurse Practitioner Family; PCP Physician Assistant
DX: R42 Dizziness and giddiness (principal); R11.0 Nausea; R51.9 Headache, unspecified; B34.9 Viral infection, unspecified; G47.33 Obstructive sleep apnea (adult) (pediatric); E78.5 Hyperlipidemia, unspecified; I10 Essential (primary) hypertension; K21.9 Gastro-esophageal reflux disease without esophagitis; Z87.891 Personal history of nicotine dependence; R00.0 Tachycardia, unspecified
CPT/HCPCS: 93005; 99204; 99212; G0463

== ENCOUNTER 2024-01-24 15:24 | Outpatient (CLI) | payer OTHER, SELFPAY | END 2024-01-24 23:59 | LOC: RT 15:25 | PROVIDERS: PCP Physician Assistant; Visit Provider Physician Assistant | DX: R42 Dizziness and giddiness (principal) | CPT/HCPCS: 93270 ==

== ENCOUNTER 2024-01-31 16:14 | Outpatient (CLI) | payer OTHER, SELFPAY ==
--- NOTE | 2024-01-31 16:14 | MR_ITS ---
FINAL REPORT CLINICAL HISTORY: eye muscles twitches FINDINGS: Multiple projection images of the brain arterial vasculature were obtained without contrast. raw data images were also reviewed. There is no evidence of aneurysm. The internal carotid arteries are patent. The middle cerebral arteries and visualized proximal branches are patent. The anterior cerebral arteries are patent. The intracranial vertebral arteries are patent. The basilar artery is patent. The posterior cerebral arteries are patent. IMPRESSION: No major vessel occlusion. Reviewed, Interpreted and Dictated by Matthew Craig MD Transcribed by Kerri Loco Authenticated and [facility]
--- NOTE | 2024-01-31 16:14 | MR_ITS ---
FINAL REPORT CLINICAL HISTORY: eye twitch, neck pain, numbness, f/h aneurysm FINDINGS: Multiple projection images of the neck arterial vasculature were obtained without contrast. The raw data images were also reviewed. The right common carotid artery has an unremarkable appearance without evidence of stenosis or occlusion. The right internal carotid artery has an unremarkable appearance without evidence of stenosis or occlusion. The right external carotid artery is patent. The right vertebral artery is patent without evidence of stenosis. Exam is suboptimal. The left common carotid artery has an unremarkable appearance without evidence of stenosis or occlusion. The left internal carotid artery is patent without evidence of stenosis or occlusion. The left external carotid artery is patent. The left vertebral artery is patent without evidence of stenosis. IMPRESSION: Unremarkable MR angiogram of the neck without evidence of stenosis or occlusion. Reviewed, Interpreted and Dictated by Matthew Craig MD Transcribed by Kerri Loco Authenticated and [facility]
== END 2024-01-31 23:59 ==
LOC: RAD 16:14
PROVIDERS: PCP Physician Assistant; Visit Provider Physician Assistant
DX: R25.3 Fasciculation (principal); R20.0 Anesthesia of skin; R20.2 Paresthesia of skin; Z82.49 Family history of ischemic heart disease and other diseases of the circulatory system
CPT/HCPCS: 70544; 70547

== ENCOUNTER 2024-03-05 11:00 | Outpatient (RCR) | payer OTHER, SELFPAY ==
--- NOTE | 2024-01-18 16:32 | HMH.PTOPWND ---
Rehab Outpt Wound Evaluation Rehab OP Wound Evaluation Start: 01/18/24 14:56 Freq: Status: Active Protocol: Document 01/18/24 16:22 SAVANNA (Rec: 01/18/24 16:31 PHORTONI [id number]) E-signed By Ezequiel Ashton, PT Subjective/History History History This is the initial PT eval for Cisco Krueger, 48 yowm with L LE edema x ~ 1 yr. He had L foot/ankle surgery last year and has had increased edema and pain since that time. He reports pain and edema are worse with prolonged dependent positioning, and especially with walking. He presents today in a cam walker and states, I've got to go to the store and if I don't use this boot I will pay for it later. He reports PMH of HTN, HLD, OA, restrictive airway disease , FELIX, R hip ORIF, CVI, L ACL reconstruction. Subjective Subjective He reports pain currently 3/10 , at worst 10/10. He presents with 2+ pitting edema to the L lower leg from mid-calf distally. He has mild blanchable erythema to the L lower leg as well. New diagnosis of cancer in past 12 No months? Lymphedema Eval Classification of Lymphedema Secondary Lymphedema Yes Stemmer's sign Stemmer's Sign yes Stage of Lymphedema Lymphedema stages Stage I (Pitting edema, reduces w/ elevation, no fibrosis) Skin Changes Dry Skin Yes Taut, Shiny Skin Yes Redness Yes Brittle Uneven Nails Yes Other Changes Yes Pain Scale Pain Scale (0-10) 10 Affected Extremities Areas Affected by Lymphedema/Edema Left Lower Extremity Lower Extremity Measurements Left MTP Measurement (cm) 24.4 Heel Measurement (cm) 36.8 10 cm Proximal to Lateral Malleoli 28.5 Measurement (cm) 20 cm Proximal to Lateral Malleoli 36.5 Measurement (cm) 30 cm Proximal to Lateral Malleoli 43.7 Measurement (cm) 40 cm Proximal to Lateral Malleoli 39.8 Measurement (cm) 50 cm Proximal to Lateral Malleoli 0 Measurement (cm) 60 cm Proximal to Lateral Malleoli 0 Measurement (cm) Lower Extremity Measurement Total (cm) 209.7 Manual Lymphatic Drainage Treatment Area MLD Treatment Area Left Lower Extremity Wound Problems/Impairments Impairments Problems/Impairmments Palpation Tenderness,Impaired Range of Motion,Impaired Strength,Impaired Endurance, Impaired Gait Pattern,Impaired Walking,Impaired Standing, Impaired Sitting,Impaired Household Care,Impaired Stair Climbing,Impaired Incline Stepping,Impaired Stepping on Uneven Surface,Impaired Recreational Activities, Increased Edema,Lymphedema Present,Subjective C/O Pain, Impaired Self Care/Self Management Prognosis Rehab Potential Good Clinical Impression Consistent with Diagnosis Yes Short Term Goals Number of Weeks 2 Decrease Edema Yes: 1+ pitting edema L LE Decrease Subjective C/O Pain Yes: 8/10 at worst L LE Patient to Understand Lymphedema Yes Treatment and Exercises Decrease Girth Measurments by (cm) Yes: L LE total by 5 cm Half-Way Goals Number of Weeks 4 Decrease Edema Yes: No pitting edema L LE Decrease Subjective C/O Pain Yes: 5/10 at worst L LE Patient to be Ind w/ HEP Yes Patient to be Ind w/ [place] Yes Compression Garments Patient to Adhere Lymphedema Precautions Yes Decrease Girth Measurments by (cm) Yes: L LE total by 15 cm Outpatient Therapy Plan of Care Treatment Plan May Include Therapeutic Exercise Including Home Yes Exercise Program Manual Therapy Techniques Yes Neuromuscular Re-education Yes Therapeutic Activities to Return to Yes Previous Functional/Work Level Gait Training Yes ADL/Self Care Education Yes Orthotics/Bracing/Splinting Yes Vasopneumatic Compression Pump Yes Manual Lymphatic Drainage Yes Eval/Re-Eval Yes Frequency Times per week 2 Duration Number of Weeks 4 Addendums This patient is a candidate for social No or vocational rehab? Patient/Guardian verbally acknowledges Yes understanding of treatment program and consents to further treatment? Patient/Guardian verbally acknowledges Yes understanding of diagnosis, prognosis and goals for treatment? Eval Complexity PT Charges 29151 - High Complexity PHYSICIAN CERTIFICATION: I certify the specified therapy services for Cisco Krueger are required, authorized, and reviewed every 30 days.
--- NOTE | 2024-02-19 10:38 | HMH.RHREAS ---
Rehab Reassessment Rehab OP Re-assessment Start: 01/18/24 14:56 Freq: Status: Active Protocol: Document 02/19/24 10:29 SAVANNA (Rec: 02/19/24 10:38 SAVANNA [id number]) E-signed By Ezequiel Ashton, PT Rehab Re-assessment Subjective Subjective Pt reports pain 2/10 today. He reports overall feeling less swollen, but remains very painful in his L LE. Objective Objective Notes Circumferential measurements: L LE total is 205.1 cm, which is -4.6 cm since IE. Edema: 1+ pitting edema this date in the L lower leg. Assessment Progress Assessment Progressing as Expected Assessment Notes Pt has shown overall decrease in edema, but pain continues to limit all functional mobility. Pain is worse with walking. He continues to need skilled intervention to return to prior level of function. Patient goals met ST,2,[address] LT,2,3,4,5,6 Plan Plan Continue per initial POC Frequency of Therapy 2 x/wk Duration of therapy 4 wks Time and Billing Re-Eval Time 13 Re-Eval Billing Units 1 PHYSICIAN CERTIFICATION: I certify the specified therapy services for Cisco Krueger are required, authorized, and reviewed every 30 days.
== END 2024-03-05 12:00 | disposition home or self-care (01) ==
LOC: PT 11:00
PROVIDERS: Visit Provider Podiatrist
DX: M79.672 Pain in left foot (principal); R60.0 Localized edema
CPT/HCPCS: 97140; 97163; 97164

== ENCOUNTER 2024-03-05 12:35 | Outpatient (POV) | payer OTHER, SELFPAY ==
[2024-03-05 13:16] VITALS: BP 139/73; PULSE 99; RESP 20; O2SAT 96; BMI 41.3
--- NOTE | 2024-03-05 15:58 | EXP.PAIN.OV ---
HPI Data of Consult Patient: new to practice Consult date: 03/05/24 Requesting Physician: Puja Abel APRN Primary Care Provider: STAN Elizabeth Consult Narrative Reason for consult: Left ankle/foot pain History of present illness: Mr. Krueger is a 48 year old male who presents today as a new patient. He is a referral from Dr. Bartlett's office. Today he rates 5 out of 10. Patient states that his pain is all related to his left foot and ankle. Patient states this pain has been going on for the last 2 to 3 years. Patient states that initially this was related to an injury he suffered at work where he ended up tearing his ACL and affecting his whole left ankle. Patient states that he ended up having surgery about a year ago after he had already tried multiple injections [id number] medications such as Tylenol and ibuprofen along with heat ice and topicals with minimal relief. Patient did also undergo physical therapy with no additional relief. He states that the surgery ended up being very extensive and that they ended up doing a bone graft and rebuild his arch. He states that this continues to be an area of chronic pain. He does present today with the boot on his entire left lower leg ankle and foot. Patient does state that he frequently has swelling in this extremity male and does go for lymphatic therapy to help improve drainage. Patient does also state that he feels like there is sensation change between his left and his right foot. He describes this as a sharp pain that is constantly aching and worse with increased activity. Patient states the pain does interfere with his ability perform activities of daily living. Patient does also state that the multiple injections he has had with the last one just being the last couple weeks ago has provided no additional improvement. He states he relies on a cane or crutches to help ambulate. He does state that he has chronic neck issues and he is scheduled for an MRI coming up related to this. He also states that he has chronic pain in his hips that he knows he will have to have these replaced at a later date. Patient states he is scheduled for an EMG at the end of the month. Patient does also state that he continues to take ibuprofen 800 mg however it only minimally helps. Patient does state that he has a drug history and has been clean. His Henri has been reviewed and is appropriate. CC: Puja Abel APRN [facility] Disclaimer: The information contained in this section may have been updated after the patient was seen, as this information can be updated by other users. Medical History (Updated 03/05/24 @ 14:50 by Anyi Sumner RN) History of cocaine abuse Abnormal electrocardiogram [ECG] [EKG] FELIX (obstructive sleep apnea) Family history of asthma History of smoking 30 or more pack years Dyspnea on exertion Restrictive lung disease Sleep apnea History of COVID-19 History of gastroesophageal reflux (GERD) Hyperlipidemia Hypertension Sinus bradycardia FELIX (obstructive sleep apnea) Osteoarthritis Encounter for pre-operative cardiovascular clearance Former smoker Abnormal ECG Surgical History Status post left foot surgery Status post surgery S/P ACL repair History of left knee surgery History of repair of right hip joint History of wisdom tooth extraction Status post phlebectomy Family History Mother Family history of myocardial infarction Family history of diabetes mellitus type II Father Stroke TIA/Mini stoke/Aneurysm Social History Smoking Status: Former smoker smoking status stop date: 2015 alcohol intake: former substance use type: former substance user current occupational status: unemployed Travel in the last 8 weeks: None Review of Systems Review of Systems Review of systems:: pertinent systems reviewed and negative unless documented below Review of systems (narrative): Review of Systems: General: No recent weight changes, no fever, no sleep disturbances Respiratory: No cough, no shortness of air, no recurring pulmonary infections Cardiovascular/peripheral vascular: No chest pain, no palpitations, no edema, no shortness of breath Gastrointestinal: No new onset incontinence, normal bowel movements reported Genitourinary: No new onset incontinence Musculoskeletal: Left foot/ankle pain, bilateral hip pain, neck pain Psychiatric: [Normal mood/affect] Neurological: [Denies weakness in extremities], [denies balance issues] Meds Home Medications and Allergies Home Medications Medication Instructions Recorded Confirmed Type aspirin 81 mg tablet,delayed 81 mg PO DAILY Blood thinner 06/21/21 03/05/24 History release cholecalciferol (vitamin D3) 25 25 mcg PO DAILY Supplement 06/21/21 03/05/24 History mcg (1,000 unit) capsule metoprolol succinate 25 mg See Rx Instructions .Route 05/09/23 03/05/24 Rx tablet,extended release 24 hr .COMPLEX #90 tabs omeprazole 40 mg capsule,delayed See Rx Instructions .Route 06/06/23 03/05/24 Rx release .COMPLEX #90 caps ergocalciferol (vitamin D2) 1,250 See Rx Instructions .Route 06/19/23 03/05/24 Rx mcg (50,000 unit) capsule .COMPLEX #14 caps meclizine 25 mg tablet (Dramamine 25 mg PO TID PRN dizziness #30 tabs 01/22/24 03/05/24 Rx (meclizine)) atorvastatin 10 mg tablet See Rx Instructions .Route 02/10/24 03/05/24 Rx .COMPLEX #90 tabs famotidine 40 mg tablet See Rx Instructions .Route 02/10/24 03/05/24 Rx .COMPLEX #90 tabs New Prescriptions to Start Prescriptions: Allergies Allergy/AdvReac Type Severity Reaction Status Date / Time No Known Allergies Allergy Verified 03/05/24 14:09 Objective Vital signs: Pulse Resp BP Pulse Ox O2 Del Method 99 H 20 139/73 96 Room Air 03/05/24 13:16 03/05/24 13:16 03/05/24 13:16 03/05/24 13:16 03/05/24 13:16 Narrative: Physical Exam: General: Alert and oriented x3, no acute distress, pleasant and cooperative Lungs: Respirations even and unlabored, symmetrical chest expansion Eyes: PERRL Musculoskeletal: Flexion and extension of left ankle somewhat guarded secondary to pain, [antalgic gait noted] Neurological: Speech clear, no gross sensory deficit Additional findings Additional findings: FINDINGS: Multiplanar and multisequence imaging of the left ankle was obtained without intravenous contrast. BONES/JOINT: Postoperative changes are present in the anterior calcaneus and navicular. Bone marrow signal intensity is otherwise normal. There is no edema, contusion or pathologic marrow replacement. There is degenerative joint disease present. LIGAMENTS: The anterior talofibular ligament, posterior talofibular ligament and calcaneofibular ligament are intact. The tibiofibular ligaments are intact. The deltoid and spring ligaments are within normal limits. TENDONS: The Achilles tendon is normal in size and signal intensity. The medial tendons are within normal limits. The peroneus longus and brevis tendons are within normal limits. There is no evidence of peroneus brevis split tear. The extensor tendons are within normal limits. OTHER SOFT TISSUES: There is no joint effusion, however there is diffuse nonspecific soft tissue swelling in both the ankle and the foot without a loculated fluid collection. Signal intensity within the sinus tarsi is preserved. The plantar fascia is normal in size and signal intensity. There are no additional areas of abnormal signal intensity. There are no masses or abnormal fluid collections. IMPRESSION: Postoperative change in the anterior calcaneus and navicular, without acute bone marrow edema or fracture. There is diffuse nonspecific soft tissue swelling in the ankle and the foot. Degenerative changes present without ligamentous or tendon disruption seen. Reviewed, Interpreted and Dictated by Deb Robb MD Transcribed by Beti Tapia Authenticated and [facility] Assessment and Plan *Assessment and plan (1) CRPS (complex regional pain syndrome type I): Status: Acute Qualifiers: Complex regional pain syndrome affected site: lower extremity Laterality: left Qualified Code(s): G90.522 - Complex regional pain syndrome I of left lower limb Category: Medical Code(s): G90.50 - Complex regional pain syndrome I, unspecified (2) Left ankle instability: Status: Acute Category: Medical Code(s): M25.372 - Other instability, left ankle (3) Bilateral hip pain: Status: Chronic Category: Medical Code(s): M25.551 - Pain in right hip; M25.552 - Pain in left hip (4) Neck Pain: Status: Acute Category: Medical Code(s): M54.2 - Cervicalgia (5) Peroneal tendinitis of left lower extremity: Status: Acute Category: Medical Code(s): M76.72 - Peroneal tendinitis, left leg Plan Patient is experiencing significant pain throughout his left foot and ankle with limited range of motion. Patient does have symptoms consistent with CRPS of the left lower extremity. I have discussed with the patient that we can do additional injection therapy such as a nerve block that may be beneficial however I do believe he would be more beneficial candidate of a spinal cord stimulator or peripheral nerve block. We did discuss at length the risk and benefits of both of these devices and educational handouts were given on them both. Due to the patient's other pains including his bilateral hips I have discussed with the patient that I do believe he would benefit more with the spinal cord stimulator system to target all of these pains. Patient will return to clinic in 1 month for reevaluation of symptoms and plan of care. Patient has been instructed to contact the clinic with any concerns before the next appointment. Dr. Hall has reviewed this note and agrees with this plan of care. This note was dictated using voice recognition software and make contain errors or omissions.
== END 2024-03-05 23:59 | disposition home or self-care (01) ==
LOC: SC.PAIN 12:36
PROVIDERS: PCP Physician Assistant; Visit Provider Nurse Practitioner Family
DX: G90.522 Complex regional pain syndrome I of left lower limb (principal); M25.372 Other instability, left ankle; M25.551 Pain in right hip; M25.552 Pain in left hip; M54.2 Cervicalgia; M76.72 Peroneal tendinitis, left leg
CPT/HCPCS: 99202; G0463

== ENCOUNTER 2024-03-11 14:20 | Outpatient (CLI) | payer OTHER, SELFPAY ==
--- NOTE | 2024-03-11 14:25 | MR_ITS ---
FINAL REPORT CLINICAL HISTORY: CERVICALGA COMPARISON: October 30, 2022 FINDINGS: Multiplanar MR imaging of the cervical spine was performed without contrast. On the sagittal T2-weighted images, disc degeneration is seen at multiple levels. There is no evidence of fracture. There is mild kyphosis centered at C5-6. The cervical spinal cord has an unremarkable appearance without evidence of mass, edema or syrinx. The cervicomedullary junction is normal. C2-3: There is no significant canal stenosis or neural foraminal narrowing. C3-4: There is no significant canal stenosis or neural foraminal narrowing. C4-5: A disc bulge is present. Mild bilateral neural foraminal narrowing is seen. C5-6: A disc osteophyte complex is present. Moderate bilateral neural foraminal narrowing is seen. There is mild central canal stenosis with an AP diameter of the thecal sac of 7 mm. C6-7: A disc osteophyte complex is present. There is a left foraminal disc protrusion which causes cord contouring. Left C7 nerve root impingement is seen. There is mild right and severe left neural foraminal narrowing, visually stable. Mild central canal stenosis is noted with an AP diameter of the thecal sac of 7 mm. C7-T1: A small central disc protrusion mildly indents the thecal sac and is visually stable. IMPRESSION: Multilevel degenerative disc disease and spondylosis, overall stable since the prior examination. Left foraminal C6-7 disc protrusion with left C7 nerve root impingement and mild central canal stenosis. Mild central canal stenosis at C5-6. Stable small central C7-T1 disc protrusion. Authenticated and ERN
--- NOTE | 2024-03-11 14:25 | MR_ITS ---
FINAL REPORT CLINICAL HISTORY: RADICULOPATHY, CERVICAL REGION FINDINGS: Multiplanar MR imaging of the thoracic spine was performed without contrast. On the sagittal T2-weighted images, disc degeneration is seen at multiple levels. A mild chronic T12 compression fracture is seen. There is no evidence of acute fracture. Several hemangiomas are present. The vertebral alignment is normal. The thoracic spinal cord has an unremarkable appearance without evidence of mass, edema or syrinx. There is no evidence of significant canal stenosis or cord compression. On the axial images, annular bulges are seen at multiple levels. A small central T1-2 disc protrusion mildly indents the thecal sac. A small right paracentral T6-7 disc protrusion mildly indents the thecal sac. There is also a small right paracentral T7-8 disc protrusion a small left paracentral T8-9 disc protrusion is also seen. There is no evidence of significant canal stenosis or cord compression. No paraspinous soft tissue abnormality is identified. IMPRESSION: Multilevel mild degenerative disc disease and spondylosis. Multiple disc protrusions as described. No evidence of significant central canal stenosis or cord compression. Authenticated and ERN
== END 2024-03-11 23:59 | disposition home or self-care (01) ==
LOC: RAD 14:21
PROVIDERS: PCP Physician Assistant; Visit Provider Orthopaedic Surgery
DX: M54.2 Cervicalgia (principal); M54.12 Radiculopathy, cervical region
CPT/HCPCS: 72141; 72146; 76376

== ENCOUNTER 2024-03-18 06:59 | Outpatient (CLI) | payer OTHER, SELFPAY ==
[2024-03-18] VITALS (8 sets, daily range): BP systolic 88–128; BP diastolic 53–73; PULSE 61–77; RESP 18; TEMP 37.2; O2SAT 96–98; BMI 41.3
--- NOTE | 2024-03-18 07:00 | CA_ITS ---
APPROVED REPORT EXAM: Comprehensive 2D, Doppler, and color-flow Echocardiogram General Service Technician: YURIY Fitch, RVS Ht: 5 ft 10 in Wt: 294lbs BSA: 2.46 BP: 134/76 mmHg Indications: abn ekg, cp,sob, htn, smoker 2D Dimensions IVSd 1.16 cm LVEF (Visual) 57.30 % PWd 1.02 cm LA Volume 70.70 mL LVDd 4.48 cm LA Volume Index 28.10 mL/m2 (M/F) 16-34 LVDs 3.14 cm Left Atrium 3.16 cm M-Mode Dimensions LA Diam 3.91 cm (1.9-4.0) EPSs 0.57 cm TAPSE 1.88 (<1.7) LV Diastology E Decel Time 140 (160-240 msec) E/A Ratio 1.65 MED A' 11.00 cm/s LAT A' 9.40 cm/s Aortic Valve MENG Index 1.23 cm2/m2 AoV Peak Kevin. 128.0 (50-130 cm/s) AO Peak GR. 6.60 mmHg AO Mean GR. 3.20 (<5 mmHg) AO VTI 28.1 (18-25 cm) MENG (VTI) 3.10 (2.5-4.5 cm2) Mitral Valve MV A Velocity 61.0 (40-130 cm/s) E/A Ratio 1.65 Pulmonary Valve PV Peak Velocity 76.0 (50-150 cm/s) Left Ventricle The left ventricle is normal size. The left ventricular systolic function is normal. The left ventricular ejection fraction is within the normal range. There is normal left ventricular wall thickness. There is normal LV segmental wall motion. The left ventricular diastolic function is normal. LVEF is 55%. Right Ventricle The right ventricle is normal size. The right ventricular systolic function is normal. Atria The left atrium size is normal. The right atrium size is normal. There is no Doppler evidence of interatrial shunt. Aortic Valve The aortic valve opens well. There is no aortic valvular stenosis. No aortic regurgitation is present. Mitral Valve The mitral valve is normal in structure. No evidence of mitral valve stenosis. There is no mitral valve regurgitation noted. Tricuspid Valve The tricuspid valve leaflets are thin and pliable. Trace tricuspid regurgitation. There is insufficient TR jet to estimate RVSP. Pulmonic Valve The pulmonary valve is normal in structure. Trace pulmonic regurgitation. Great Vessels The aortic root is normal in size. The ascending aorta is normal in size. IVC is normal in size and collapses >50% with inspiration. Pericardium There is no pericardial effusion. Other Information Study Quality: Adequate Conclusion Normal biventricular systolic function. No significant valvular stenosis or regurgitation. Electronically signed by : Kelley Joiner MD 03/20/2024 00:12:33
--- OUTSIDE RECORDS SUMMARY | 2024-03-18 07:02 | XMS_ITS | Clinical Summary ---
Author Name Unknown Address [address] [place] [address] [place] [address] Phone Organization [facility] Address [address] [address] Phone Care Team Providers Care [employer] Operator Name Role Phone Rosario BACA, Kevin Wallis Unavailable [phone] Nohelia Alxe PA-C Primary Care Provider [phone] Reason for Visit and Chief Complaint The Chief Complaint is: Cervical pain Problems Includes: Problems addressed during this encounter and other active Problems All Visits Onset Date Resolved Date Provider Condition S tatus Neck Pain 10/23/2022 Tim Kohler MD Active Last Documented On 2 10:11AM ; [facility], [facility] Joint Pain in the Left Knee 12/04/2017 Chandler Al MD Active Last Documented On 8 3:07PM ; [facility], [facility] Plan of Treatment Pending Tests Order Diagnosis Results Due Ordering P rovider Radiology - MRI MRI Cervical Spine 11/06/22 Alma Kohler MD Last Documented On 2 11:31AM ; [facility], [facility] Radiology - MRI MRI Thoracic Spine Radiculopathy, cervical region 02/25/24 Tim Kohler MD Last Documented On 4 8:45AM ; [facility], [facility] Radiology - MRI MRI Cervical Spine Cervicalgia 02/25/24 Tim Kohler MD Last Documented On 4 8:45AM ; [facility], [facility] Future Appointments Date Time Location Provi nova Follow Up 04/07/2024 8:45AM [facility] RUBYWale Kohler MD Last Documented On 4 10:22AM ; [facility], [facility] Instructions to patient Lose weight Last Documented On 3 9:00AM ; [facility], [facility] Assessments Includes: Assessments from this encounter Findings - Overweight - Last Documented On 09/10/2023 11:37AM ; [facility], [facility] Instructions Includes: Instructions from this encounter Instructions to patient Lose weight Last Documented On 3 9:00AM ; [facility], [facility] Medical Equipment - Implanted Devices Includes: Current Devices No Medical Equipment Recorded Medications Includes: Medications discussed during this encounter and other current Medications Current Medications (continue as prescribed) Adult Aspirin Regimen 81 MG Oral Tablet Delayed Releas e 09/10/2023 Provider: Diagnosis: Last Documented On 3 8:59AM By Sandrine Kerr ; [facility], [facility] EQL Galt 3 Fish Oil 1000 MG Oral Capsule 09/10/2023 Provider: Diagnosis: Last Documented On 3 9:00AM By Sandrine Kerr ; [facility], [facility] Atorvastatin Calcium 10 MG Oral Tablet 11/13/2022 Pr ovider: Diagnosis: Last Documented On 3 9:18AM By Kadie Boyd ; [facility], [facility] Famotidine 40 MG Oral Tablet 11/12/2022 Provider: Diagnosis: Last Documented On 3 9:18AM By Kadie Boyd ; [facility], [facility] Metoprolol Succinate ER 25 M G Oral Tablet Extended Release 24 Hour 11/05/2022 Provider: Diagnosis: Last Documented On 3 9:18AM By Kadie Boyd ; [facility], [facility] Past Medications on file Omeprazole 40 MG Oral Capsule Delayed Release 09/10/20 23 - 12/09/2023 Provider: Diagnosis: Last Documented On 3 9:06AM By Tim Kohler ; [facility], [facility] Vitamin D (Ergocalciferol) 1 .25 MG (74987 UT) Oral Capsule 09/10/2023 - 10/15/2023 Provider: Diagnosis: Last Documented On 3 9:07AM By Tim Kohler ; [facility], [facility] Keflex 500MG Oral Capsule 10/04/2018 - 10/11/2018 Prov ider: Steve Romero MD Diagnosis: three times a day Last Documented On 8 9:52AM By Lilian Mccauley ; [facility] [place] 7.5-325MG Oral Tablet 09/19/2018 - 09/29/2018 Pr ovider: Steve Romero MD Diagnosis: 1 tab every 6 hrs prn pain 1 tablet every 6 hours for pain, post op Last Documented On 8 11:08AM By Gaviota Ray ; [facility] Medications Administered Includes: Administered Medications from this encounter No Administered Medications Recorded Vital Signs Includes: Vital Signs from this encounter Vital Name 09/10/2023 09:05A Height (in) 70 Weight (lb) 290 Body Mass Index 41.6 Body Surface Area 2.4 Note: ct Last Documented: On 09/10/2023 9:05AM ; [facility] Results Includes: Results discussed during this encounter No Results Recorded For Specified Dates History of Present Illness Includes: History of Present Illness from this encounter JENNIFER JARVIS is a 47 year old male. - Allergy list reviewed - Problem list reviewed - Medication list reviewed - Previous history of new onset pain Injury is not work related or an automotive accident - Patient pain level from 1-10: 2 -2 - Yes, previous treatment. with Dr. Rodriguez - History of Physical Therapy @ [facility] starting 10/26/2022-currently Medications used for this condition: This is a very pleasant 47-year-old man here for a 6-month myelopathy checkup. He denies any significant neck pain or any significant changes in his fine motor control in his hands or any significant changes in his balance. As a side note, he did undergo a fairly extensive left foot surgery with a manager business development hospice at [facility]. Social History Description Last Updated Caffeine use 11/13/2022 Last Documented On 3 9:00AM ; [facility] No recent change in diet 11/13/2022 Last Documented On 3 9:00AM ; [facility] Not a current smoker. 11/13/2022 Last Documented On 3 9:00AM ; [facility] Not exercising regularly 11/13/2022 Last Documented On 3 9:00AM ; [facility] Not using alcohol 11/13/2022 Last Documented On 3 9:00AM ; [facility] Not using drugs 11/13/2022 Last Documented On 3 9:00AM ; [facility] Tobacco non-user 11/13/2022 Last Documented On 3 9:00AM ; [facility] Smoking Status Unknown Procedures and Surgical History Includes: Procedures from this encounter Procedures Code Diagnosis Performing Provider Service L ocation Service Date use of tobacco assessment performed 1000F Last Documented On 3 9:00AM ; [facility] no influenza immunization patient refuse d Last Documented On 3 9:00AM ; [facility] review of medications documented 1160F Last Documented On 3 9:03AM ; [facility] EMG was performed 12/19/2021 BUE @ [facility] ~04/24/20 BUE @ [facility] [id number] Last Documented On 3 9:00AM ; [facility] an X-ray was performed 09/25/2022 Neck @ [facility] [id number] Last Documented On 3 9:00AM ; [facility] an MRI was performed 10/30/2022 CSpine @ [facility] [id number] Last Documented On 3 9:00AM ; [facility] Surgical History Last Updated History of total knee arthroplasty ACL&M eniscus repair 10/23/2022 Last Documented On 3 9:00AM ; [facility] Medical History Includes: Medical History addressed during this encounter Description Last Updated slipped femoral epiphysis ~Hearburn/Acid reflux 09/10/2023 Last Documented On 3 11:37AM ; [facility] History of Heartburn / Acid Reflux 11/13 Last Documented On 3 9:00AM ; [facility] History of Sleep Apnea 11/13/2022 Last Documented On 3 9:00AM ; [facility] No recent immunization for flu 3 Last Documented On 3 9:00AM ; [facility], [facility] No recent immunization for pneumococcal pneumonia 11/13/2022 Last Documented On 3 9:00AM ; [facility], [facility] Past Surgical History: Slipp ed femoral epiphysis ~Wisom teeth ~Varicose veins 11/13/2022 Last Documented On 3 9:00AM ; [facility], [facility] Family History Includes: Family History addressed during this encounter Description Last Updated Family history of heart disease 11/13/19 23 Last Documented On 3 9:00AM ; [facility], [facility] Family history of diabetes mellitus 05/05 Last Documented On 3 9:00AM ; [facility] Family history of hypertension 9 Last Documented On 3 9:00AM ; [facility], [facility] Family history of rheumatoid arthritis 0 05/15/2019 Last Documented On 3 9:00AM ; [facility], [facility] Review of Systems Includes: Review of Systems from this encounter Systemic: Not feeling tired and no recent weight loss. Recent weight gain. Head: No headache. Sinus pain. Eyes: No vision problems, no Cataracts, no Glasses/Contacts, and no Glaucoma. Otolaryngeal: No hearing loss and no tinnitus. Cardiovascular: No chest pain or discomfort, no palpitations, and no Hypertension. High Cholesterol. Pulmonary: No daytime asthma symptoms and no chronic cough. No wheezing. Gastrointestinal: Heartburn. No abdominal pain. No Indigestion. Acid Reflux. No Peptic Ulcer, no GI Stomach Bleed, and no Ulcers. Endocrine: No hot flashes, no muscle weakness, no Diabetes, no Hypothyroid, and no Hyperthyroid. Hematologic: No easy bleeding, no tendency for easy bruising, and no Anemia. Musculoskeletal: No Arthritis. Lower back pain. No soft tissue swelling. Pain localized to one or more joints. Neurological: Dizziness. No convulsions. Numbness. Psychological: Anxiety. No emotional lability, no depression, and no insomnia. Not crying for no reason. Skin: No dry skin. No Ulcers, no Scars, and no rash. Allergic and Immunologic: Complaint of seasonal allergic reaction. reviewed 09/10/2023 Mental Status Includes: Mental Status from this encounter Description Anxiety Functional Status Includes: Functional Status from this encounter No Functional Status Recorded Physical Exam Includes: Physical Exam from this encounter Allergies Includes: Active Allergies No Known Allergies Encounters Encounter Provider Location Date Check-In Time Check-Out Time Diagnosis Follow Up Tim garcia MD [facility] 3 8:58AM 9:18AM Overweight Insurance Includes: Active Insurance Policies Plan Name Member ID Group # Subscriber Relationship Effect hay Dates 1 - [employer] [facility] [id number] VAN JARVIS Self 1 - Unknown Clinical Notes Includes: Clinical Notes from this encounter * Progress note Date Encounter Last Documented by 09/10/2023 Follow Up Last documented on 09/10/2023; 11:37 AM, Tim Ayala MD; [facility], [facility] Active Problems & Conditions - Joint Pain in the Left Knee - Neck Pain Chief Complaint The Chief Complaint is: Cervical pain. Referred Here Referred by [facility]. History of Present Illness VAN JARVIS is a 47 year old male. - Allergy list reviewed - Problem list reviewed - Medication list reviewed - Previous history of new onset pain Injury is not work related or an automotive accident - Patient pain level from 1-10: 2 -2 - Yes, previous treatment. with Dr. Rodriguez - History of Physical Therapy @ [facility] starting 10/26/2022-currently Medications used for this condition: This is a very pleasant 47-year-old man here for a 6-month myelopathy checkup. He denies any significant neck pain or any significant changes in his fine motor control in his hands or any significant changes in his balance. As a side note, he did undergo a fairly extensive left foot surgery with a manager business development hospice at [facility]. Current Medication - Adult Aspirin Regimen 81 MG Oral Tablet Delayed Release take as directed 0 days, 0 refills - Atorvastatin Calcium 10 MG Oral Tablet 90 days, 0 refills - EQL Galt 3 Fish Oil 1000 MG Oral Capsule take as directed 0 days, 0 refills - Famotidine 40 MG Oral Tablet 90 days, 0 refills - Metoprolol Succinate ER 25 MG Oral Tablet Extended Release 24 Hour 30 days, 0 refills - Omeprazole 40 MG Oral Capsule Delayed Release 90 days, 0 refills - Vitamin D (Ergocalciferol) 1.25 MG (56555 UT) Oral Capsule take as directed 35 days, 0 refills Past Medical/Surgical History Reported: Immunization History: No recent immunization for flu and not for pneumococcal pneumonia. Diagnoses: Sleep Apnea Heartburn / Acid Reflux Slipped femoral epiphysis Hearburn/Acid reflux. Surgical: - Past Surgical History: Slipped femoral epiphysis Wisom teeth Varicose veins - Total knee arthroplasty ACL&Meniscus repair Social History Not a current smoker. Current diet: No recent change in diet. Caffeine use: Caffeine use. Tobacco use: Tobacco non-user. Alcohol: Not using alcohol. Drug Use: Not using drugs. Habits: Not exercising regularly. Allergies - No Known Allergies Family History Heart disease Systemic hypertension Diabetes mellitus Rheumatoid arthritis Review Of Systems Systemic: Not feeling tired and no recent weight loss. Recent weight gain. Head: No headache. Sinus pain. Eyes: No vision problems, no Cataracts, no Glasses/Contacts, and no Glaucoma. Otolaryngeal: No hearing loss and no tinnitus. Cardiovascular: No chest pain or discomfort, no palpitations, and no Hypertension. High Cholesterol. Pulmonary: No daytime asthma symptoms and no chronic cough. No wheezing. Gastrointestinal: Heartburn. No abdominal pain. No Indigestion. Acid Reflux. No Peptic Ulcer, no GI Stomach Bleed, and no Ulcers. Endocrine: No hot flashes, no muscle weakness, no Diabetes, no Hypothyroid, and no Hyperthyroid. Hematologic: No easy bleeding, no tendency for easy bruising, and no Anemia. Musculoskeletal: No Arthritis. Lower back pain. No soft tissue swelling. Pain localized to one or more joints. Neurological: Dizziness. No convulsions. Numbness. Psychological: Anxiety. No emotional lability, no depression, and no insomnia. Not crying for no reason. Skin: No dry skin. No Ulcers, no Scars, and no rash. Allergic and Immunologic: Complaint of seasonal allergic reaction. reviewed 09/10/2023 Physical Findings - Vitals taken 09/10/2023 09:[address] Height 70 in Weight 290 lbs Body Mass Index 41.6 kg/m2 Body Surface Area 2.4 m2 Standard Measurements: - Patient was overweight. General: Alert and Oriented ? 3 Focused Musculoskeletal Exam of the Spine: No focal tenderness in the cervical, thoracic, or lumbar spine Motor EF WE T FF HI Right 5/5 5/5 5/5 5/5 5/5 Left 5/5 5/5 5/5 5/5 5/5 Sensation C5 C6 C7 C8 T1 Right 2 2 2 2 2 Left 2 2 2 2 2 Biceps is 3+ on the right side, 2+ on the left Brachioradialis reflex is 2+ bilaterally Triceps reflex is 3+ bilaterally Weakly positive Lanier's bilaterally, similar to prior exams x3 Patient is able to ambulate in the room without assistive device Symmetric, palpable radial pulses bilaterally Interestingly, there may be a very subtle resting tremor in his bilateral hands that is more pronounced today than during previous exams User Defined 5 This is a 47-year-old man with mild cervical myelopathy and perhaps a gentle resting tremor in the bilateral hands It was very nice seeing Eduardo back in the office. Since we have now seen him 3 times with very mild progression of his myelopathy symptoms and certainly no changes on his physical exam other than potentially a mild resting tremor I think it is appropriate for him to follow-up with me in 1 year at which time we will again need AP, lateral, flexion, and extension views of the neck. If anything is changed we will likely repeat an MRI scan as well. And I also told him to keep an eye on symptoms such as worsening balance, worsening fine motor control in the hands, or even worsening neck pain in which case he is to call and get in to see sooner. Assessment - Overweight Previous Tests Laboratory Studies: Neuro-Electrical Functions: EMG 12/19/2021 BUE @ [facility] 04/24/2022 BUE @ [facility]. Imaging: X-Ray: An X-ray was performed 09/25/2022 Neck @ [facility]. MRI Scan: An MRI was performed 10/30/2022 Domingo @ [facility]. Counseling/Education - Lose weight Practice Management Use of tobacco assessment performed Review of medications documented; No influenza immunization patient refused. Care Team - Nohelia Alex PA-C Notes This dictation was done with voice recognition software and may contain errors and omissions.
--- OUTSIDE RECORDS SUMMARY | 2024-03-18 07:02 | XMS_ITS | Clinical Summary ---
Author Name Unknown Address [address] [place] [address] [place] [address] Phone Organization [facility] , [facility] Address [address] [place] [address] Phone Care Team Providers Care Sign Shop Supervisor Name Role Phone Rosario BACA, Kevin Wallis Unavailable [phone] Nohelia Alex PA-C Primary Care Provider [phone] Reason for Visit and Chief Complaint The Chief Complaint is: Cervical pain Problems Includes: Problems addressed during this encounter and other active Problems All Visits Onset Date Resolved Date Provider Condition S tatus Neck Pain 10/23/2022 Tim Kohler MD Active Last Documented On 2 10:11AM ; [facility], [facility] Joint Pain in the Left Knee 12/04/2017 Chandler Al MD Active Last Documented On 8 3:07PM ; [facility], [facility] Plan of Treatment Pending Tests Order Diagnosis Results Due Ordering P rovider Radiology - MRI MRI Cervical Spine 11/06/22 Alma Kohler MD Last Documented On 2 11:31AM ; [facility], [facility] Radiology - MRI MRI Thoracic Spine Radiculopathy, cervical region 02/25/24 Tim Kohler MD Last Documented On 4 8:45AM ; [facility], [facility] Radiology - MRI MRI Cervical Spine Cervicalgia 02/25/24 Tim Kohler MD Last Documented On 4 8:45AM ; [facility], [facility] Future Appointments Date Time Location Provi nova Follow Up 04/07/2024 8:45AM [facility] [place] MD Last Documented On 4 10:22AM ; [facility], [facility] Instructions to patient Lose weight Last Documented On 4 1:40PM ; [facility] Assessments Includes: Assessments from this encounter Findings - Overweight - Last Documented On 02/12/2024 8:45AM ; [facility], [facility] Instructions Includes: Instructions from this encounter Instructions to patient Lose weight Last Documented On 4 1:40PM ; [facility], [facility] Medical Equipment - Implanted Devices Includes: Current Devices No Medical Equipment Recorded Medications Includes: Medications discussed during this encounter and other current Medications Current Medications (continue as prescribed) Adult Aspirin Regimen 81 MG Oral Tablet Delayed Releas e 09/10/2023 Provider: Diagnosis: Last Documented On 3 8:59AM By Sandrine Kerr ; [facility] EQL [place] 3 Fish Oil 1000 MG Oral Capsule 09/10/2023 Provider: Diagnosis: Last Documented On 3 9:00AM By Sandrine Kerr ; [facility] Atorvastatin Calcium 10 MG Oral Tablet 11/13/2022 Pr ovider: Diagnosis: Last Documented On 3 9:18AM By Kadie Boyd ; [facility], [facility] Famotidine 40 MG Oral Tablet 11/12/2022 Provider: Diagnosis: Last Documented On 3 9:18AM By Kadie Boyd ; [facility] Metoprolol Succinate ER 25 M G Oral Tablet Extended Release 24 Hour 11/05/2022 Provider: Diagnosis: Last Documented On 3 9:18AM By Kadie Boyd ; [facility] Past Medications on file Omeprazole 40 MG Oral Capsule Delayed Release 09/10/20 23 - 12/09/2023 Provider: Diagnosis: Last Documented On 3 9:06AM By Tim Kohler ; [facility], [facility] Vitamin D (Ergocalciferol) 1 .25 MG (45409 UT) Oral Capsule 09/10/2023 - 10/15/2023 Provider: Diagnosis: Last Documented On 3 9:07AM By Tim Kohler ; [facility], [facility] Keflex 500MG Oral Capsule 10/04/2018 - 10/11/2018 Prov ider: Steve Romero MD Diagnosis: three times a day Last Documented On 8 9:52AM By Lilian Mcaculey ; [facility] Rumsey 7.5-325MG Oral Tablet 09/19/2018 - 09/29/2018 Pr ovider: Steve Romero MD Diagnosis: 1 tab every 6 hrs prn pain 1 tablet every 6 hours for pain, post op Last Documented On 8 11:08AM By Gaviota Ray ; [facility] Medications Administered Includes: Administered Medications from this encounter No Administered Medications Recorded Vital Signs Includes: Vital Signs from this encounter Vital Name 02/11/2024 01:40P Height (in) 70 Weight (lb) 290 Body Mass Index 41.6 Body Surface Area 2.4 Note: HL Last Documented: On 02/11/2024 1:40PM ; [facility] Results Includes: Results discussed during this encounter No Results Recorded For Specified Dates History of Present Illness Includes: History of Present Illness from this encounter JENNIFER JARVIS is a 48 year old male. - Allergy list reviewed - Problem list reviewed - Medication list reviewed - Previous history of new onset pain Injury is not work related or an automotive accident - Patient pain level from 1-10: 2 -2 - Yes, previous treatment. with Dr. Rodriguez - History of Physical Therapy @ [facility] starting 10/26/2022-currently Medications used for this condition: This is a very pleasant 48-year-old man who is well known to me at this point. He is following up for a myelopathy check up. He continues to report pain that radiates out of his neck and into his left arm. He also describes pain in the middle of his thoracic spine. He also describes some pain that feels as though it Bores through his abdomen and in his back. He is following with a weekend anchor to discuss whether or not there is any concern for abdominal aortic aneurysm. Social History Description Last Updated Caffeine use 11/13/2022 Last Documented On 4 1:40PM ; [facility] No recent change in diet 11/13/2022 Last Documented On 4 1:40PM ; [facility] Not a current smoker. 11/13/2022 Last Documented On 4 1:40PM ; [facility] Not exercising regularly 11/13/2022 Last Documented On 4 1:40PM ; [facility] Not using alcohol 11/13/2022 Last Documented On 4 1:40PM ; [facility] Not using drugs 11/13/2022 Last Documented On 4 1:40PM ; [facility] Tobacco non-user 11/13/2022 Last Documented On 4 1:40PM ; [facility] Smoking Status Unknown Procedures and Surgical History Includes: Procedures from this encounter Procedures Code Diagnosis Performing Provider Service L ocation Service Date use of tobacco assessment performed 1000F Last Documented On 4 1:40PM ; [facility] no influenza immunization patient refuse d Last Documented On 4 1:40PM ; [facility] review of medications documented 1160F Last Documented On 4 1:40PM ; [facility] EMG was performed 12/19/2021 [facility] @ [facility] ~04/24/20 [facility] @ [facility] [id number] Last Documented On 4 1:40PM ; [facility] an X-ray was performed 09/25/2022 Neck @ [facility] ~ [place]ck @ [facility] [id number] Last Documented On 4 8:44AM ; [facility] an MRI was performed 10/30/2022 [facility]Spine @ [facility] [id number] Last Documented On 4 1:40PM ; [facility] Surgical History Last Updated History of total knee arthroplasty ACL&M eniscus repair 10/23/2022 Last Documented On 4 1:40PM ; [facility] Medical History Includes: Medical History addressed during this encounter Description Last Updated 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 Last Documented On 4 8:45AM ; [facility] History of Heartburn / Acid Reflux 11/13 Last Documented On 4 1:40PM ; [facility] History of Sleep Apnea 11/13/2022 Last Documented On 4 1:40PM ; [facility] No recent immunization for flu 3 Last Documented On 4 1:40PM ; [facility] No recent immunization for pneumococcal pneumonia 11/13/2022 Last Documented On 4 1:40PM ; [facility] Past Surgical History: slipp ed femoral epiphysis, wisom teeth, varicose veins 11/13/2022 Last Documented On 4 1:40PM ; [facility] Family History Includes: Family History addressed during this encounter Description Last Updated Family history of heart disease 11/13/19 Last Documented On 4 1:40PM ; [facility] Family history of diabetes mellitus 05/05 Last Documented On 4 1:40PM ; [facility] Family history of hypertension 9 Last Documented On 4 1:40PM ; [facility] Family history of rheumatoid arthritis 0 05/15/2019 Last Documented On 4 1:40PM ; [facility] Review of Systems Includes: Review of Systems [...] and Immunologic: Complaint of seasonal allergic reaction. Mental Status Includes: Mental Status from this encounter Description Anxiety Functional Status Includes: Functional Status from this encounter No Functional Status Recorded Physical Exam Includes: Physical Exam from this encounter Allergies Includes: Active Allergies No Known Allergies Encounters Encounter Provider Location Date Check-In Time Check-Out Time Diagnosis Follow Up Tim garcia MD [facility] 4 1:33PM 1:55PM Overweight Insurance Includes: Active Insurance Policies Plan Name Member ID Group # Subscriber Relationship Effect hay Dates 1 - [employer] [facility] [id number] VAN JARVIS Self 1 - Unknown Clinical Notes Includes: Clinical Notes from this encounter * Progress note Date Encounter Last Documented by 02/11/2024 Follow Up Last documented on 02/12/2024; 8:45 AM, Tim Ayala MD; [facility], [facility] Active Problems & Conditions - Joint Pain in the Left Knee - Neck Pain Chief Complaint The Chief Complaint is: Cervical pain. Referred Here Referred by R- Curt Pacheco PA-C. History of Present Illness VAN JARVIS is a 48 year old male. - Allergy list reviewed - Problem list reviewed - Medication list reviewed - Previous history of new onset pain Injury is not work related or an automotive accident - Patient pain level from 1-10: 2 -2 - Yes, previous treatment. with Dr. Rodriguez - History of Physical Therapy @ [facility] starting 10/26/2022-currently Medications used for this condition: This is a very pleasant 48-year-old man who is well known to me at this point. He is following up for a myelopathy check up. He continues to report pain that radiates out of his neck and into his left arm. He also describes pain in the middle of his thoracic spine. He also describes some pain that feels as though it Bores through his abdomen and in his back. He is following with a weekend anchor to discuss whether or not there is any concern for abdominal aortic aneurysm. Current Medication - Adult Aspirin Regimen 81 MG Oral Tablet Delayed Release take as directed 0 days, 0 refills - Atorvastatin Calcium 10 MG Oral Tablet 90 days, 0 refills - EQL [place] 3 Fish Oil 1000 MG Oral Capsule take as directed 0 days, 0 refills - Famotidine 40 MG Oral Tablet 90 days, 0 refills - Metoprolol Succinate ER 25 MG Oral Tablet Extended Release 24 Hour 30 days, 0 refills Past Medical/Surgical History Reported: Immunization History: No recent immunization for flu and not for pneumococcal pneumonia. Diagnoses: Sleep Apnea Heartburn / Acid Reflux Slipped femoral epiphysis. Surgical: - Past Surgical History: slipped femoral epiphysis, wisom teeth, varicose veins - Total knee arthroplasty ACL&Meniscus repair [...] and Immunologic: Complaint of seasonal allergic reaction. Physical Findings - Vitals taken 02/11/2024 01:40 pm HL Height 70 in Weight 290 lbs Body [...] exams User Defined 5 This is a 48-year-old with left cervical myeloradiculopathy as well as concern for potential abdominal aortic aneurysm. It was really nice seeing Eduardo quiroga. I told him that I would make sure his weekend anchor as investigating him for an aneurysm in his abdominal aorta and he told me that he recently had an MRA in his following up with cardiology soon. I am going to recommend we repeat an MRI of his neck because it has been almost 2 years. We will also MRIs thoracic spine to see if there is any cause for the pain he describes coming from the thoracic spine itself. Assessment - Overweight Previous Tests Laboratory Studies: Neuro-Electrical Functions: EMG 12/19/2021 [facility] @ [facility] 04/24/2022 [facility] @ [facility]. Imaging: X-Ray: An X-ray was performed 09/25/2022 Neck @ [facility] 03/12/2023 Neck @ [facility]. MRI Scan: An MRI was performed 10/30/2022 [facility] @ [facility]. Counseling/Education - Lose weight Plan StartCited - Cervicalgia Radiology/MRI: MRI Cervical Spine EndCited StartCited - Radiculopathy, cervical region Radiology/MRI: MRI Thoracic Spine EndCited Practice Management Use of tobacco assessment performed Review of medications documented; No influenza immunization patient refused. Care Team - Nohelia Alex PA-C Notes This dictation was done with voice recognition software and may contain errors and omissions.
--- OUTSIDE RECORDS SUMMARY | 2024-03-18 07:02 | XMS_ITS | Clinical Summary ---
Author Name Unknown Address [address] [place] [address] [place] [address] Phone Organization [facility] Address [address] [place] [address] Phone Care Team Providers Care Tapper Supervisor Name Role Phone Rosario BACA, Kevin Wallis Unavailable [phone] Nohelia Alex PA-C Primary Care Provider [phone] Reason for Visit and Chief Complaint The Chief Complaint is: Cervical pain Problems Includes: Problems addressed during this encounter and other active Problems All Visits Onset Date Resolved Date Provider Condition S tatus Neck Pain 10/23/2022 Tim Kohler MD Active Last Documented On 2 10:11AM ; [facility], [facility] Joint Pain in the Left Knee 12/04/2017 Chandler Al MD Active Last Documented On 8 3:07PM ; [facility], [facility] Plan of Treatment Pending Tests Order Diagnosis Results Due Ordering P rovider Radiology - MRI MRI Cervical Spine 11/06/22 Amla Kohler MD Last Documented On 2 11:31AM ; [facility] Radiology - MRI MRI Thoracic Spine Radiculopathy, cervical region 02/25/24 Tim Kohler MD Last Documented On 4 8:45AM ; [facility] Radiology - MRI MRI Cervical Spine Cervicalgia 02/25/24 Tim Kohler MD Last Documented On 4 8:45AM ; [facility] Future Appointments Date Time Location Provi nova Follow Up 04/07/2024 8:45AM [facility] Last Documented On 4 10:22AM ; [facility] Instructions to patient Lose weight Last Documented On 3 12:45PM ; [facility] Assessments Includes: Assessments from this encounter Findings This is a 47-year-old man with mild physical exam findings for cervical myelopathy that have not progressed - Last Documented On 03/12/2023 2:09PM ; [facility] It was nice seeing Eduardo quiroga in the office today. At this time, I think it is very appropriate to have him follow-up with me in 6 months for repeat myelopathy check. I think he is safe to proceed with foot surgery in the meantime. He can call me between now and 6 months from now if new issues arise. - Last Documented On 03/12/2023 2:09PM ; [facility], [facility] Instructions Includes: Instructions from this encounter Instructions to patient Lose weight Last Documented On 3 12:45PM ; [facility], [facility] Medical Equipment - Implanted Devices Includes: Current Devices No Medical Equipment Recorded Medications Includes: Medications discussed during this encounter and other current Medications Current Medications (continue as prescribed) Adult Aspirin Regimen 81 MG Oral Tablet Delayed Releas e 09/10/2023 Provider: Diagnosis: Last Documented On 3 8:59AM By Sandrine [facility], [facility] EQL [place] 3 Fish Oil 1000 MG Oral Capsule 09/10/2023 Provider: Diagnosis: Last Documented On 3 9:00AM By Sandrine [facility], [facility] Atorvastatin Calcium 10 MG Oral Tablet 11/13/2022 Pr ovider: Diagnosis: Last Documented On 3 9:18AM By Kadie [facility], [facility] Famotidine 40 MG Oral Tablet 11/12/2022 Provider: Diagnosis: Last Documented On 3 9:18AM By [facility] Metoprolol Succinate ER 25 M G Oral Tablet Extended Release 24 Hour 11/05/2022 Provider: Diagnosis: Last Documented On 3 9:18AM By Kadie [facility], [facility] Past Medications on file Omeprazole 40 MG Oral Capsule Delayed Release 09/10/20 23 - 12/09/2023 Provider: Diagnosis: Last Documented On 3 9:06AM By Tim Kohler ; [facility], [facility] Vitamin D (Ergocalciferol) 1 .25 MG (09465 UT) Oral Capsule 09/10/2023 - 10/15/2023 Provider: Diagnosis: Last Documented On 3 9:07AM By Tim Kohler ; [facility], [facility] Keflex 500MG Oral Capsule 10/04/2018 - 10/11/2018 Prov ider: Steve Romero MD Diagnosis: three times a day Last Documented On 8 9:52AM By Lilian Mccauley ; [facility] [place] 7.5-325MG Oral Tablet 09/19/2018 - 09/29/2018 Pr ovider: Steve Romero MD Diagnosis: 1 tab every 6 hrs prn pain 1 tablet every 6 hours for pain, post op Last Documented On 8 11:08AM By Gaviota Ray ; [facility] Medications Administered Includes: Administered Medications from this encounter No Administered Medications Recorded Vital Signs Includes: Vital Signs from this encounter Vital Name 03/12/2023 12:50P Height (in) 70 Weight (lb) 280 Body Mass Index 40.2 Body Surface Area 2.4 Note: bb Last Documented: On 03/12/2023 12:51P M ; [facility], [facility] Results Includes: Results discussed during this encounter [...] accident - Patient pain level from 1-10: 3 -2 - Yes, previous treatment. with Dr. Rodriguez - History of Physical Therapy @ [facility] starting 10/26/2022-currently Medications used for this condition: Eduardo is a very pleasant 47-year-old man following up with me early for a myelopathy check. He informs me that 2 weeks ago he followed up with his primary care physician and shortly thereafter started develop some new symptoms and we wanted to double check to make sure these were not related to his cervical spine. He also informs a scheduled for a left foot surgery with Dr. Boswell at [facility] in the near future. Today, he informs me of some sensation of head fullness as well as some odd pain around his left eye that he describes almost like an eye twitch or diffuse eye muscle relaxation. Denies any new changes to his balance or difficulty with fine motor control in his hands. Social History Description Last Updated Caffeine use 11/13/2022 Last Documented On 3 12:45PM ; [facility], [facility] No recent change in diet 11/13/2022 Last Documented On 3 12:45PM ; [facility] Not a current smoker. 11/13/2022 Last Documented On 3 12:45PM ; [facility] Not exercising regularly 11/13/2022 Last Documented On 3 12:45PM ; [facility] Not using alcohol 11/13/2022 Last Documented On 3 12:45PM ; [facility] Not using drugs 11/13/2022 Last Documented On 3 12:45PM ; [facility] Tobacco non-user 11/13/2022 Last Documented On 3 12:45PM ; [facility] Smoking Status Unknown Procedures and Surgical History Includes: Procedures from this encounter Procedures Code Diagnosis Performing Provider Service L ocation Service Date use of tobacco assessment performed 1000F Last Documented On 3 12:45PM ; [facility] no influenza immunization patient refuse d Last Documented On 3 12:45PM ; [facility] EMG was performed 12/19/2021 BUE @ [facility] ~04/24/20 BUE @ [facility] [id number] Last Documented On 3 12:45PM ; [facility] an X-ray was performed 09/25/2022 Neck @ [facility] [id number] Last Documented On 3 12:45PM ; [facility] an MRI was performed 10/30/2022 CSpine @ [facility] [id number] Last Documented On 3 12:45PM ; [facility] Surgical History Last Updated History of total knee arthroplasty ACL&M eniscus repair 10/23/2022 Last Documented On 3 12:45PM ; [facility] Medical History Includes: Medical History addressed during this encounter Description Last Updated slipped femoral epiphysis ~ACL&Meniscus repair ~Hearburn/Acid reflux 02/11/2024 Last Documented On 3 12:45PM ; [facility] History of Heartburn / Acid Reflux 11/13 Last Documented On 3 12:45PM ; [facility] History of Sleep Apnea 11/13/2022 Last Documented On 3 12:45PM ; [facility] No recent immunization for flu 3 Last Documented On 3 12:45PM ; [facility] No recent immunization for pneumococcal pneumonia 11/13/2022 Last Documented On 3 12:45PM ; [facility] Past Surgical History: Slipp ed femoral epiphysis ~Wisom teeth ~Varicose veins 11/13/2022 Last Documented On 3 12:45PM ; [facility] Family History Includes: Family History addressed during this encounter Description Last Updated Family history of heart disease 11/13/19 23 Last Documented On 3 12:45PM ; [facility] Family history of diabetes mellitus 05/05 Last Documented On 3 12:45PM ; [facility] Family history of hypertension 9 Last Documented On 3 12:45PM ; [facility] Family history of rheumatoid arthritis 0 05/15/2019 Last Documented On 3 12:45PM ; [facility] Review of Systems Includes: Review of Systems from this encounter Systemic: Not feeling tired, no recent weight loss, and no recent weight gain. Head: No headache and no sinus pain. Eyes: No vision problems, no Cataracts, [...] easy bruising, and no Anemia. Musculoskeletal: No Arthritis and no lower back pain. No soft tissue swelling and no localized joint pain. Neurological: No dizziness, no convulsions, and no numbness. Psychological: No anxiety, no emotional lability, no depression, and no insomnia. Not crying for no reason. Skin: No dry skin. No Ulcers, no Scars, and no rash. Allergic and Immunologic: No complaint of seasonal allergic reaction. reviewed 03/12/2023 Mental Status Includes: Mental Status from this encounter Description No anxiety Functional Status Includes: Functional Status from this encounter No Functional Status Recorded Physical Exam Includes: Physical Exam from this encounter Allergies Includes: Active Allergies No Known Allergies Encounters Encounter Provider Location Date Check-In Time Check- Out Time Diagnosis Follow Up Tim garcia MD [facility] 3 12:41PM 1:23PM Insurance Includes: Active Insurance Policies Plan Name Member ID Group # Subscriber Relationship Effect hay Dates 1 - [employer] [facility] [id number] [place] Self 1 - Unknown Clinical Notes Includes: Clinical Notes from this encounter * Progress note Date Encounter Last Documented by 03/12/2023 Follow Up Last documented on 03/12/2023; 2:09 PM, Tim Ayala MD; [facility] Active Problems & Conditions - Joint [...] accident - Patient pain level from 1-10: 3 -2 - Yes, previous treatment. with Dr. Rodriguez - History of Physical Therapy @ [facility] starting 10/26/2022-currently Medications used for this condition: Eduardo is a very pleasant 47-year-old man following up with me early for a myelopathy check. He informs me that 2 weeks ago he followed up with his primary care physician and shortly thereafter started develop some new symptoms and we wanted to double check to make sure these were not related to his cervical spine. He also informs a scheduled for a left foot surgery with Dr. Boswell at [facility] in the near future. Today, he informs me of some sensation of head fullness as well as some odd pain around his left eye that he describes almost like an eye twitch or diffuse eye muscle relaxation. Denies any new changes to his balance or difficulty with fine motor control in his hands. Current Medication - Atorvastatin Calcium 10 MG Oral Tablet 90 days, 0 refills - Famotidine 40 MG Oral Tablet 90 days, 0 refills - Metoprolol Succinate ER 25 MG Oral Tablet Extended Release 24 Hour 30 days, 0 refills - Omeprazole 40 MG Oral Capsule Delayed Release 90 days, 0 refills - Vitamin D (Ergocalciferol) 1.25 MG (22631 UT) Oral Capsule take as directed 35 days, 0 refills Past Medical/Surgical History Reported: Immunization History: No recent immunization for flu and not for pneumococcal pneumonia. Diagnoses: Sleep Apnea Heartburn / Acid Reflux Slipped femoral epiphysis ACL&Meniscus repair Hearburn/Acid reflux. Surgical: - Past Surgical History: [...] arthritis Review Of Systems Systemic: Not feeling tired, no recent weight loss, and no recent weight gain. Head: No headache and no sinus pain. Eyes: No vision problems, no Cataracts, [...] easy bruising, and no Anemia. Musculoskeletal: No Arthritis and no lower back pain. No soft tissue swelling and no localized joint pain. Neurological: No dizziness, no convulsions, and no numbness. Psychological: No anxiety, no emotional lability, no depression, and no insomnia. Not crying for no reason. Skin: No dry skin. No Ulcers, no Scars, and no rash. Allergic and Immunologic: No complaint of seasonal allergic reaction. reviewed 03/12/2023 Physical Findings - Vitals taken 03/12/2023 12:50 pm bb Height 70 in Weight 280 lbs Body Mass Index 40.2 kg/m2 Body Surface Area 2.4 m2 Standard [...] reflex is 2+ bilaterally Triceps reflex is 2+ bilaterally Weakly positive Lanier's bilaterally, similar to prior exams x2 Patient is able to ambulate in the room without assistive device Symmetric, palpable radial pulses bilaterally Tests Cervical Spine X-ray Ap, Lateral, Flexion, and Extension views of the Cervical Spine were reviewed in the office today There is no significant interval change from his prior cervical spine x-rays User Defined 5 This is a 47-year-old man with mild physical exam findings for cervical myelopathy that have not progressed It was nice seeing Eduardo junaid in the office today. At this time, I think it is very appropriate to have him follow-up with me in 6 months for repeat myelopathy check. I think he is safe to proceed with foot surgery in the meantime. He can call me between now and 6 months from now if new issues arise. Previous Tests Laboratory Studies: Neuro-Electrical Functions: EMG 12/19/2021 APPLE @ [facility] 04/24/2022 BUE @ [facility]. Imaging: X-Ray: An X-ray was performed 09/25/2022 Neck @ [facility] MRI Scan: [facility]. Counseling/Education - Lose weight Practice Management Use of tobacco assessment performed; No influenza immunization patient refused. Care Team - Nohelia Alex PA-C Notes This dictation was done with voice recognition software and may contain errors and omissions.
--- OUTSIDE RECORDS SUMMARY | 2024-03-18 07:02 | XMS_ITS ---
Author Name Unknown Address [address] [place] [address] [place] [address] Phone Organization [facility] Address [address] [place] [address] Phone Care Team Providers Care Mortar Worker Name Role Phone Rosario BACA, Kevin Wallis Unavailable [phone] Nohelia Alex PA-C Primary Care Provider [phone] Reason for Referral Date Encounter Description Provider Reason for Referral 10/16/22 NEW PROBLEM/EST PT Curt Pacheco PA-C Referral To Physician 09/25/22 Non Physician Specified Curt Pacheco PA-C Referral To Physician Problems Includes: Active, inactive, and resolved Problems All Visits Onset Date Resolved Date Provider Condition S tatus Neck Pain 10/23/2022 Tim Kohler MD Active Last Documented On 2 10:11AM ; [facility] Joint Pain in the Left Knee 12/04/2017 Chandler Al MD Active Last Documented On 8 3:07PM ; [facility] Plan of Treatment Pending Tests Order Diagnosis Results Due Ordering P rovider Radiology - MRI MRI Cervical Spine 11/06/22 Alma Kohler MD Last Documented On 2 11:31AM ; [facility] Radiology - MRI MRI Thoracic Spine Radiculopathy, cervical region 02/25/24 Tim Kohler MD Last Documented On 4 8:45AM ; [facility], [facility] Radiology - MRI MRI Cervical Spine Cervicalgia 02/25/24 Tim Kohler MD Last Documented On 4 8:45AM ; [facility] Future Appointments Date Time Location Provi nova Follow Up 04/07/2024 8:45AM [facility] ALEJANDRA Kohler MD Last Documented On 4 10:22AM ; [facility] Instructions to patient Lose weight Last Documented On 4 1:40PM ; [facility] Lose weight Last Documented On 3 9:00AM ; [facility] Lose weight Last Documented On 3 12:45PM ; [facility] Lose weight Last Documented On 3 9:16AM ; [facility] Lose weight Last Documented On 3 10:46AM ; [facility] Lose weight Last Documented On 3 9:15AM ; [facility] Lose weight Last Documented On 3 9:03AM ; [facility] Lose weight Last Documented On 2 10:10AM ; [facility] Lose weight Last Documented On 2 9:50AM ; [facility] Lose weight Last Documented On 2 1:30PM ; [facility] Instructions for patient see pcp for bp Last Documented On 9 2:51PM ; [facility] Instructions for patient see pcp for bp Last Documented On 9 1:20PM ; [facility] Instructions for patient see pcp for bp Last Documented On 9 1:28PM ; [facility] Instructions for patient see pcp for bp Last Documented On 9 10:36AM ; [facility] Instructions for patient see pcp for bp Last Documented On 9 9:59AM ; [facility] Instructions for patient see pcp for bp Last Documented On 9 8:57AM ; [facility] Instructions for patient see pcp for bp Last Documented On 9 8:59AM ; [facility] No intervention and counseli ng on cessation of tobacco use Last Documented On 9 9:00AM ; [facility] Instructions for patient Pat ient to see PCP for BP Last Documented On 8 3:09PM ; [facility] Lose weight Last Documented On 8 3:09PM ; [facility] Education and Decision Aids were provided during visit for: No health seminar on smoking cessation Last Documented On 9 9:00AM ; [facility] Assessments Includes: Assessments for all patient encounters Findings Encounter Date Overweight Follow Up with Tim Ayala MD 02/11/2024 Last Documented On 4 8:45AM ; [facility] Overweight Follow Up with Tim Ayala MD 09/10/2023 Last Documented On 3 11:37AM ; [facility] Instructions Includes: Instructions for all patient encounters Instructions to patient Lose weight Last Documented On 4 1:40PM ; [facility] Lose weight Last Documented On 3 9:00AM ; [facility] Lose weight Last Documented On 3 12:45PM ; [facility] Lose weight Last Documented On 3 9:16AM ; [facility] Lose weight Last Documented On 3 10:46AM ; [facility] Lose weight Last Documented On 3 9:15AM ; [facility] Lose weight Last Documented On 3 9:03AM ; [facility] Lose weight Last Documented On 2 10:10AM ; [facility] Lose weight Last Documented On 2 9:50AM ; [facility] Lose weight Last Documented On 2 1:30PM ; [facility] Instructions for patient see pcp for bp Last Documented On 9 2:51PM ; [facility] Instructions for patient see pcp for bp Last Documented On 9 1:20PM ; [facility] Instructions for patient see pcp for bp Last Documented On 9 1:28PM ; [facility] Instructions for patient see pcp for bp Last Documented On 9 10:36AM ; [facility] Instructions for patient see pcp for bp Last Documented On 9 9:59AM ; [facility] Instructions for patient see pcp for bp Last Documented On 9 8:57AM ; [facility] Instructions for patient see pcp for bp Last Documented On 9 8:59AM ; [facility] No intervention and counseli ng on cessation of tobacco use Last Documented On 9 9:00AM ; [facility] Instructions for patient Pat ient to see PCP for BP Last Documented On 8 3:09PM ; [facility] Lose weight Last Documented On 8 3:09PM ; [facility] Education and Decision Aids were provided during visit for: No health seminar on smoking cessation Last Documented On 9 9:00AM ; [facility] Medical Equipment - Implanted Devices Includes: Current and historical Devices No Medical Equipment Recorded Medications Includes: Current and historical Medications Current Medications (continue as prescribed) Adult Aspirin Regimen 81 MG Oral Tablet Delayed Releas e 09/10/2023 Provider: Diagnosis: Last Documented On 3 8:59AM By Sandrine Kerr ; [facility] EQL [place] 3 Fish Oil 1000 MG Oral Capsule 09/10/2023 Provider: Diagnosis: Last Documented On 3 9:00AM By Sandrine [facility] Atorvastatin Calcium 10 MG Oral Tablet 11/13/2022 Pr ovider: Diagnosis: Last Documented On 3 9:18AM By Kadie [facility] Famotidine 40 MG Oral Tablet 11/12/2022 Provider: Diagnosis: Last Documented On 3 9:18AM By Kadie Boyd ; [facility], [facility] Metoprolol Succinate ER 25 M G Oral Tablet Extended Release 24 Hour 11/05/2022 Provider: Diagnosis: Last Documented On 3 9:18AM By Kadie [facility], [facility] Past Medications on file Omeprazole 40 MG Oral Capsule Delayed Release 09/10/20 23 - 12/09/2023 Provider: Diagnosis: Last Documented On 3 9:06AM By Tim Kohler ; [facility], [facility] Vitamin D (Ergocalciferol) 1 .25 MG (08525 UT) Oral Capsule 09/10/2023 - 10/15/2023 Provider: Diagnosis: Last Documented On 3 9:07AM By Tim Kohler ; [facility], [facility] Vitamin D (Ergocalciferol) 1 .25 MG (42659 UT) Oral Capsule 09/15/2022 - 10/15/2022 Provider: Diagnosis: Last Documented On 3 9:07AM By Tim Kohler ; [facility], [facility] Omeprazole 40 MG Oral Capsule Delayed Release 09/03/20 22 - 12/04/2022 Provider: Diagnosis: Last Documented On 3 9:07AM By Tim Kohler ; [facility], [facility] Keflex 500MG Oral Capsule 10/04/2018 - 10/11/2018 Prov ider: Steve Romero MD Diagnosis: three times a day Last Documented On 8 9:52AM By Lilian Mccauley ; [facility], [facility] [place] 7.5-325MG Oral Tablet 09/19/2018 - 09/29/2018 Pr ovider: Steve Romero MD Diagnosis: 1 tab every 6 hrs prn pain 1 tablet every 6 hours for pain, post op Last Documented On 8 11:08AM By Gaviota Ray ; [facility], [facility] Medications Administered Includes: Administered Medications in patient's chart No Administered Medications Recorded Vital Signs Includes: Vital Signs from 03/18/2023 through 03/18/2024 Vital Name 02/11/2024 01:40P 09/10/2023 09: 05A Height (in) 70 70 Weight (lb) 290 290 Body Mass Index 41.6 41.6 Body Surface Area 2.4 2.4 Note: HL ct Last Documented: On 02/11/2024 1:40PM ; [facility] On 09/10/2023 9:05AM ; [facility], [facility] Results Includes: Results from 03/18/2023 through 03/18/2024 No Results Recorded For Specified Dates History of Present Illness History of Present Illness not supported for this document type No History of Present Illness Recorded Social History Description Last Updated Caffeine use 11/13/2022 Last Documented On 4 8:16AM ; [facility] No recent change in diet 11/13/2022 Last Documented On 4 8:16AM ; [facility], [facility] Not a current smoker. 11/13/2022 Last Documented On 4 8:16AM ; [facility], [facility] Not exercising regularly 11/13/2022 Last Documented On 4 8:16AM ; [facility] Not using alcohol 11/13/2022 Last Documented On 4 8:16AM ; [facility] Not using drugs 11/13/2022 Last Documented On 4 8:16AM ; [facility] Tobacco non-user 11/13/2022 Last Documented On 4 8:16AM ; [facility] No tobacco use 12/04/2017 Last Documented On 8 2:46PM ; [facility] Smoking status : Never smoker 12/04/2017 Last Documented On 8 2:46PM ; [facility] No recent change in diet 12/04/2017 Last Documented On 8 2:46PM ; [facility] Not a current smoker 12/04/2017 Last Documented On 8 2:46PM ; [facility] Procedures and Surgical History Surgical History Last Updated History of total knee arthroplasty ACL&M eniscus repair 10/23/2022 Last Documented On 2 11:31AM ; [facility] Medical History Includes: Medical History in patient's chart Description Last Updated 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 Last Documented On 4 8:45AM ; [facility] History of Heartburn / Acid Reflux 11/13 Last Documented On 4 8:16AM ; [facility] History of Sleep Apnea 11/13/2022 Last Documented On 4 8:16AM ; [facility] No recent immunization for flu 3 Last Documented On 4 8:16AM ; [facility] No recent immunization for pneumococcal pneumonia 11/13/2022 Last Documented On 4 8:16AM ; [facility] Past Surgical History: slipp ed femoral epiphysis, wisom teeth, varicose veins 11/13/2022 Last Documented On 4 8:16AM ; [facility] Family History Includes: Family History in patient's chart Description Last Updated Family history of heart disease 11/13/19 23 Last Documented On 4 8:16AM ; [facility] Family history of diabetes mellitus 05/05 Last Documented On 0 1:36PM ; [facility] Family history of hypertension 9 Last Documented On 0 1:36PM ; [facility] Family history of rheumatoid arthritis 0 05/15/2019 Last Documented On 0 1:36PM ; [facility] No significant family history 12/04/2017 Last Documented On 8 2:46PM ; [facility] Review of Systems Review of Systems not supported for this document type No Review of Systems Recorded Mental Status Description Anxiety Functional Status No Functional Status Recorded Physical Exam Physical Exam not supported for this document type No Physical Exam Recorded Immunizations Includes: Immunizations in patient's chart Vaccine Dose # Date Site Reaction(s) Status Source Influenza 1 09/25/2022 Complete (Refused - Patient objection) [facility] Last Documented On 2 1:15PM ; [facility] PCV (Pneumovax 23) 1 09/25/2022 Complete (Refused - Patient objection) [facility] Last Documented On 2 1:15PM ; [facility] Td 1 09/25/2022 Complete (Refused - Patient objection) [facility] Last Documented On 2 1:15PM ; [facility] Allergies Includes: Active, inactive, and resolved Allergies No Known Allergies Encounters Includes: Encounters from 03/18/2023 through 03/18/2024 Encounter Provider Location Date Check-In Time Check-Out Time Diagnosis Follow Up Tim garcia MD [facility] 4 1:33PM 1:55PM Overweight Follow Up Tim garcia MD [facility] 3 8:58AM 9:18AM Overweight Insurance Includes: Active Insurance Policies Plan Name Member ID Group # Subscriber Relationship Effect hay Dates 1 - [employer] [facility] [id number] VAN JARVIS Self 1 - Unknown Clinical Notes Includes: Signed Clinical Notes starting from 10/19/2022 * Progress note Date Encounter Last Documented by 02/11/2024 Follow Up Last documented on 02/12/2024; 8:45 AM, Tim Ayala MD; [facility], [facility] Active Problems & Conditions - Joint [...] Rodriguez - History of Physical Therapy @ [facility] starting 10/26/2022-currently Medications used for this [...] his back. He is following with a senior informatica etl developer to discuss whether or not there is any concern for abdominal aortic aneurysm. Current Medication - Adult Aspirin Regimen 81 MG Oral Tablet Delayed Release take as directed 0 days, 0 refills - Atorvastatin Calcium 10 MG Oral Tablet 90 days, 0 refills - EQL [place] 3 Fish Oil 1000 MG Oral Capsule [...] him that I would make sure his senior informatica etl developer as investigating him for an aneurysm in [...] Tests Laboratory Studies: Neuro-Electrical Functions: EMG 12/19/2021 [facility] @ [facility] 04/24/2022 [facility] @ [facility]. Imaging: X-Ray: An X-ray was performed 09/25/2022 Neck @ [facility] 03/12/2023 Neck @ [facility]. MRI Scan: An MRI was performed 10/30/2022 [facility] @ [facility]. Counseling/Education - Lose weight Plan StartCited - Cervicalgia Radiology/MRI: MRI Cervical Spine EndCited StartCited - Radiculopathy, cervical region Radiology/MRI: MRI Thoracic Spine EndCited Practice Management Use of tobacco assessment performed Review of medications documented; No influenza immunization patient refused. Care Team - Nohelia Alex PA-C Notes This dictation was done with voice recognition software and may contain errors and omissions. * Progress note Date Encounter Last Documented by 09/10/2023 Follow Up Last documented on 09/10/2023; 11:37 AM, Tim Ayala MD; [facility] Active Problems & Conditions - Joint [...] Rodriguez - History of Physical Therapy @ [facility] starting 10/26/2022-currently Medications used for this condition: This is a very pleasant 47-year-old man here for a 6-month myelopathy checkup. He denies any significant neck pain or any significant changes in his fine motor control in his hands or any significant changes in his balance. As a side note, he did undergo a fairly extensive left foot surgery with a guest relations agent at [facility]. Current Medication - Adult Aspirin Regimen 81 MG Oral Tablet Delayed Release take as directed 0 days, 0 refills - Atorvastatin Calcium 10 MG Oral Tablet 90 days, 0 refills - EQL [place] 3 Fish Oil 1000 MG Oral Capsule take as directed 0 days, 0 refills - Famotidine 40 MG Oral Tablet 90 days, 0 refills - Metoprolol Succinate ER 25 MG Oral Tablet Extended Release 24 Hour 30 days, 0 refills - Omeprazole 40 MG Oral Capsule Delayed Release 90 days, 0 refills - Vitamin D (Ergocalciferol) 1.25 MG (71883 UT) Oral Capsule take as directed 35 [...] Tests Laboratory Studies: Neuro-Electrical Functions: EMG 12/19/2021 [facility] @ [facility] 04/24/2022 [facility] @ [facility]. Imaging: X-Ray: An X-ray was performed 09/25/2022 Neck @ [facility]. MRI Scan: An MRI was performed 10/30/2022 [facility] @ [facility]. Counseling/Education - Lose weight Practice Management Use of tobacco assessment performed Review of medications documented; No influenza immunization patient refused. Care Team - Nohelia Alex PA-C Notes This dictation was done with voice recognition software and may contain errors and omissions.
--- NOTE | 2024-03-18 07:06 | CT_ITS ---
APPROVED REPORT [employer]: CLINICAL INDICATION Chest Pain TECHNIQUE Image Acquisition: A 128 slice MDCT scanner (Insticatora View) was used for data acquisition. A noncontrast coronary calcium scan was performed. A CT attenuation threshold of 130 Hounsfield units (HU) was used for the detection of calcium in contiguous voxels of 1 sq mm in area to be counted as individual lesions. Bolus tracking in the ascending aorta with a threshold of 180 HU was performed. Immediately afterwards, ECG synchronized cardiac CT was then performed from the cardiac base to apex using retrospective gating with ECG tube current modulation. A total of 85 mL of Isovue 370 mg/mL contrast medium was administered at 5 mL/sec followed by a saline flush using a biphasic injection protocol. A tube voltage of 120 KVp was used. The patient received the following medications prior to the cardiac CT. 5 mg of intravenous metoprolol 0.4 mg of sublingual nitroglycerin The average heart rate at the time of acquisition was 63 bpm and regular. Image Reconstruction Transaxial images were reconstructed at 0.67 mm slide thickness. Data was reviewed interactively on an advanced workstation capable of 2 and 3-dimensional displays in all conventional reconstruction formats, including multiplanar reformations, maximum intensity projections, curved multiplanar reformations, and volume rendered reconstructions. When applicable, selected routine images describing the relevant coronary anatomy and pathology were saved and sent to PACS. Complications None Technical Quality Overall image quality was fair. Coronary artery opacification was suboptimal. Total DLP (Dose-Length Product) is 4653.1 mGy-cm. The reported value represents the total of one or more individual components during the CT acquisition of this date and at this time, and as such, the same value may appear in more than one CT report depending on the interpreting/reporting physicians. COMPARISON None FINDINGS CT Coronary Calcium Scoring LMA (Left Main Artery) = 2 LAD (Left Anterior Descending) = 5 LCX (Left Coronary Circumflex) = 17 RCA (Right Coronary Artery) = 23 Total Calcium Score = 47 using the AJ-130 method. The observed calcium score of 47 is at 86th percentile for subjects of the same age, sex, and race/ethnicity. The interpretation of the calcium heart score is based on the following continuum*: 0 = no calcified plaque detected (risk of coronary artery disease is very low ??? less than 5%) 1-10 = calcium detected in extremely minimal levels (risk of coronary diseases is still low ??? less than 10%) 11-100 = mild levels of plaque detected with certainty (mild or minimal narrowing of heart arteries is likely) 101-400 = definite,at least moderate levels of plaque detected (relatively high risk of a heart attack within 3-5 years) >401-999 = extensive levels of plaque detected (high risk of heart attack, high levels of vascular disease are present, high likelihood of at least one significant coronary narrowing) *The calcium heart score quantifies the burden of coronary calcification/plaque in the coronary arteries. The calcium heart score is not able to evaluate the presence or burden of non-calcified (i.e. soft) plaque. There is no identifiable calcification in the aortic valve, mitral annulus or mitral valve, pericardium, or myocardium. Coronary CT Angiography The coronary arterial system is right dominant. Quantitative Stenosis Grading: Left Main (LM): The left main originates normally from the left sinus of Valsalva. The LM bifurcates into the left anterior descending artery and left circumflex artery. There is minimal calcification in the distal LM, with no luminal stenosis. Left Anterior Descending (LAD) and Diagonal Branches: The LAD gives off 2 diagonal branch(es). There is calcified plaque in the proximal LAD, with < 30% luminal stenosis. There is no evidence of LAD-myocardial bridge. Left Circumflex (LCX) and Obtuse Marginals (OM): The LCX gives off 1 Obtuse Marginal (OM) branch(es). There is mixed calcified/noncalcified in the proximal and mid LCx, with 25-49% luminal stenosis. Right Coronary Artery (RCA): The RCA originates normally from the right sinus of Valsalva. The RCA gives off a posterior descending artery (PDA) and posterolateral (PL) branches. There is mild calcification in the proximal RCA, with no luminal stenosis. Non-Coronary Cardiac Findings: Analysis of the left ventricular (LV) structure and function was performed after 3-D reconstruction of the LV from axial images, with user-corrected automatic contouring for assessment of LV volumes and user-defined reconstruction from oblique planes for measurement of 3-D cardiac structure and function. -The left ventricle systolic function is normal. -There is no left atrial appendage filling defect. Two right pulmonary veins and two left pulmonary veins drain normally into the left atrium. -No pericardial thickening or calcification. -Central and branch pulmonary arteries in the [id number] are unremarkable. -Thoracic aorta within the visualized thoracic aortic-branches in the [id number] is unremarkable. Extracardiac Structures No significant extra-cardiac findings. Note, however, that this study is focused on the cardiac findings. IMPRESSION -Suboptimal study due to motion and and suboptimal opacification of IV contrast in coronary arteries. -Presence of coronary calcification with an Agatston score = 47 using the AJ-130 method. -The observed calcium score of 47 is at 86th percentile for subjects of the same age, sex, and race/ethnicity. -Mild atherosclerotic plaque in the visualized segments, but no evidence of significant flow-limiting atherosclerosis of the coronary arteries. -CAD-RADS 2. Management recommendations per ACC/AHA guidelines*, as clinically appropriate. *Recommendations: CAD RADS 0: Reassurance. Consider non-atherosclerotic causes of chest pain. CAD RADS 1: Consider non-atherosclerotic causes of chest pain. Consider preventive therapy and risk factor modification. CAD RADS 2: Consider non-atherosclerotic causes of chest pain. Consider preventive therapy and risk factor modification, particularly for patients with nonobstructive plaque in multiple segments. CAD RADS 3: Consider further functional testing. Consider symptom-guided anti-ischemic and preventive pharmacotherapy as well as risk factor modification per published guideline statements. CAD RADS 4A: Consider further functional testing or invasive coronary angiography with revascularization per published guideline statements. Consider symptom-guided anti-ischemic and preventive pharmacotherapy as well as risk factor modification per published guideline statements. CAD RADS 4B: Invasive coronary angiography recommended with revascularization per published guideline statements. Consider symptom-guided anti-ischemic and preventive pharmacotherapy as well as risk factor modification per published guideline statements. CAD RADS 5: Consider invasive angiography and/or viability assessment with revascularization per published guideline statements. Consider symptom-guided anti-ischemic and preventive pharmacotherapy as well as risk factor modification per published guideline statements. CRITICAL RESULT None COMMUNICATION Per this written report The coronary and cardiac findings of this CCTA were reviewed, reported, and signed by Branden Joiner MD ([employer]ementer) Conclusion Electronically signed by : Kelley Joiner MD 03/20/2024 13:28:48
[2024-03-18 07:45] LABS: Anion Gap 13.8 mEq/L (5-15); Blood Urea Nitrogen 12 mg/dl (9-20); Calcium 9.3 mg/dl (8.4-10.2); Carbon Dioxide 30 mmol/L (22.0-30.0); Chloride 99 mmol/L (98-107); Creatinine Clearance Estimated 93 mL/min (50-200); Estimated Glomerular Filt Rate 80 ml/min (>60); GFR (African American) 97 ML/MIN (>60); Glucose 124 mg/dl (74-100); Potassium 3.8 mmoL/L (3.5-5.1); Sodium 139 mmol/L (136-145)
[2024-03-18] MEDS: NITROGLYCERIN 0.4MG SL TABLET SL (08:14)
[2024-03-18] MEDS: METOPROLOL TARTRATE 5MG/5ML VIAL 5 MG IV (08:14)
[2024-03-18] MEDS: SODIUM CHLORIDE 0.9% 10ML SYR (RAD ONLY) 10 ML IV ×2 (08:42)
[2024-03-18] MEDS: 0.9 % SODIUM CHLORIDE 50 ML VIAL IV ×2 (08:42)
[2024-03-18] MEDS: IOPAMIDOL-370 (76%);100ML BOTTLE 85 ML IV (08:43)
[2024-03-18] MEDS: IOPAMIDOL-370 (76%);100ML BOTTLE 100 ML IV (08:43)
--- NOTE | 2024-03-18 08:55 | PC.NURSE ---
patient transported to Echo
--- NOTE | 2024-03-18 09:37 | XR_ITS ---
FINAL REPORT CLINICAL HISTORY: Ankle pain injury 2018 COMPARISON: None FINDINGS: LEFT ANKLE: Three views of the left ankle were obtained. There are postoperative changes in the lateral malleolus. There is no acute fracture or dislocation. Mild degenerative change is noted. There is soft tissue swelling. IMPRESSION: Soft tissue swelling without acute bony abnormality. Postoperative changes lateral malleolus. Reviewed, Interpreted and Dictated by Jose Dao III, MD Transcribed by Anna Marie Lopez Authenticated and [facility]
--- NOTE | 2024-03-18 09:37 | XR_ITS ---
FINAL REPORT CLINICAL HISTORY: Foot Pain injury 2018 COMPARISON: 11/23/2023 FINDINGS: LEFT FOOT: Three views of the left foot were obtained. Postoperative changes are noted in the calcaneus and navicular. There is no acute fracture or dislocation. There are mild degenerative changes. Small calcaneal spur is present. There is no soft tissue abnormality. IMPRESSION: Stable postoperative and degenerative changes without acute bony abnormality. Reviewed, Interpreted and Dictated by Jose Dao III, MD Transcribed by Anna Marie Lopez Authenticated and [facility]
== END 2024-03-18 09:00 | disposition home or self-care (01) ==
LOC: RAD 07:00
PROVIDERS: Nurse Practitioner; PCP Physician Assistant; Visit Provider Podiatrist
DX: R07.89 Other chest pain (principal); R94.31 Abnormal electrocardiogram [ECG] [EKG]; R42 Dizziness and giddiness; E78.2 Mixed hyperlipidemia; K21.9 Gastro-esophageal reflux disease without esophagitis; I10 Essential (primary) hypertension; F14.11 Cocaine abuse, in remission; M79.672 Pain in left foot; M25.572 Pain in left ankle and joints of left foot; E66.9 Obesity, unspecified
CPT/HCPCS: 73610; 73630; 75571; 75574; 80048; 93306; Q9967

== ENCOUNTER 2024-04-10 14:19 | Outpatient (CLI) | payer OTHER, SELFPAY ==
[2024-03-18 06:55] VITALS: BMI 42.2
--- NOTE | 2024-04-10 14:20 | CT_ITS ---
FINAL REPORT TECHNIQUE: Axial images of the chest was performed using Thin section axial images of the chest were obtained by computed tomography with inspiration and expiration supine and prone inspiration. High-resolution technique was performed with inspiration and expiration on the supine images and inspiration on the prone images. CLINICAL HISTORY: .nodule and soa High resolution Chest x 3 (inspiration, expiration) prone inspiration FINDINGS: There is no evidence of mediastinal or hilar mass. There are multiple borderline size axillary masses, favor reactive. There is no evidence of emphysema, bronchiectasis, or interstitial lung disease. On the expiration images, there is mild patchy air trapping. There is a 2 mm left lower lobe nodule well seen on series 2, image 39, most likely benign. Limited images of the upper abdomen demonstrate several gallstones. There is mild fatty infiltration of the liver. IMPRESSION: No evidence of emphysema, bronchiectasis, or interstitial lung disease. Likely benign nodule in the left lower lobe. Reviewed, Interpreted and Dictated by Jose Dao III, MD Transcribed by Kerri Loco Authenticated and [facility]
[2024-04-10 15:35] VITALS: PULSE 80; PULSE 85
[2024-04-10] MEDS: ALBUTEROL 0.083% 2.5 MG/3 ML NEB IH (15:35)
== END 2024-04-10 23:59 | disposition home or self-care (01) ==
LOC: RAD 14:20
PROVIDERS: PCP Physician Assistant; Visit Provider Internal Medicine Pulmonary Disease
DX: J84.9 Interstitial pulmonary disease, unspecified (principal); R06.09 Other forms of dyspnea; Z87.891 Personal history of nicotine dependence
CPT/HCPCS: 71250; 94060; 94618; 94640; 94726; 94729

== ENCOUNTER 2024-07-17 07:21 | Outpatient (CLI) | payer OTHER, SELFPAY ==
--- OUTSIDE RECORDS SUMMARY | 2024-07-17 07:24 | XMS_ITS ---
Author Organization [facility] [place] Address [address] [place] [address] Phone Care Team Providers Care Swatch Checker Name Role Phone Rosario BACA, Kevin Wallis Unavailable [phone] Nohelia Alex PA-C Primary Care Provider [phone] Reason for Referral Date Encounter Description Provider Reason for Referral 10/16/22 NEW PROBLEM/EST PT Curt Pacheco PA-C Referral To Physician 09/25/22 Non Physician Specified Curt Pacheco PA-C Referral To Physician Problems Includes: Active, inactive, and resolved Problems All Visits Onset Date Resolved Date Provider Condition S tatus Lower Back Pain 06/09/2024 Tim morfin MD Active Last Documented On 4 3:35PM ; [facility] [place] Neck Pain 10/23/2022 Tim Kohler MD Active Last Documented On 2 10:11AM ; [facility] [place] Joint Pain in the Left Knee 12/04/2017 Chandler Al MD Active Last Documented On 8 3:07PM ; [facility] [place] Plan of Treatment Pending Tests Order Diagnosis Results Due Ordering P rovider Radiology - MRI MRI Cervical Spine 11/06/22 Alma Kohler MD Last Documented On 2 11:31AM ; [facility] [place] Radiology - MRI MRI Thoracic Spine Radiculopathy, cervical region 02/25/24 Tim Kohler MD Last Documented On 4 8:45AM ; [facility] [place] Radiology - MRI MRI Cervical Spine Cervicalgia 02/25/24 Tim Kohler MD Last Documented On 4 8:45AM ; [facility] Radiology - MRI MRI Lumbar Spine Low back pain, unspecified 06/23/24 Tim Kohler MD Last Documented On 4 3:47PM ; [facility] Future Appointments Date Time Location Provi nova Follow Up 08/11/2024 9:45AM [facility] ALEJANDRA Kohler MD Last Documented On 4 9:59AM ; [facility] Follow Up 10/06/2024 10:15AM [facility] ALEJANDRA Kohler MD Last Documented On 4 9:20AM ; [facility] Instructions to patient Lose weight Last Documented On 4 3:19PM ; [facility] Lose weight Last Documented On 4 8:52AM ; [facility] Lose weight Last Documented On 4 1:40PM [...] bp Last Documented On 9 10:36AM ; [facility] Instructions for patient see pcp for bp Last Documented On 9 9:59AM ; [facility] Instructions for patient see pcp for bp Last Documented On 9 8:57AM ; [facility] Instructions for patient see pcp for bp Last Documented On 9 8:59AM ; [facility] No intervention and counseli ng on cessation of tobacco use Last Documented On 9 9:00AM ; [facility] Instructions for patient Pat ient to see PCP for BP Last Documented On 8 3:09PM ; [facility] Lose weight Last Documented On 8 3:09PM ; [facility] Education and Decision Aids were provided during visit for: No health seminar on smoking cessation Last Documented On 9 9:00AM ; [facility] Assessments Includes: Assessments for all patient encounters Findings Encounter Date Overweight NEW PROBLEM/EST PT with Tim Kohler MD 06/09/2024 Last Documented On 4 3:47PM ; [facility] Overweight Follow Up with Tim Ayala MD 04/07/2024 Last Documented On 4 1:06PM ; [facility] Overweight Follow Up with Tim Ayala MD 02/11/2024 Last Documented On 4 8:45AM ; [facility] Overweight Follow Up with Tim Ayala MD 09/10/2023 Last Documented On 3 11:37AM ; [facility] Instructions Includes: Instructions for all patient encounters Instructions to patient Lose weight Last Documented On 4 3:19PM ; [facility] Lose weight Last Documented On 4 8:52AM ; [facility] Lose weight Last Documented On 4 1:40PM ; [facility] Lose weight Last Documented On 3 9:00AM ; [facility] Lose weight Last Documented On [...] On 9 9:00AM ; [facility] Medical Equipment - Implanted Devices Includes: Current and historical Devices No Medical Equipment Recorded Medications Includes: Current and historical Medications Current Medications (continue as prescribed) Adult Aspirin Regimen 81 MG Oral Tablet Delayed Releas e 04/07/2024 Provider: Diagnosis: Last Documented On 4 1:05PM By Tim Kohler ; [facility] [place] Vitamin D (Ergocalciferol) 1.25 MG (30716 UT) Oral Cap apryl 03/31/2024 Provider: Diagnosis: Last Documented On 4 1:05PM By Tim Kohler ; [facility] [place] Omeprazole 40 MG Oral Capsule Delayed Release 02/27/20 24 Provider: Diagnosis: Last Documented On 4 1:05PM By Tim Kohler ; [facility] [place] Atorvastatin Calcium 10 MG Oral Tablet 02/10/2024 Pr ovider: Diagnosis: Last Documented On 4 1:05PM By Tim Kohler ; [facility] [place] Famotidine 40 MG Oral Tablet 02/10/2024 Provider: Diagnosis: Last Documented On 4 1:05PM By Tim Kohler ; [facility] [place] Metoprolol Succinate ER 25 M G Oral Tablet Extended Release 24 Hour 02/03/2024 Provider: Diagnosis: Last Documented On 4 1:05PM By Tim Kohler ; [facility] [place] Meclizine HCl 25 MG Oral Tablet 01/22/2024 Provider: Diagnosis: Last Documented On 4 1:06PM By Tim Kohler ; [facility] [place] Past Medications on file EQL [place] 3 Fish Oil 1000 MG Oral Capsule 09/10/2023 - 10/10/2023 Provider: Diagnosis: Last Documented On 4 1:05PM By Tim Kohler ; [facility] [place] Vitamin D (Ergocalciferol) 1 .25 MG (56733 UT) Oral Capsule 09/10/2023 - 10/15/2023 Provider: Diagnosis: Last Documented On 3 9:07AM By Tim Kohler ; [facility] [place] Omeprazole 40 MG Oral Capsule Delayed Release 09/10/20 23 - 12/09/2023 Provider: Diagnosis: Last Documented On 3 9:06AM By Tim Kohler ; [facility] Adult Aspirin Regimen 81 MG Oral Tablet Delayed Release 09/10/2023 - 10/10/2023 Provider: Diagnosis: Last Documented On 4 1:05PM By Tim Kohler ; [facility] Atorvastatin Calcium 10 MG Oral Tablet 11/13/2022 - Provider: Diagnosis: Last Documented On 4 1:05PM By Tim Kohler ; [facility] Famotidine 40 MG Oral Tablet 11/12/2022 - 02/10/2023 Kadi whiteder: Diagnosis: Last Documented On 4 1:05PM By Tim Kohler ; [facility] Metoprolol Succinate ER 25 M G Oral Tablet Extended Release 24 Hour 11/05/2022 - 12/06/2022 Provider: Diagnosis: Last Documented On 4 1:05PM By Tim Kohler ; [facility] Vitamin D (Ergocalciferol) 1 .25 MG (75034 UT) Oral Capsule 09/15/2022 - 10/15/2022 Provider: Diagnosis: Last Documented On 3 9:07AM By Tim Kohler ; [facility] Omeprazole 40 MG Oral Capsule Delayed Release 09/03/20 22 - 12/04/2022 Provider: Diagnosis: Last Documented On 3 9:07AM By Tim Kohler ; [facility] Keflex 500MG Oral Capsule 10/04/2018 - 10/11/2018 Prov ider: Steve Romero MD Diagnosis: three times a day Last Documented On 8 9:52AM By Lilian Mccauley ; [facility] Empire 7.5-325MG Oral Tablet 09/19/2018 - 09/29/2018 Pr ovider: Steve Romero MD Diagnosis: 1 tab every 6 hrs prn pain 1 tablet every 6 hours for pain, post op Last Documented On 8 11:08AM By Gaviota Ray ; [facility] Medications Administered Includes: Administered Medications in patient's chart No Administered Medications Recorded Vital Signs Includes: Vital Signs from 07/17/2023 through 07/17/2024 Vital Name 06/09/2024 03:20P 04/07/2024 08:58A 02/11/2024 01:40P 09/10/2023 09:05A Height (in) 70 70 70 70 Weight (lb) 290 285.6 290 290 Body Mass Index 41.6 41 41.6 41.6 Body Surface Area 2.4 2.4 2.4 2.4 Note: HL lc HL ct Last Documented: On 06/09/2024 3:20PM ; [facility] On 04/07/2024 9:03AM ; [facility] On 02/11/2024 1:40PM ; [facility] On 09/10/2023 9:05AM ; [facility] [place] Results Includes: Results from 07/17/2023 through 07/17/2024 No Results Recorded For Specified Dates History of Present Illness History of Present Illness not supported for this document type No History of Present Illness Recorded Social History Description Last Updated Caffeine use 11/13/2022 Last Documented On 4 8:16AM ; [facility] [place] No recent change in diet 11/13/2022 Last Documented On 4 8:16AM ; [facility] [place] Not a current smoker. 11/13/2022 Last Documented On 4 8:16AM ; [facility] [place] Not exercising regularly 11/13/2022 Last Documented On 4 8:16AM ; [facility] [place] Not using alcohol 11/13/2022 Last Documented On 4 8:16AM ; [facility] [place] Not using drugs 11/13/2022 Last Documented On 4 8:16AM ; [facility] [place] Tobacco non-user 11/13/2022 Last Documented On 4 8:16AM ; [facility] [place] No tobacco use 12/04/2017 Last Documented On 8 2:46PM ; [facility] [place] Smoking status : Never smoker 12/04/2017 Last Documented On 8 2:46PM ; [facility] No recent change in diet 12/04/2017 Last Documented On 8 2:46PM ; [facility] Not a current smoker 12/04/2017 Last Documented On 8 2:46PM ; [facility] [place] Procedures and Surgical History Includes: Procedures from 07/17/2023 through 07/17/2024 Procedures Code Diagnosis Performing Provider Service Location Service Date X-RAY EXAM OF LOWER SPINE 4-5 VIEWS 18310 Other low back pain Tim Kohler MD [facility] 06/09/2024 Last Documented On 4 2:17PM ; [facility] Surgical History Last Updated History of total knee arthroplasty ACL&M eniscus repair 10/23/2022 Last Documented On 2 11:31AM ; [facility] Medical History Includes: Medical History in patient's chart Description Last Updated 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 Last Documented On 4 8:45AM ; [facility] History of Heartburn / Acid Reflux 11/13 Last Documented On 4 8:16AM ; [facility] History of Sleep Apnea 11/13/2022 Last Documented On 4 8:16AM ; [facility] No recent immunization for flu 3 Last Documented On 4 8:16AM ; [facility] No recent immunization for pneumococcal pneumonia 11/13/2022 Last Documented On 4 8:16AM ; [facility] Past Surgical History: slipp ed femoral epiphysis, wisom teeth, varicose veins 11/13/2022 Last Documented On 4 8:16AM ; [facility] Family History Includes: Family History in patient's chart Description Last Updated Family history of heart disease 11/13/19 23 Last Documented On 4 8:16AM ; [facility] Family history of diabetes mellitus 05/05 Last Documented On 0 1:36PM ; [facility] Family history of hypertension 9 Last Documented On 0 1:36PM ; [facility] Family history of rheumatoid arthritis 0 05/15/2019 Last Documented On 0 1:36PM ; [facility] No significant family history 12/04/2017 Last Documented On 8 2:46PM ; [facility] Review of Systems Review of Systems [...] 1 09/25/2022 Complete (Refused - Patient objection) [facility] Last Documented On 2 1:15PM ; [facility] PCV (Pneumovax 23) 1 09/25/2022 Complete (Refused - Patient objection) [facility] Last Documented On 2 1:15PM ; [facility] Td 1 09/25/2022 Complete (Refused - Patient objection) [facility] Last Documented On 2 1:15PM ; [facility] Allergies Includes: Active, inactive, and resolved Allergies No Known Allergies Encounters Includes: Encounters from 07/17/2023 through 07/17/2024 Encounter Provider Location Date Check-In Time Check-Out Time Diagnosis NEW PROBLEM/EST PT Tim Ng-Victor Manuel morfin MD [facility] 06/09/20 24 2:58PM 3:35PM Overweight Follow Up Tim Ng-Victor Manuel morfin MD [facility] 04/07/20 24 8:48AM 9:13AM Overweight Follow Up Tim morfin MD [facility] 02/11/20 24 1:33PM 1:55PM Overweight Follow Up Tim morfin MD [facility] 09/10/20 23 8:58AM 9:18AM Overweight Insurance Includes: Active Insurance Policies Plan Name Member ID Group # Subscriber Relationship Effect hay Dates 1 - [employer] [facility] [id number] VAN JARVIS Self 1 - Unknown Clinical Notes Includes: Signed Clinical Notes starting from 10/19/2022 * Progress note Date Encounter Last Documented by 06/09/2024 NEW PROBLEM/EST PT Last document ed on 06/09/2024; 3:47 PM, Tim Kohler MD; [facility] [place] Active Problems & Conditions - Joint Pain in the Left Knee - Lower Back Pain - Neck Pain Chief Complaint The Chief Complaint is: Low back pain-radiculopathy. Referred Here Referred by Self. History of Present Illness VAN JARVIS is a 48 year old male. - Symptoms Locking Nothing makes pain better Being on my feet makes pain worse. - Allergy list reviewed - Problem list reviewed - Medication list reviewed - Previous history of new onset pain 04/2023 Injury is not work related or an automotive accident - Sharp pain Symptoms - Pain is constant (100% of the time) - Pain is dull, aching - Patient pain level from 1-10: 4 -5 - Yes, previous treatment. with Dr. Rodriguez - History of Physical Therapy @ [facility] starting 10/26/2022-currently - History of Home Exercise - - Review of medications documented Medications used for this condition: This is a 48-year-old man following up with me. I see him regularly for myelopathy checkups. Today, he tells me that the sheet metal smith who he has been following with for long time regarding his left foot recommended that he talk to me as well. He recently underwent an EMG in his bilateral lower extremities that show some bilateral sural nerve problems in the wondering if there has a contribution from his lumbar spine as well. Current Medication - Adult Aspirin Regimen 81 MG Oral Tablet Delayed Release once a day 0 days, 0 refills - Atorvastatin Calcium 10 MG Oral Tablet once a day 90 days, 0 refills - Famotidine 40 MG Oral Tablet once a day 90 days, 0 refills - Meclizine HCl 25 MG Oral Tablet three times a day 10 days, 0 refills - Metoprolol Succinate ER 25 MG Oral Tablet Extended Release 24 Hour once a day 90 days, 0 refills - Omeprazole 40 MG Oral Capsule Delayed Release once a day 90 days, 0 refills - Vitamin D (Ergocalciferol) 1.25 MG (16696 UT) Oral Capsule take as directed 98 days, 0 refills Past Medical/Surgical History Reported: [...] wheezing. Gastrointestinal: Heartburn. No abdominal pain. No Indigestion, no Peptic Ulcer, no GI Stomach Bleed, and no Ulcers. Acid Reflux. Endocrine: No hot flashes, no muscle weakness, [...] allergic reaction. Physical Findings - Vitals taken 06/09/2024 03:20 pm HL Height 70 in Weight 290 [...] assistive device Symmetric, palpable radial pulses bilaterally He is still demonstrates a sort of subtle resting tremor that does not seem to get worse with activity but rather seems to improve when he uses his hands. This has not progressed much since I last saw him. Tests 4v lumbar spine xrays AP, Lateral, Flexion and Extension views of the lumbar spine were obtained today There is some diffuse lumbar spondylosis but no obvious fracture or spondylolisthesis User Defined 5 This is a 48-year-old concern for lumbar radiculopathy It was nice talking to Eduardo again in the office today. I told him that I would recommend an MRI of his lumbar spine to assess for any proximal nerve root pathology in addition to his likely sural nerve difficulties peripherally. I will also give him Dr. Johnson's information he wishes to seek a 2nd opinion from a different foot and ankle specialist. Assessment - Overweight Previous Tests Laboratory Studies: Neuro-Electrical Functions: EMG 12/19/2021 BUE @ [facility] 04/24/2022 B[facility] @ [facility]. Imaging: X-Ray: An X-ray was performed 09/25/2022 Neck @ [facility] 03/12/2023 Neck @ [facility] 06/09/2024 LSpine @ [facility]. MRI Scan: An MRI was performed 10/30/2022 CSpine @ [facility] 03/11/2024 TSpine @ [facility] 03/11/2024 CSpine @ [facility]. Counseling/Education - Tobacco non-user - Use of tobacco assessment performed - Lose weight Plan StartCited - Low back pain, unspecified Radiology/MRI: MRI Lumbar Spine EndCited Practice Management Use of tobacco assessment performed Review of medications documented; No influenza immunization patient refused. Care Team - Nohelia Alex PA-C Notes This dictation was done with voice recognition software and may contain errors and omissions. * Progress note Date Encounter Last Documented by 04/07/2024 Follow Up Last documented on 04/07/2024; 1:06 PM, Tim Ayala MD; [facility] [place] Active Problems & Conditions - Joint Pain in the Left Knee - Neck Pain Chief Complaint The Chief Complaint is: Cervical pain. Referred Here Referred by [facility]- Curt Pacheco PA-C. History of Present Illness VAN JARVIS is a 48 year old male. - Allergy list reviewed - Problem list reviewed - Medication list reviewed - Previous history of new onset pain Injury is not work related or an automotive accident - Patient pain level from 1-10: 4 -5 - Yes, previous treatment. with Dr. 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 His physical exam has remained stable. He says that it was neck pain and left arm pain is really not too bad at this time. Current Medication - Adult Aspirin Regimen 81 MG Oral Tablet Delayed Release once a day 0 days, 0 refills - Atorvastatin Calcium 10 MG Oral Tablet once a day 90 days, 0 refills - Famotidine 40 MG Oral Tablet once a day 90 days, 0 refills - Meclizine HCl 25 MG Oral Tablet three times a day 10 days, 0 refills - Metoprolol Succinate ER 25 MG Oral Tablet Extended Release 24 Hour once a day 90 days, 0 refills - Omeprazole 40 MG Oral Capsule Delayed Release once a day 90 days, 0 refills - Vitamin D (Ergocalciferol) 1.25 MG (20610 UT) Oral Capsule take as directed 98 days, 0 refills Past Medical/Surgical History Reported: [...] wheezing. Gastrointestinal: Heartburn. No abdominal pain. No Indigestion, no Peptic Ulcer, no GI Stomach Bleed, and no Ulcers. Acid Reflux. Endocrine: No hot flashes, no muscle weakness, [...] allergic reaction. Physical Findings - Vitals taken 04/07/2024 08:58 am lc Height 70 in Weight 285 lbs 9.6 oz Body Mass Index 41 kg/m2 Standard Measurements: - Patient was overweight. General: [...] assistive device Symmetric, palpable radial pulses bilaterally He is still demonstrates a sort of subtle resting tremor that does not seem to get worse with activity but rather seems to improve when he uses his hands. This has not progressed much since I last saw him. Tests MRI cervical spine. Compared to his prior cervical MRI, I do not think things have progressed too much. I still see a disc osteophyte complex it was left paracentrally at C6-7 as well as a more central disc osteophyte complex at C5-6. I think these both contribute to some mild central canal stenosis and some severe left foraminal stenosis. Otherwise the scan is fairly benign. MRI thoracic spine. I see diffuse degenerative changes with a few small disc bulges and some facet and rib facet arthropathy. But nothing that would cause any compression on the thoracic spinal cord or severe issues. User Defined 5 This is a 48-year-old man with left cervical radiculopathy. It was nice seeing Eduardo. He has always been faithful with his follow up since then whatever we have asked of him. For now, I told him that we can space out his follow up a bit further including all the way out to 6 months. He is very much in favor of that. We will see him in 6 months to check in. Assessment - Overweight Previous Tests Laboratory Studies: Central Auditory Function Testing: EMG 12/19/2021 [facility] @ [facility] 04/24/2022 B[facility] @ [facility]. Imaging: Intravascular Ultrasound (Coronary Vessel/Graft): An X-ray was performed 09/25/2022 [facility]ck @ [facility] 03/12/2023 Neck @ [facility]. CT Scan Lower Extremity Foot: An MRI was performed 10/30/2022 CSpine @ [facility] 03/11/2024 TSpine @ [facility] 03/11/2024 CSpine @ [facility]. Counseling/Education - Tobacco non-user - Use of tobacco assessment performed - Lose weight Practice Management Use of tobacco assessment performed Review of medications documented; No influenza immunization patient refused. Care Team - Nohelia Alex PA-C Notes This dictation was done with voice recognition software and may contain errors and omissions. * Progress note Date Encounter Last Documented by 02/11/2024 Follow Up Last documented on 02/12/2024; 8:45 AM, Tim Ayala MD; [facility] [place] Active Problems & Conditions - Joint Pain in the Left Knee - Neck Pain Chief Complaint The Chief Complaint is: Cervical pain. Referred Here Referred by [facility]- Curt Pacheco PA-C. History of Present Illness [...] Rodriguez - History of Physical Therapy @ [facility] starting 10/26/2022-currently Medications used for this [...] his back. He is following with a direct service provider to discuss whether or not there is any concern for abdominal aortic aneurysm. Current Medication - Adult Aspirin Regimen 81 MG Oral Tablet Delayed Release take as directed 0 days, 0 refills - Atorvastatin Calcium 10 MG Oral Tablet 90 days, 0 refills - EQL [place] 3 Fish Oil 1000 MG Oral Capsule [...] him that I would make sure his direct service provider as investigating him for an aneurysm in [...] Studies: Neuro-Electrical Functions: EMG 12/19/2021 [facility] @ [facility] 04/24/2022 [facility] @ [facility]. Imaging: X-Ray: An X-ray was performed 09/25/2022 Neck @ [facility] 03/12/2023 Neck @ [facility]. MRI Scan: [facility]. Counseling/Education - Lose weight Plan StartCited [...] on 09/10/2023; 11:37 AM, Tim Ayala MD; [facility] [place] Active Problems & Conditions - Joint Pain [...] Rodriguez - History of Physical Therapy @ [facility] starting 10/26/2022-currently Medications used for this condition: This is a very pleasant 47-year-old man here for a 6-month myelopathy checkup. He denies any significant neck pain or any significant changes in his fine motor control in his hands or any significant changes in his balance. As a side note, he did undergo a fairly extensive left foot surgery with a sheet metal smith at [facility]. Current Medication - Adult Aspirin Regimen 81 MG Oral Tablet Delayed Release take as directed 0 days, 0 refills - Atorvastatin Calcium 10 MG Oral Tablet 90 days, 0 refills - EQL [place] 3 Fish Oil 1000 MG Oral Capsule take as directed 0 days, 0 refills - Famotidine 40 MG Oral Tablet 90 days, 0 refills - Metoprolol Succinate ER 25 MG Oral Tablet Extended Release 24 Hour 30 days, 0 refills - Omeprazole 40 MG Oral Capsule Delayed Release 90 days, 0 refills - Vitamin D (Ergocalciferol) 1.25 MG (16509 UT) Oral Capsule take as directed 35 [...] Studies: Neuro-Electrical Functions: EMG 12/19/2021 BUE @ [facility] 04/24/2022 BUE @ [facility]. Imaging: X-Ray: An X-ray was performed 09/25/2022 Neck @ [facility]. MRI Scan: An MRI was performed 10/30/2022 [facility] @ [facility]. Counseling/Education - Lose weight Practice Management Use of tobacco assessment performed Review of medications documented; No influenza immunization patient refused. Care Team - Nohelia Alex PA-C Notes This dictation was done with voice recognition software and may contain errors and omissions.
--- OUTSIDE RECORDS SUMMARY | 2024-07-17 07:24 | XMS_ITS | Clinical Summary ---
Author Organization [facility] , [facility] Address [address] [place] [address] Phone Care Team Providers Care Radiotelegrapher Name Role Phone Rosario BACA, Kevin Wallis Unavailable [phone] Nohelia Alex PA-C Primary Care Provider [phone] Reason for Visit and Chief Complaint The Chief Complaint is: Cervical pain Problems Includes: Problems addressed during this encounter and other active Problems Current Visit Onset Date Resolved Date Provider Conditio n Status Lower Back Pain 06/09/2024 Tim morfin MD Active Last Documented On 4 3:35PM ; [facility], [facility] Past Visits Onset Date Resolved Date Provider Condition Status Neck Pain 10/23/2022 Tim Kohler MD Active Last Documented On 2 10:11AM ; [facility], [facility] Joint Pain in the Left Knee 12/04/2017 Chandler Al MD Active Last Documented On 8 3:07PM ; [facility], [facility] Plan of Treatment Pending Tests Order Diagnosis Results Due Ordering P rovider Radiology - MRI MRI Cervical Spine 11/06/22 Alma Kohler MD Last Documented On 2 11:31AM ; [facility], [facility] Radiology - MRI MRI Thoracic Spine Radiculopathy, cervical region 02/25/24 Tim Kohler MD Last Documented On 4 8:45AM ; [facility], [facility] Radiology - MRI MRI Cervical Spine Cervicalgia 02/25/24 Tim Kohler MD Last Documented On 4 8:45AM ; [facility], [facility] Radiology - MRI MRI Lumbar Spine Low back pain, unspecified 06/23/24 Tim Kohler MD Last Documented On 4 3:47PM ; [facility] Future Appointments Date Time Location Provi nova Follow Up 08/11/2024 9:45AM [facility] Kohler MD Last Documented On 4 9:59AM ; [facility] [place] Follow Up 10/06/2024 10:15AM [facility] Kohler MD Last Documented On 4 9:20AM ; [facility], [facility] Instructions to patient Lose weight Last Documented On 3 12:45PM ; [facility], [facility] Assessments Includes: Assessments from this encounter Findings This is a 47-year-old man with mild physical exam findings for cervical myelopathy that have not progressed - Last Documented On 03/12/2023 2:09PM ; [facility], [facility] It was nice seeing Eduardo back in the office today. At this time, I think it is very appropriate to have him follow-up with me in 6 months for repeat myelopathy check. I think he is safe to proceed with foot surgery in the meantime. He can call me between now and 6 months from now if new issues arise. - Last Documented On 03/12/2023 2:09PM ; [facility], [facility] Instructions Includes: Instructions from this encounter Instructions to patient Lose weight Last Documented On 3 12:45PM ; [facility] Medical Equipment - Implanted Devices Includes: Current Devices No Medical Equipment Recorded Medications Includes: Medications discussed during this encounter and other current Medications Current Medications (continue as prescribed) Adult Aspirin Regimen 81 MG Oral Tablet Delayed Releas e 04/07/2024 Provider: Diagnosis: Last Documented On 4 1:05PM By Tim Kohler ; [facility], [facility] Vitamin D (Ergocalciferol) 1.25 MG (64394 UT) Oral Cap apryl 03/31/2024 Provider: Diagnosis: Last Documented On 4 1:05PM By Tim Kohler ; [facility], [facility] Omeprazole 40 MG Oral Capsule Delayed Release 02/27/20 Provider: Diagnosis: Last Documented On 4 1:05PM By Tim Kohler ; [facility], [facility] Atorvastatin Calcium 10 MG Oral Tablet 02/10/2024 Pr ovider: Diagnosis: Last Documented On 4 1:05PM By Tim Kohler ; [facility], [facility] Famotidine 40 MG Oral Tablet 02/10/2024 Provider: Diagnosis: Last Documented On 4 1:05PM By Tim Kohler ; [facility], [facility] Metoprolol Succinate ER 25 M G Oral Tablet Extended Release 24 Hour 02/03/2024 Provider: Diagnosis: Last Documented On 4 1:05PM By Tim Kohler ; [facility], [facility] Meclizine HCl 25 MG Oral Tablet 01/22/2024 Provider: Diagnosis: Last Documented On 4 1:06PM By Tim Kohler ; [facility], [facility] Past Medications on file Vitamin D (Ergocalciferol) 1 .25 MG (03085 UT) Oral Capsule 09/10/2023 - 10/15/2023 Provider: Diagnosis: Last Documented On 3 9:07AM By Tim Kohler ; [facility], [facility] Omeprazole 40 MG Oral Capsule Delayed Release 09/10/20 23 - 12/09/2023 Provider: Diagnosis: Last Documented On 3 9:06AM By Tim Kohler ; [facility], [facility] Keflex 500MG Oral Capsule 10/04/2018 - 10/11/2018 Prov ider: Steve Romero MD Diagnosis: three times a day Last Documented On 8 9:52AM By Lilian Mccauley ; [facility], [facility] [place] 7.5-325MG Oral Tablet 09/19/2018 - 09/29/2018 Pr ovider: Steev Romero MD Diagnosis: 1 tab every 6 hrs prn pain 1 tablet every 6 hours for pain, post op Last Documented On 8 11:08AM By Gaviota Ray ; [facility], [facility] Medications Administered Includes: Administered Medications from this encounter No Administered Medications Recorded Vital Signs Includes: Vital Signs from this encounter Vital Name 03/12/2023 12:50P Height (in) 70 Weight (lb) 280 Body Mass Index 40.2 Body Surface Area 2.4 Note: bb Last Documented: On 03/12/2023 12:51P M ; [facility], [facility] Results Includes: Results discussed during this encounter No Results Recorded For Specified Dates History of Present Illness Includes: History of Present Illness from this encounter HPI VAN JARVIS is a 47 year old male. - Allergy list reviewed - Problem list reviewed - Medication list reviewed - Previous history of new onset pain Injury is not work related or an automotive accident - Patient pain level from 1-10: 3 -2 - Yes, previous treatment. with Dr. Rodriguez - History of Physical Therapy @ [facility] starting 10/26/2022-currently Medications used for this [...] left foot surgery with Dr. Boswell at [facility] in the near future. Today, he informs [...] 11/13/2022 Last Documented On 3 12:45PM ; [facility] No recent change in diet 11/13/2022 Last Documented On 3 12:45PM ; [facility] Not a current smoker. 11/13/2022 Last Documented On 3 12:45PM ; [facility] Not exercising regularly 11/13/2022 Last Documented On 3 12:45PM ; [facility] Not using alcohol 11/13/2022 Last Documented On 3 12:45PM ; [facility] Not using drugs 11/13/2022 Last Documented On 3 12:45PM ; [facility], [facility] Tobacco non-user 11/13/2022 Last Documented On 3 12:45PM ; [facility] Smoking Status Unknown Procedures and Surgical History Includes: Procedures from this encounter Procedures Code Diagnosis Performing Provider Service L ocation Service Date use of tobacco assessment performed 1000F Last Documented On 3 12:45PM ; [facility] no influenza immunization patient refuse d Last Documented On 3 12:45PM ; [facility] EMG was performed 12/19/2021 BUE @ [facility] ~04/24/20 22 BUE @ [facility] [id number] Last Documented On 3 12:45PM ; [facility] an X-ray was performed 09/25/2022 Neck @ [facility] [id number] Last Documented On 3 12:45PM ; [facility] an MRI was performed 10/30/2022 CSpine @ [facility] [id number] Last Documented On 3 12:45PM ; [facility] Surgical History Last Updated History of total knee arthroplasty ACL&M eniscus repair 10/23/2022 Last Documented On 3 12:45PM ; [facility] Medical History Includes: Medical History addressed during this encounter Description Last Updated slipped femoral epiphysis ~ACL&Meniscus repair ~Hearburn/Acid reflux 02/11/2024 Last Documented On 3 12:45PM ; [facility] History of Heartburn / Acid Reflux 11/13 Last Documented On 3 12:45PM ; [facility] History of Sleep Apnea 11/13/2022 Last Documented On 3 12:45PM ; [facility] No recent immunization for flu 3 Last Documented On 3 12:45PM ; [facility] No recent immunization for pneumococcal pneumonia 11/13/2022 Last Documented On 3 12:45PM ; [facility] Past Surgical History: Slipp ed femoral epiphysis ~Wisom teeth ~Varicose veins 11/13/2022 Last Documented On 3 12:45PM ; [facility] Family History Includes: Family History addressed during this encounter Description Last Updated Family history of heart disease 11/13/19 23 Last Documented On 3 12:45PM ; [facility] Family history of diabetes mellitus 05/05 Last Documented On 3 12:45PM ; [facility] Family history of hypertension 9 Last Documented On 3 12:45PM ; [facility] Family history of rheumatoid arthritis 0 05/15/2019 Last Documented On 3 12:45PM ; [facility] Review of Systems Includes: Review of [...] Time Diagnosis Follow Up Tim garcia MD [facility] 3 12:41PM 1:23PM Insurance Includes: Active Insurance Policies Plan Name Member ID Group # Subscriber Relationship Effect hay Dates 1 - Aetna [facility] [id number] VAN JARVIS Self 1 - Unknown Clinical Notes Includes: Clinical Notes from this encounter * Progress note Date Encounter Last Documented by 03/12/2023 Follow Up Last documented on 03/12/2023; 2:09 PM, Tim Ayala MD; [facility], [facility] Active Problems & Conditions - [...] Rodriguez - History of Physical Therapy @ [facility] starting 10/26/2022-currently Medications used for this [...] left foot surgery with Dr. Boswell at [facility] in the near future. Today, he informs [...] refills - Vitamin D (Ergocalciferol) 1.25 MG (36188 UT) Oral Capsule take as directed 35 [...] not progressed It was nice seeing Eduardo quiroga in [...] Functions: EMG 12/19/2021 BUE @ [facility] 04/24/2022 BUE @ [facility]. Imaging: X-Ray: An X-ray was performed 09/25/2022 Neck @ [facility] MRI Scan: An MRI was performed 10/30/2022 [facility] @ [facility]. Counseling/Education - Lose weight Practice Management Use of tobacco assessment performed; No influenza immunization patient refused. Care Team - Nohelia Alex PA-C Notes This dictation was done with voice recognition software and may contain errors and omissions.
--- OUTSIDE RECORDS SUMMARY | 2024-07-17 07:24 | XMS_ITS | Clinical Summary ---
Author Organization [facility] , [facility] Address [address] [place] [address] Phone Care Team Providers Care Gameplay Programmer Name Role Phone Rosario BACA, Kevin Wallis Unavailable [phone] Nohelia Alex PA-C Primary Care Provider [phone] Reason for Visit and Chief Complaint The Chief Complaint is: Low back pain-radiculopathy Problems Includes: Problems addressed during this encounter and other active Problems Current Visit Onset Date Resolved Date Provider Conditio n Status Lower Back Pain 06/09/2024 Tim morfin MD Active Last Documented On 4 3:35PM ; [facility], [facility] Past Visits Onset Date Resolved Date Provider Condition Status Neck Pain 10/23/2022 Tim Kohler MD Active Last Documented On 2 10:11AM ; [facility], [facility] Joint Pain in the Left Knee 12/04/2017 Chandler Al MD Active Last Documented On 8 3:07PM ; [facility], [facility] Plan of Treatment Pending Tests Order Diagnosis Results Due Ordering P rovider Radiology - MRI MRI Cervical Spine 11/06/22 Alma Kohler MD Last Documented On 2 11:31AM ; [facility], [facility] Radiology - MRI MRI Thoracic Spine Radiculopathy, cervical region 02/25/24 Tim Kohler MD Last Documented On 4 8:45AM ; [facility], [facility] Radiology - MRI MRI Cervical Spine Cervicalgia 02/25/24 Tim Kohler MD Last Documented On 4 8:45AM ; [facility], [facility] Radiology - MRI MRI Lumbar Spine Low back pain, unspecified 06/23/24 Tim Kohler MD Last Documented On 4 3:47PM ; [facility] Future Appointments Date Time Location Provi nova Follow Up 08/11/2024 9:45AM [facility] Kohler MD Last Documented On 4 9:59AM ; [facility] Follow Up 10/06/2024 10:15AM [facility] Kohler MD Last Documented On 4 9:20AM ; [facility] Instructions to patient Lose weight Last Documented On 4 3:19PM ; [facility] Assessments Includes: Assessments from this encounter Findings - Overweight - Last Documented On 06/09/2024 3:47PM ; [facility] Instructions Includes: Instructions from this encounter Instructions to patient Lose weight Last Documented On 4 3:19PM ; [facility] Medical Equipment - Implanted Devices Includes: Current Devices No Medical Equipment Recorded Medications Includes: Medications discussed during this encounter and other current Medications Current Medications (continue as prescribed) Adult Aspirin Regimen 81 MG Oral Tablet Delayed Releas e 04/07/2024 Provider: Diagnosis: Last Documented On 4 1:05PM By Tim Kohler ; [facility] Vitamin D (Ergocalciferol) 1.25 MG (61129 UT) Oral Cap apryl 03/31/2024 Provider: Diagnosis: Last Documented On 4 1:05PM By Tim [facility] Omeprazole 40 MG Oral Capsule Delayed Release 02/27/20 Provider: Diagnosis: Last Documented On 4 1:05PM By Tim [facility] Atorvastatin Calcium 10 MG Oral Tablet 02/10/2024 Pr ovider: Diagnosis: Last Documented On 4 1:05PM By Tim Kohler ; [facility] Famotidine 40 MG Oral Tablet 02/10/2024 Provider: Diagnosis: Last Documented On 4 1:05PM By Tim Kohler ; [facility] Metoprolol Succinate ER 25 M G Oral Tablet Extended Release 24 Hour 02/03/2024 Provider: Diagnosis: Last Documented On 4 1:05PM By Tim Kohler ; [facility] Meclizine HCl 25 MG Oral Tablet 01/22/2024 Provider: Diagnosis: Last Documented On 4 1:06PM By Tim Kohler ; [facility] Past Medications on file Vitamin D (Ergocalciferol) 1 .25 MG (44250 UT) Oral Capsule 09/10/2023 - 10/15/2023 Provider: Diagnosis: Last Documented On 3 9:07AM By Tim Kohler ; [facility] Omeprazole 40 MG Oral Capsule Delayed Release 09/10/20 23 - 12/09/2023 Provider: Diagnosis: Last Documented On 3 9:06AM By Tim Kohler ; [facility] Keflex 500MG Oral Capsule 10/04/2018 - 10/11/2018 Prov ider: Steve Romero MD Diagnosis: three times a day Last Documented On 8 9:52AM By Lilian Mccauley ; [facility] [place] 7.5-325MG Oral Tablet 09/19/2018 - 09/29/2018 Pr ovider: Steve Romero MD Diagnosis: 1 tab every 6 hrs prn pain 1 tablet every 6 hours for pain, post op Last Documented On 8 11:08AM By Gaviota Ray ; [facility] Medications Administered Includes: Administered Medications from this encounter No Administered Medications Recorded Vital Signs Includes: Vital Signs from this encounter Vital Name 06/09/2024 03:20P Height (in) 70 Weight (lb) 290 Body Mass Index 41.6 Body Surface Area 2.4 Note: HL Last Documented: On 06/09/2024 3:20PM ; [facility] Results Includes: Results discussed during [...] History of Physical Therapy @ [facility] starting 10/26/2022-currently - History of Home Exercise - - Review of medications documented Medications used for this condition: This is a 48-year-old man following up with me. I see him regularly for myelopathy checkups. 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 He recently underwent an EMG in his bilateral lower extremities that show some bilateral sural nerve problems in the wondering if there has a contribution from his lumbar spine as well. Social History Description Last Updated Caffeine use 11/13/2022 Last Documented On 4 3:19PM ; [facility], [facility] No recent change in diet 11/13/2022 Last Documented On 4 3:19PM ; [facility], [facility] Not a current smoker. 11/13/2022 Last Documented On 4 3:19PM ; [facility] Not exercising regularly 11/13/2022 Last Documented On 4 3:19PM ; [facility], [facility] Not using alcohol 11/13/2022 Last Documented On 4 3:19PM ; [facility] Not using drugs 11/13/2022 Last Documented On 4 3:19PM ; [facility] Tobacco non-user 11/13/2022 Last Documented On 4 3:19PM ; [facility] Smoking Status Unknown Procedures and Surgical History Includes: Procedures from this encounter Procedures Code Diagnosis Performing Provider Service Location Service Date X-RAY EXAM OF LOWER SPINE 4-5 VIEWS 44699 Other low back pain Tim Kohler MD [facility] 06/09/2024 Last Documented On 4 2:17PM ; [facility], [facility] use of tobacco assessment performed 1000F Last Documented On 4 3:19PM ; [facility] no influenza immunization patient refuse d Last Documented On 4 3:19PM ; [facility] review of medications documented 1160F Last Documented On 4 3:19PM ; [facility] EMG was performed 12/19/2021 BUE @ [facility] ~04/24/20 BUE @ [facility] [id number] Last Documented On 4 3:19PM ; [facility] an X-ray was performed 09/25 Neck @ [facility] ~03/12/2023 Neck @ [facility] ~06/09/2024 LSpine @ [facility] [id number] Last Documented On 4 3:21PM ; [facility] an MRI was performed 022 CSpine @ [facility] ~03/11/2024 TSpine @ [facility] ~03/11/2024 CSpine @ [facility] [id number] Last Documented On 4 3:19PM ; [facility] Surgical History Last Updated History of total knee arthroplasty ACL&M eniscus repair 10/23/2022 Last Documented On 4 3:19PM ; [facility] Medical History Includes: Medical History addressed during this encounter Description Last Updated 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 Last Documented On 4 3:19PM ; [facility] History of Heartburn / Acid Reflux 11/13 Last Documented On 4 3:19PM ; [facility] History of Sleep Apnea 11/13/2022 Last Documented On 4 3:19PM ; [facility] No recent immunization for flu 3 Last Documented On 4 3:19PM ; [facility] No recent immunization for pneumococcal pneumonia 11/13/2022 Last Documented On 4 3:19PM ; [facility] Past Surgical History: slipp ed femoral epiphysis, wisom teeth, varicose veins 11/13/2022 Last Documented On 4 3:19PM ; [facility] Family History Includes: Family History addressed during this encounter Description Last Updated Family history of heart disease 11/13/19 23 Last Documented On 4 3:19PM ; [facility] Family history of diabetes mellitus 05/05 Last Documented On 4 3:19PM ; [facility] Family history of hypertension 9 Last Documented On 4 3:19PM ; [facility] Family history of rheumatoid arthritis 0 05/15/2019 Last Documented On 4 3:19PM ; [facility] Review of Systems Includes: Review [...] Check-Out Time Diagnosis NEW PROBLEM/EST PT Tim morfin MD [facility] 06/09/20 24 2:58PM 3:35PM Overweight Insurance Includes: Active Insurance Policies Plan Name Member ID Group # Subscriber Relationship Effect hay Dates 1 - [employer]na [facility] [id number] VAN JARVIS Self 1 - Unknown Clinical Notes Includes: Clinical Notes from this encounter * Progress note Date Encounter Last Documented by 06/09/2024 NEW PROBLEM/EST PT Last document ed on 06/09/2024; 3:47 PM, Tim Kohler MD; [facility], [facility] Active Problems & Conditions - Joint [...] History of Physical Therapy @ [facility] starting 10/26/2022-currently - History of Home Exercise - - Review of medications documented Medications used for this condition: This is a 48-year-old man following up with me. I see him regularly for myelopathy checkups. Today, he tells me that the fire marshal refinery who he has been following with for [...] refills - Vitamin D (Ergocalciferol) 1.25 MG (78697 UT) Oral Capsule take as directed 98 [...] Studies: Neuro-Electrical Functions: EMG 12/19/2021 BUE @ [facility] 04/24/2022 BUE @ [facility]. Imaging: X-Ray: An X-ray was performed 09/25/2022 Neck @ [facility] 03/12/2023 Neck @ [facility] 06/09/2024 LSpine @ [facility]. MRI Scan: An MRI was performed 10/30/2022 CSpine @ [facility] 03/11/2024 TSpine @ [facility] 03/11/2024 CSpine @ [facility]. Counseling/Education - Tobacco non-user - Use [...]
--- OUTSIDE RECORDS SUMMARY | 2024-07-17 07:24 | XMS_ITS | Clinical Summary ---
Author Organization [facility] , [facility] Address [address] [place] [address] Phone Care Team Providers Care Plant Protection Officer Name Role Phone Rosario BACA, Kevin Wallis Unavailable [phone] Nohelia Alex PA-C Primary Care Provider [phone] Reason for Visit and Chief Complaint The Chief Complaint is: Cervical pain Problems Includes: Problems addressed during this encounter and other active Problems Current Visit Onset Date Resolved Date Provider Conditio n Status Lower Back Pain 06/09/2024 Tim morfin MD Active Last Documented On 4 3:35PM ; [facility], [facility] Past Visits Onset Date Resolved Date Provider Condition Status Neck Pain 10/23/2022 Tim Kohler MD Active Last Documented On 2 10:11AM ; [facility], [facility] Joint Pain in the Left Knee 12/04/2017 Chandler Al MD Active Last Documented On 8 3:07PM ; [facility], [facility] Plan of Treatment Pending Tests Order Diagnosis Results Due Ordering P rovider Radiology - MRI MRI Cervical Spine 11/06/22 Alma Kohler MD Last Documented On 2 11:31AM ; [facility], [facility] Radiology - MRI MRI Thoracic Spine Radiculopathy, cervical region 02/25/24 Tim Kohler MD Last Documented On 4 8:45AM ; [facility], [facility] Radiology - MRI MRI Cervical Spine Cervicalgia 02/25/24 Tim Kohler MD Last Documented On 4 8:45AM ; [facility], [facility] Radiology - MRI MRI Lumbar Spine Low back pain, unspecified 06/23/24 Tim Kohler MD Last Documented On 4 3:47PM ; [facility], [facility] Future Appointments Date Time Location Provi nova Follow Up 08/11/2024 9:45AM [facility] Kohler MD Last Documented On 4 9:59AM ; [facility], [facility] Follow Up 10/06/2024 10:15AM [facility] Kohler MD Last Documented On 4 9:20AM ; [facility], [facility] Instructions to patient Lose weight Last Documented On 4 8:52AM ; [facility], [facility] Assessments Includes: Assessments from this encounter Findings - Overweight - Last Documented On 04/07/2024 1:06PM ; [facility], [facility] Instructions Includes: Instructions from this encounter Instructions to patient Lose weight Last Documented On 4 8:52AM ; [facility] Medical Equipment - Implanted Devices Includes: Current Devices No Medical Equipment Recorded Medications Includes: Medications discussed during this encounter and other current Medications Current Medications (continue as prescribed) Adult Aspirin Regimen 81 MG Oral Tablet Delayed Releas e 04/07/2024 Provider: Diagnosis: Last Documented On 4 1:05PM By Tim Kohler ; [facility], [facility] Vitamin D (Ergocalciferol) 1.25 MG (99914 UT) Oral Cap apryl 03/31/2024 Provider: Diagnosis: Last Documented On 4 1:05PM By Tim Kohler ; [facility], [facility] Omeprazole 40 MG Oral Capsule Delayed Release 02/27/20 Provider: Diagnosis: Last Documented On 4 1:05PM By Tim Kohler ; [facility], [facility] Atorvastatin Calcium 10 MG Oral Tablet 02/10/2024 Pr ovider: Diagnosis: Last Documented On 4 1:05PM By Tim Kohler ; [facility], [facility] Famotidine 40 MG Oral Tablet 02/10/2024 Provider: Diagnosis: Last Documented On 4 1:05PM By Tim Kohler ; [facility] Metoprolol Succinate ER 25 M G Oral Tablet Extended Release 24 Hour 02/03/2024 Provider: Diagnosis: Last Documented On 4 1:05PM By Tim Kohler ; [facility], [facility] Meclizine HCl 25 MG Oral Tablet 01/22/2024 Provider: Diagnosis: Last Documented On 4 1:06PM By Tim Kohler ; [facility], [facility] Past Medications on file Vitamin D (Ergocalciferol) 1 .25 MG (18051 UT) Oral Capsule 09/10/2023 - 10/15/2023 Provider: Diagnosis: Last Documented On 3 9:07AM By Tim Kohler ; [facility], [facility] Omeprazole 40 MG Oral Capsule Delayed Release 09/10/20 23 - 12/09/2023 Provider: Diagnosis: Last Documented On 3 9:06AM By Tim Kohler ; [facility] Keflex 500MG Oral Capsule 10/04/2018 - 10/11/2018 Prov ider: Steve Romero MD Diagnosis: three times a day Last Documented On 8 9:52AM By Lilian Mccauley ; [facility], [facility] [place] 7.5-325MG Oral Tablet 09/19/2018 - 09/29/2018 Pr ovider: Steve Romero MD Diagnosis: 1 tab every 6 hrs prn pain 1 tablet every 6 hours for pain, post op Last Documented On 8 11:08AM By Gaviota Ray ; [facility], [facility] Medications Administered Includes: Administered Medications from this encounter No Administered Medications Recorded Vital Signs Includes: Vital Signs from this encounter Vital Name 04/07/2024 08:58A Height (in) 70 Weight (lb) 285.6 Body Mass Index 41 Body Surface Area (m2) 2.4 Note: lc Last Documented: On 04/07/2024 9:03AM ; [facility], [facility] Results Includes: Results discussed [...] - History of Physical Therapy @ [facility] starting 10/26/2022-currently - History of Home [...] really not too bad at this time. Social History Description Last Updated Caffeine use 11/13/2022 Last Documented On 4 8:52AM ; [facility], [facility] No recent change in diet 11/13/2022 Last Documented On 4 8:52AM ; [facility], [facility] Not a current smoker. 11/13/2022 Last Documented On 4 8:52AM ; [facility], [facility] Not exercising regularly 11/13/2022 Last Documented On 4 8:52AM ; [facility], [facility] Not using alcohol 11/13/2022 Last Documented On 4 8:52AM ; [facility], [facility] Not using drugs 11/13/2022 Last Documented On 4 8:52AM ; [facility], [facility] Tobacco non-user 11/13/2022 Last Documented On 4 8:52AM ; [facility], [facility] Smoking Status Unknown Procedures and Surgical History Includes: Procedures from this encounter Procedures Code Diagnosis Performing Provider Service L ocation Service Date use of tobacco assessment performed 1000F Last Documented On 4 8:52AM ; [facility], [facility] no influenza immunization patient refuse d Last Documented On 4 8:52AM ; [facility], [facility] review of medications documented 1160F Last Documented On 4 8:52AM ; [facility], [facility] EMG was performed 12/19/2021 BUE @ [facility] ~04/24/20 22 BUE @ [facility] [id number] Last Documented On 4 8:52AM ; [facility], [facility] an X-ray was performed 09/25/2022 Neck @ [facility] ~ Neck @ [facility] [id number] Last Documented On 4 8:52AM ; [facility] an MRI was performed 022 CSpine @ [facility] ~03/11/2024 TSpine @ [facility] ~03/11/2024 CSpine @ [facility] [id number] Last Documented On 4 8:53AM ; [facility], [facility] Surgical History Last Updated History of total knee arthroplasty ACL&M eniscus repair 10/23/2022 Last Documented On 4 8:52AM ; [facility] Medical History Includes: Medical History addressed during this encounter Description Last Updated 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 Last Documented On 4 8:52AM ; [facility] History of Heartburn / Acid Reflux 11/13 Last Documented On 4 8:52AM ; [facility] History of Sleep Apnea 11/13/2022 Last Documented On 4 8:52AM ; [facility] No recent immunization for flu 3 Last Documented On 4 8:52AM ; [facility] No recent immunization for pneumococcal pneumonia 11/13/2022 Last Documented On 4 8:52AM ; [facility] Past Surgical History: slipp ed femoral epiphysis, wisom teeth, varicose veins 11/13/2022 Last Documented On 4 8:52AM ; [facility] Family History Includes: Family History addressed during this encounter Description Last Updated Family history of heart disease 11/13/19 23 Last Documented On 4 8:52AM ; [facility] Family history of diabetes mellitus 05/05 Last Documented On 4 8:52AM ; [facility] Family history of hypertension 9 Last Documented On 4 8:52AM ; [facility] Family history of rheumatoid arthritis 0 05/15/2019 Last Documented On 4 8:52AM ; [facility] Review of Systems Includes: Review of [...] Time Diagnosis Follow Up Tim garcia MD [facility] 4 8:48AM 9:13AM Overweight Insurance Includes: Active Insurance Policies Plan Name Member ID Group # Subscriber Relationship Effect hay Dates 1 - Aetna [facility] [id number] [place] Self 1 - Unknown Clinical Notes Includes: Clinical Notes from this encounter * Progress note Date Encounter Last Documented by 04/07/2024 Follow Up Last documented on 04/07/2024; 1:06 PM, Tim Ayala MD; [facility], [facility] Active Problems & Conditions - [...] - History of Physical Therapy @ [facility] starting 10/26/2022-currently - History of Home [...] refills - Vitamin D (Ergocalciferol) 1.25 MG (16323 UT) Oral Capsule take as directed 98 [...] Auditory Function Testing: EMG 12/19/2021 BUE @ [facility] 04/24/2022 BUE @ [facility]. Imaging: Intravascular Ultrasound (Coronary Vessel/Graft): An X-ray was performed 09/25/2022 Neck @ [facility] 03/12/2023 Neck @ [facility]. CT Scan Lower Extremity Foot: An MRI was performed 10/30/2022 CSpine @ [facility] 03/11/2024 TSpine @ [facility] 03/11/2024 CSpine @ [facility]. Counseling/Education - Tobacco non-user - Use of tobacco assessment performed - Lose weight Practice Management Use of tobacco assessment performed Review of medications documented; No influenza immunization patient refused. Care Team - Nohelia Alex PA-C Notes This dictation was done with voice recognition software and may contain errors and omissions.
--- OUTSIDE RECORDS SUMMARY | 2024-07-17 07:24 | XMS_ITS | Clinical Summary ---
Author Organization [facility] , [facility] Address [address] [place] [address] Phone Care Team Providers Care Vegetable Vendor Name Role Phone Rosario BACA, Kevin Wallis Unavailable [phone] Nohelia Alex PA-C Primary Care Provider [phone] Reason for Visit and Chief Complaint The Chief Complaint is: Cervical pain Problems Includes: Problems addressed during this encounter and other active Problems Current Visit Onset Date Resolved Date Provider Conditio n Status Lower Back Pain 06/09/2024 Tim morfin MD Active Last Documented On 4 3:35PM ; [facility] Past Visits Onset Date Resolved Date Provider Condition Status Neck Pain 10/23/2022 Tim Kohler MD Active Last Documented On 2 10:11AM ; [facility] Joint Pain in the Left Knee 12/04/2017 Chandler Al MD Active Last Documented On 8 3:07PM ; [facility] Plan of Treatment Pending Tests Order Diagnosis Results Due Ordering P rovider Radiology - MRI MRI Cervical Spine 11/06/22 Alma Kohler MD Last Documented On 2 11:31AM ; [facility] Radiology - MRI MRI Thoracic Spine Radiculopathy, cervical region 02/25/24 Tim Kohler MD Last Documented On 4 8:45AM ; [facility], [facility] Radiology - MRI MRI Cervical Spine Cervicalgia 02/25/24 Tim Kohler MD Last Documented On 4 8:45AM ; [facility] Radiology - MRI MRI Lumbar Spine Low back pain, unspecified 06/23/24 Tim Kohler MD Last Documented On 4 3:47PM ; [facility], [facility] Future Appointments Date Time Location Provi nova Follow Up 08/11/2024 9:45AM [facility] Kohler MD Last Documented On 4 9:59AM ; [facility], [facility] Follow Up 10/06/2024 10:15AM [facility] Kohler MD Last Documented On 4 9:20AM ; [facility], [facility] Instructions to patient Lose weight Last Documented On 3 9:00AM ; [facility], [facility] Assessments Includes: Assessments from this encounter Findings - Overweight - Last Documented On 09/10/2023 11:37AM ; [facility], [facility] Instructions Includes: Instructions from this encounter Instructions to patient Lose weight Last Documented On 3 9:00AM ; [facility], [facility] Medical Equipment - Implanted Devices Includes: Current Devices No Medical Equipment Recorded Medications Includes: Medications discussed during this encounter and other current Medications Current Medications (continue as prescribed) Adult Aspirin Regimen 81 MG Oral Tablet Delayed Releas e 04/07/2024 Provider: Diagnosis: Last Documented On 4 1:05PM By Tim Kohler ; [facility] Vitamin D (Ergocalciferol) 1.25 MG (67947 UT) Oral Cap apryl 03/31/2024 Provider: Diagnosis: Last Documented On 4 1:05PM By Tim Kohler ; [facility], [facility] Omeprazole 40 MG Oral Capsule Delayed Release 02/27/20 Provider: Diagnosis: Last Documented On 4 1:05PM By Tim Kohler ; [facility], [facility] Atorvastatin Calcium 10 MG Oral Tablet 02/10/2024 Pr ovider: Diagnosis: Last Documented On 4 1:05PM By Tim Kohler ; [facility], [facility] Famotidine 40 MG Oral Tablet 02/10/2024 Provider: Diagnosis: Last Documented On 4 1:05PM By Tim Kohler ; [facility] Metoprolol Succinate ER 25 M G Oral Tablet Extended Release 24 Hour 02/03/2024 Provider: Diagnosis: Last Documented On 4 1:05PM By Tim Kohler ; [facility] Meclizine HCl 25 MG Oral Tablet 01/22/2024 Provider: Diagnosis: Last Documented On 4 1:06PM By Tim Kohler ; [facility] Past Medications on file Vitamin D (Ergocalciferol) 1 .25 MG (62708 UT) Oral Capsule 09/10/2023 - 10/15/2023 Provider: Diagnosis: Last Documented On 3 9:07AM By Tim Kohler ; [facility] Omeprazole 40 MG Oral Capsule Delayed Release 09/10/20 23 - 12/09/2023 Provider: Diagnosis: Last Documented On 3 9:06AM By Tim Kohler ; [facility] Keflex 500MG Oral Capsule 10/04/2018 - 10/11/2018 Prov ider: Steve Romero MD Diagnosis: three times a day Last Documented On 8 9:52AM By Lilian Mccauley ; [facility], [facility] [place] 7.5-325MG Oral Tablet 09/19/2018 - 09/29/2018 Pr ovider: Steve Romero MD Diagnosis: 1 tab every 6 hrs prn pain 1 tablet every 6 hours for pain, post op Last Documented On 8 11:08AM By Gaviota Ray ; [facility], [facility] Medications Administered Includes: Administered Medications from this encounter No Administered Medications Recorded Vital Signs Includes: Vital Signs from this encounter Vital Name 09/10/2023 09:05A Height (in) 70 Weight (lb) 290 Body Mass Index 41.6 Body Surface Area 2.4 Note: ct Last Documented: On 09/10/2023 9:05AM ; [facility] Results Includes: Results discussed during this encounter [...] Rodriguez - History of Physical Therapy @ [facility] starting 10/26/2022-currently Medications used for this condition: This is a very pleasant 47-year-old man here for a 6-month myelopathy checkup. He denies any significant neck pain or any significant changes in his fine motor control in his hands or any significant changes in his balance. As a side note, he did undergo a fairly extensive left foot surgery with a ten pin bowling centre manager at [facility]. Social History Description Last Updated Caffeine use 11/13/2022 Last Documented On 3 9:00AM ; [facility], [facility] No recent change in diet 11/13/2022 Last Documented On 3 9:00AM ; [facility], [facility] Not a current smoker. 11/13/2022 Last Documented On 3 9:00AM ; [facility] Not exercising regularly 11/13/2022 Last Documented On 3 9:00AM ; [facility] Not using alcohol 11/13/2022 Last Documented On 3 9:00AM ; [facility] Not using drugs 11/13/2022 Last Documented On 3 9:00AM ; [facility] Tobacco non-user 11/13/2022 Last Documented On 3 9:00AM ; [facility] Smoking Status Unknown Procedures and Surgical History Includes: Procedures from this encounter Procedures Code Diagnosis Performing Provider Service L ocation Service Date use of tobacco assessment performed 1000F Last Documented On 3 9:00AM ; [facility] no influenza immunization patient refuse d Last Documented On 3 9:00AM ; [facility] review of medications documented 1160F Last Documented On 3 9:03AM ; [facility], [facility] EMG was performed 12/19/2021 BUE @ [facility] ~04/24/20 BUE @ [facility] [id number] Last Documented On 3 9:00AM ; [facility] an X-ray was performed 09/25/2022 Neck @ [facility] [id number] Last Documented On 3 9:00AM ; [facility] an MRI was performed 10/30/2022 CSpine @ [facility] [id number] Last Documented On 3 9:00AM ; [facility] Surgical History Last Updated History of total knee arthroplasty ACL&M eniscus repair 10/23/2022 Last Documented On 3 9:00AM ; [facility] Medical History Includes: Medical History addressed during this encounter Description Last Updated slipped femoral epiphysis ~Hearburn/Acid reflux 09/10/2023 Last Documented On 3 11:37AM ; [facility] History of Heartburn / Acid Reflux 11/13 Last Documented On 3 9:00AM ; [facility] History of Sleep Apnea 11/13/2022 Last Documented On 3 9:00AM ; [facility] No recent immunization for flu 3 Last Documented On 3 9:00AM ; [facility] No recent immunization for pneumococcal pneumonia 11/13/2022 Last Documented On 3 9:00AM ; [facility] Past Surgical History: Slipp ed femoral epiphysis ~Wisom teeth ~Varicose veins 11/13/2022 Last Documented On 3 9:00AM ; [facility] Family History Includes: Family History addressed during this encounter Description Last Updated Family history of heart disease 11/13/19 Last Documented On 3 9:00AM ; [facility] Family history of diabetes mellitus 05/05 Last Documented On 3 9:00AM ; [facility] Family history of hypertension 9 Last Documented On 3 9:00AM ; [facility] Family history of rheumatoid arthritis 0 05/15/2019 Last Documented On 3 9:00AM ; [facility] Review of Systems Includes: Review [...] Time Diagnosis Follow Up Tim garcia MD [facility] 3 8:58AM 9:18AM Overweight Insurance Includes: Active Insurance Policies Plan Name Member ID Group # Subscriber Relationship Effect hay Dates 1 - [employer] [facility] [id number] [place] Self 1 - Unknown Clinical Notes Includes: Clinical Notes from this encounter * Progress note Date Encounter Last Documented by 09/10/2023 Follow Up Last documented on 09/10/2023; 11:37 AM, Tim Ayala MD; [facility], [facility] Active Problems & Conditions - Joint Pain [...] Rodriguez - History of Physical Therapy @ [facility] starting 10/26/2022-currently Medications used for this condition: This is a very pleasant 47-year-old man here for a 6-month myelopathy checkup. He denies any significant neck pain or any significant changes in his fine motor control in his hands or any significant changes in his balance. As a side note, he did undergo a fairly extensive left foot surgery with a ten pin bowling centre manager at [facility]. Current Medication - Adult Aspirin Regimen 81 MG Oral Tablet Delayed Release take as directed 0 days, 0 refills - Atorvastatin Calcium 10 MG Oral Tablet 90 days, 0 refills - EQL [place] 3 Fish Oil 1000 MG Oral Capsule take as directed 0 days, 0 refills - Famotidine 40 MG Oral Tablet 90 days, 0 refills - Metoprolol Succinate ER 25 MG Oral Tablet Extended Release 24 Hour 30 days, 0 refills - Omeprazole 40 MG Oral Capsule Delayed Release 90 days, 0 refills - Vitamin D (Ergocalciferol) 1.25 MG (86796 UT) Oral Capsule take as directed 35 [...] hands It was very nice seeing Eduardo junaid in the office. Since we have now [...] Studies: Neuro-Electrical Functions: EMG 12/19/2021 BUE @ [facility] 04/24/2022 BUE @ [facility]. Imaging: X-Ray: An X-ray was performed 09/25/2022 Neck @ [facility]. MRI Scan: An MRI was performed 10/30/2022 [facility] @ [facility]. Counseling/Education - Lose weight Practice Management Use of tobacco assessment performed Review of medications documented; No influenza immunization patient refused. Care Team - Nohelia Alex PA-C Notes This dictation was done with voice recognition software and may contain errors and omissions.
--- OUTSIDE RECORDS SUMMARY | 2024-07-17 07:24 | XMS_ITS ---
Care Plan - [facility], [facility] Created on: July 17, 2024 VAN JARVIS : 1975 Sex: Male Author Organization [facility] Address [address] [place] [id number] Phone Care Team Providers Care Usability Specialist Name Role Phone Rosario BACA, Kevin Wallis Unavailable [phone] Isai SIMON, Nohelia Primary Care Provider [phone]
--- OUTSIDE RECORDS SUMMARY | 2024-07-17 07:24 | XMS_ITS | Clinical Summary ---
Author Organization [facility] , [facility] Address [address] [place] [address] Phone Care Team Providers Care Guest Service Representative Name Role Phone Rosario BACA, Kevin Wallis Unavailable [phone] Nohelia Alex PA-C Primary Care Provider [phone] Reason for Visit and Chief Complaint The Chief Complaint is: Cervical pain Problems Includes: Problems addressed during this encounter and other active Problems Current Visit Onset Date Resolved Date Provider Conditio n Status Lower Back Pain 06/09/2024 Tim morfin MD Active Last Documented On 4 3:35PM ; [facility], [facility] Past Visits Onset Date Resolved Date Provider Condition Status Neck Pain 10/23/2022 Tim Kohler MD Active Last Documented On 2 10:11AM ; [facility], [facility] Joint Pain in the Left Knee 12/04/2017 Chandler Al MD Active Last Documented On 8 3:07PM ; [facility], [facility] Plan of Treatment Pending Tests Order Diagnosis Results Due Ordering P rovider Radiology - MRI MRI Cervical Spine 11/06/22 Alma Kohlre MD Last Documented On 2 11:31AM ; [facility], [facility] Radiology - MRI MRI Thoracic Spine Radiculopathy, cervical region 02/25/24 Tim Kohler MD Last Documented On 4 8:45AM ; [facility], [facility] Radiology - MRI MRI Cervical Spine Cervicalgia 02/25/24 Tim Kohler MD Last Documented On 4 8:45AM ; [facility], [facility] Radiology - MRI MRI Lumbar Spine Low back pain, unspecified 06/23/24 Tim Kohler MD Last Documented On 4 3:47PM ; [facility], [facility] Future Appointments Date Time Location Provi nova Follow Up 08/11/2024 9:45AM [facility] Kohler MD Last Documented On 4 9:59AM ; [facility], [facility] Follow Up 10/06/2024 10:15AM [facility] Kohler MD Last Documented On 4 9:20AM ; [facility] Instructions to patient Lose weight Last Documented On 4 1:40PM ; [facility], [facility] Assessments Includes: Assessments from this encounter Findings - Overweight - Last Documented On 02/12/2024 8:45AM ; [facility], [facility] Instructions Includes: Instructions from this encounter Instructions to patient Lose weight Last Documented On 4 1:40PM ; [facility], [facility] Medical Equipment - Implanted Devices Includes: Current Devices No Medical Equipment Recorded Medications Includes: Medications discussed during this encounter and other current Medications Current Medications (continue as prescribed) Adult Aspirin Regimen 81 MG Oral Tablet Delayed Releas e 04/07/2024 Provider: Diagnosis: Last Documented On 4 1:05PM By Tim Kohler ; [facility], [facility] Vitamin D (Ergocalciferol) 1.25 MG (79442 UT) Oral Cap apryl 03/31/2024 Provider: Diagnosis: Last Documented On 4 1:05PM By Tim Kohler ; [facility] Omeprazole 40 MG Oral Capsule Delayed Release 02/27/20 Provider: Diagnosis: Last Documented On 4 1:05PM By Tim Kohler ; [facility], [facility] Atorvastatin Calcium 10 MG Oral Tablet 02/10/2024 Pr ovider: Diagnosis: Last Documented On 4 1:05PM By Tim Kohler ; [facility] Famotidine 40 MG Oral Tablet 02/10/2024 Provider: Diagnosis: Last Documented On 4 1:05PM By Tim Kohler ; [facility] Metoprolol Succinate ER 25 M G Oral Tablet Extended Release 24 Hour 02/03/2024 Provider: Diagnosis: Last Documented On 4 1:05PM By Tim Kohler ; [facility], [facility] Meclizine HCl 25 MG Oral Tablet 01/22/2024 Provider: Diagnosis: Last Documented On 4 1:06PM By Tim Kohler ; [facility], [facility] Past Medications on file Vitamin D (Ergocalciferol) 1 .25 MG (45723 UT) Oral Capsule 09/10/2023 - 10/15/2023 Provider: Diagnosis: Last Documented On 3 9:07AM By Tim Kohler ; [facility], [facility] Omeprazole 40 MG Oral Capsule Delayed Release 09/10/20 23 - 12/09/2023 Provider: Diagnosis: Last Documented On 3 9:06AM By Tim Kohler ; [facility] Keflex 500MG Oral Capsule 10/04/2018 - 10/11/2018 Prov ider: Steve Romero MD Diagnosis: three times a day Last Documented On 8 9:52AM By Lilain Mccauley ; [facility], [facility] Dixon 7.5-325MG Oral Tablet 09/19/2018 - 09/29/2018 Pr ovider: Steve Romero MD Diagnosis: 1 tab every 6 hrs prn pain 1 tablet every 6 hours for pain, post op Last Documented On 8 11:08AM By Gaviota Ray ; [facility], [facility] Medications Administered Includes: Administered Medications from this encounter No Administered Medications Recorded Vital Signs Includes: Vital Signs from this encounter Vital Name 02/11/2024 01:40P Height (in) 70 Weight (lb) 290 Body Mass Index 41.6 Body Surface Area 2.4 Note: HL Last Documented: On 02/11/2024 1:40PM ; [facility] Results Includes: Results discussed during this [...] Rodriguez - History of Physical Therapy @ [facility] starting 10/26/2022-currently Medications used for this condition: [...] his back. He is following with a electrician sound to discuss whether or not there is any concern for abdominal aortic aneurysm. Social History Description Last Updated Caffeine use 11/13/2022 Last Documented On 4 1:40PM ; [facility], [facility] No recent change in diet 11/13/2022 Last Documented On 4 1:40PM ; [facility], [facility] Not a current smoker. 11/13/2022 Last Documented On 4 1:40PM ; [facility], [facility] Not exercising regularly 11/13/2022 Last Documented On 4 1:40PM ; [facility], [facility] Not using alcohol 11/13/2022 Last Documented On 4 1:40PM ; [facility], [facility] Not using drugs 11/13/2022 Last Documented On 4 1:40PM ; [facility] Tobacco non-user 11/13/2022 Last Documented On 4 1:40PM ; [facility], [facility] Smoking Status Unknown Procedures and Surgical History Includes: Procedures from this encounter Procedures Code Diagnosis Performing Provider Service L ocation Service Date use of tobacco assessment performed 1000F Last Documented On 4 1:40PM ; [facility], [facility] no influenza immunization patient refuse d Last Documented On 4 1:40PM ; [facility], [facility] review of medications documented 1160F Last Documented On 4 1:40PM ; [facility], [facility] EMG was performed 12/19/2021 [facility] @ [facility] ~04/24/20 [facility] @ [facility] [id number] Last Documented On 4 1:40PM ; [facility] an X-ray was performed 09/25/2022 [place] @ [facility] ~ [place] [facility] [id number] Last Documented On 4 8:44AM ; [facility] an MRI was performed 10/30/2022 CSpine @ [facility] [id number] Last Documented On 4 1:40PM ; [facility] Surgical History Last Updated History of total knee arthroplasty ACL&M eniscus repair 10/23/2022 Last Documented On 4 1:40PM ; [facility] Medical History Includes: Medical History addressed during this encounter Description Last Updated 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 Last Documented On 4 8:45AM ; [facility] History of Heartburn / Acid Reflux 11/13 Last Documented On 4 1:40PM ; [facility] History of Sleep Apnea 11/13/2022 Last Documented On 4 1:40PM ; [facility] No recent immunization for flu 3 Last Documented On 4 1:40PM ; [facility] No recent immunization for pneumococcal pneumonia 11/13/2022 Last Documented On 4 1:40PM ; [facility] Past Surgical History: slipp ed femoral epiphysis, wisom teeth, varicose veins 11/13/2022 Last Documented On 4 1:40PM ; [facility] Family History Includes: Family History addressed during this encounter Description Last Updated Family history of heart disease 11/13/19 23 Last Documented On 4 1:40PM ; [facility] Family history of diabetes mellitus 05/05 Last Documented On 4 1:40PM ; [facility] Family history of hypertension 9 Last Documented On 4 1:40PM ; [facility] Family history of rheumatoid arthritis 0 05/15/2019 Last Documented On 4 1:40PM ; [facility] Review of Systems Includes: Review of [...] Time Diagnosis Follow Up Tim garcia MD [facility] 4 1:33PM 1:55PM Overweight Insurance Includes: Active Insurance Policies Plan Name Member ID Group # Subscriber Relationship Effect hay Dates 1 - [employer] [facility] [id number] [place] Self 1 - Unknown Clinical Notes Includes: Clinical Notes from this encounter * Progress note Date Encounter Last Documented by 02/11/2024 Follow Up Last documented on 02/12/2024; 8:45 AM, Tim Ayala MD; [facility], [facility] Active Problems & Conditions - Joint [...] Rodriguez - History of Physical Therapy @ [facility] starting 10/26/2022-currently Medications used for this condition: [...] his back. He is following with a electrician sound to discuss whether or not there is any concern for abdominal aortic aneurysm. Current Medication - Adult Aspirin Regimen 81 MG Oral Tablet Delayed Release take as directed 0 days, 0 refills - Atorvastatin Calcium 10 MG Oral Tablet 90 days, 0 refills - EQL [place] 3 Fish Oil 1000 MG Oral Capsule [...] Triceps reflex is 3+ bilaterally Weakly positive Lnaier's bilaterally, similar to prior exams x3 Patient [...] him that I would make sure his electrician sound as investigating him for an aneurysm in [...] Studies: Neuro-Electrical Functions: EMG 12/19/2021 [facility] @ [facility] 04/24/2022 [facility] @ [facility]. Imaging: X-Ray: An X-ray was performed 09/25/2022 Neck @ [facility] 03/12/2023 Neck @ [facility]. MRI Scan: An MRI was performed 10/30/2022 [facility] @ [facility]. Counseling/Education - Lose weight Plan StartCited [...]
--- NOTE | 2024-07-17 07:25 | CT_ITS ---
FINAL REPORT TECHNIQUE: Thin section axial CT images of the facial bones and sinuses were obtained without contrast. Coronal reformatted images were also obtained.This study was performed with techniques to keep radiation doses as low as reasonably achievable, (ALARA). Individualized dose reduction techniques using automated exposure control or adjustment of mA and/or kV according to the patient''''s size were employed. CLINICAL HISTORY: persistent sinusitis COMPARISON: None FINDINGS: There is no evidence of mucosal thickening. No fluid levels are identified. The ostiomeatal units have an unremarkable appearance. There is a retention cyst or polyp in the left sphenoid sinus. Leftward nasal septal deviation is noted with a left-sided nasal septal spur. No fracture or acute bony abnormality is identified. IMPRESSION: Retention cyst or polyp left sphenoid sinus. Leftward nasal septal deviation with left-sided nasal septal spur. Reviewed, Interpreted and Dictated by Jose Dao III, MD Transcribed by Anna Marie Lopez Authenticated and [facility]
--- NOTE | 2024-07-17 08:09 | MR_ITS ---
FINAL REPORT CLINICAL HISTORY: LUMBAR SPINE PAIN, left foot pain COMPARISON: None FINDINGS: Multiplanar MR imaging of the lumbar spine was performed without contrast. There is motion on many sequences which limits overall image quality. On the sagittal T2-weighted images, disc degeneration is present at the L5-S1 level. The vertebral alignment is normal. There is no evidence of fracture. No bony mass is identified. The conus has an unremarkable appearance. No significant canal stenosis is identified. T11-12: No significant central canal stenosis or neural foraminal narrowing. T12-L1: No significant central canal stenosis or neural foraminal narrowing. L1-2: No significant central canal stenosis or neuroforaminal narrowing. L2-3: No significant central canal stenosis or neuroforaminal narrowing. L3-4: No significant central canal stenosis or neuroforaminal narrowing. L4-5: A disc bulge is present with facet arthropathy and mild bilateral neural foraminal narrowing. L5-S1: A disc bulge is present with facet arthropathy and moderate bilateral neural foraminal narrowing. IMPRESSION: Mild degenerative change at the L4-5 and L5-S1 levels. Reviewed, Interpreted and Dictated by Jose Dao III, MD Transcribed by Beti Tapia Authenticated and [facility]
== END 2024-07-17 23:59 | disposition home or self-care (01) ==
LOC: RAD 07:22
PROVIDERS: PCP Physician Assistant; Visit Provider Physician Assistant
DX: J32.9 Chronic sinusitis, unspecified (principal); M54.40 Lumbago with sciatica, unspecified side
CPT/HCPCS: 70486; 72148

== ENCOUNTER 2024-07-22 09:47 | Outpatient (CLI) | payer OTHER, SELFPAY ==
--- NOTE | 2024-07-22 09:47 | US_ITS ---
FINAL REPORT CLINICAL HISTORY: Rt side of neck cyst FINDINGS: SOFT TISSUES NECK ULTRASOUND: There is an 8 mm ovoid subcutaneous structure in the posterior neck just to the right of midline. This focus was also present on a prior MR examination of 03/11/2024. There is a small tract that connects this cystic structure to the subcutaneous soft tissues. This most likely represents a sebaceous cyst. The overall size and appearance is not significantly changed since the prior exam. IMPRESSION: Subcutaneous 8 mm ovoid structure in the posterior neck just to the right of midline, essentially stable since the prior exam. This most likely represents a sebaceous cyst. Reviewed, Interpreted and Dictated by Matthew Craig MD Transcribed by Beti Tapia Authenticated and [facility]
== END 2024-07-22 23:59 | disposition home or self-care (01) ==
LOC: RAD 09:47
PROVIDERS: PCP Physician Assistant; Visit Provider Surgery
DX: L72.3 Sebaceous cyst (principal)
CPT/HCPCS: 76536

== ENCOUNTER 2024-12-02 08:55 | Outpatient (CLI) | payer OTHER, SELFPAY ==
--- NOTE | 2024-12-02 09:53 | ECG_ITS ---
APPROVED REPORT Exam: Resting ECG HR:68 bpm ECG Measurements Heart Rate 68 AXES HI 163 P 60 QRSd 121 QRS -16 QT 370 T -2 QTc 386 Conclusion SINUS RHYTHM RIGHT BUNDLE BRANCH BLOCK [120+ ms QRS DURATION, UPRIGHT V1, 40+ ms S IN I/aVL/V4/V5/V6] ABNORMAL ECG UNCONFIRMED REPORT Electronically signed by : Boni De La O MD 12/04/2024 10:55:07
[2024-12-02 10:24] VITALS: BMI 41.5
--- NOTE | 2024-12-02 10:27 | PC.NURSE ---
Spoke with patient for pre-adm appointment. Obtained EKG/Labs. Cardiology appointment setup for Surgical Clearance. Pt called w/cardiology appt time and left message.
[2024-12-02 11:00] LABS: Basophils % 0.8 % (0.1-2.0); Eosinophils # 0.1 K/mm3 (0.0-0.4); Eosinophils % 0.9 % (0.1-12.0); Hematocrit 39.9 % (42.0-52.0); Hemoglobin 12.6 g/dL (14.1-18.0); Lymphocytes # 1.2 K/mm3 (0.7-4.5); Lymphocytes % 22.1 % (10-50); Mean Corpuscular HGB Conc 31.6 g/dL (31.8-35.4); Mean Corpuscular Hemoglobin 25.4 pg (27.0-31.2); Mean Corpuscular Volume 80.4 fl (80-94); Mean Platelet Volume 11.1 fl (7.4-10.4); Monocytes # 0.5 K/mm3 (0.1-1.0); Monocytes % 9.1 % (1.7-9.3); Neutrophils # 3.6 K/mm3 (1.8-7.8); Neutrophils % 66.9 % (37.0-80.0); Platelet Count 246 K/mm3 (142-424); Red Blood Count 4.96 M/mm3 (4.60-6.20); Red Cell Distribution Width 13.7 % (11.5-17.5); White Blood Count 5.3 K/mm3 (4.8-10.8)
[2024-12-02 11:05] LABS: Chloride 100 mmol/L (98-107); Sodium 140 mmol/L (136-145)
[2024-12-02 11:06] LABS: Potassium 3.8 mmoL/L (3.5-5.1)
[2024-12-02 11:08] LABS: Blood Urea Nitrogen 14 mg/dl (9-20); Creatinine Clearance Estimated 84 mL/min (50-200); Estimated Glomerular Filt Rate 71 ml/min (>60); GFR (African American) 86 ML/MIN (>60)
[2024-12-02 11:09] LABS: Anion Gap 13.8 mEq/L (5-15); Calcium 9.4 mg/dl (8.4-10.2); Carbon Dioxide 30 mmol/L (22.0-30.0); Glucose 77 mg/dl (74-100)
== END 2024-12-02 23:59 | disposition home or self-care (01) ==
LOC: PREOP 08:56
PROVIDERS: PCP Physician Assistant; Visit Provider Surgery
DX: I45.10 Unspecified right bundle-branch block (principal); L72.3 Sebaceous cyst; R94.31 Abnormal electrocardiogram [ECG] [EKG]
CPT/HCPCS: 80048; 85025; 93005

== ENCOUNTER 2024-12-08 08:52 | Day surgery (SDC) | payer OTHER, SELFPAY ==
[2024-12-02 09:36] VITALS: BMI 41.5
[2024-12-08] VITALS (10 sets, daily range): BP systolic 122–156; BP diastolic 58–90; PULSE 71–89; RESP 15–20; TEMP 36.4–37.6; O2SAT 93–100
[2024-12-08 09:38] LABS: POC Glucose,Bedside 92 (70-110)
[2024-12-08] MEDS: CEFAZOLIN SODIUM 2 GM in 0.9 % SODIUM CHLORIDE 100 ML IV (09:45)
[2024-12-08] MEDS: LIDOCAINE 1% 20ML MDV 20 ML (10:04)
--- NOTE | 2024-12-08 10:23 | EXP.OP.NOTE ---
Date of procedure: 12/08/24 Pre-op Diagnosis:: Probable sebaceous cyst posterior neck Post-op Diagnosis:: Same Procedure performed:: Excision of sebaceous cyst from the back of the neck, excisional length 2 cm, with intermediate complexity closure Surgeon:: Jose Broussard MD ALTERATION MANAGER:: Other Anesthesia: local and LMA Estimated blood loss (mL): 3 Operative findings:: Consistent with subcutaneous epidermal inclusion cyst Operative note:: Consent was obtained and patient was taken the operating room. He was positioned in supine position. General anesthesia was induced via LMA. He was positioned in lateral position. The area was positioned and prepped and draped in the standard surgical fashion. Lesion was marked with a skin marker for planned elliptical excision. Limited amount of local anesthetic was infiltrated. Incision was made. Sharp dissection was carried down to the thickened skin. Underlying cyst capsule was encountered. There was a small amount of caseous mucous cereal which exuded from the cyst capsule. Sharp dissection was used to excise the cyst free from the subcutaneous tissues with the attached overlying skin ellipse. It was sent off as a specimen. Wound was irrigated. Hemostasis was achieved with electrocautery. Additional local anesthetic was infiltrated. Deep dermal tissues were reapproximated with a couple of interrupted 3-0 Vicryl. Skin was closed with interrupted 4-0 Ethilon. Clean dry sterile dressing was applied. Condition: stable Disposition: PACU Complications:: None immediately apparent
--- NOTE | 2024-12-08 12:29 | P.PNANES_ITS ---
[facility] Disclaimer: The information contained in this section may have been updated after the patient was seen, as this information can be updated by other users. Medical History Cyst of sphenoid sinus Likely incidental finding of the left sphenoid sinus Allergic rhinitis History of cocaine abuse Abnormal electrocardiogram [ECG] [EKG] FELIX (obstructive sleep apnea) Family history of asthma History of smoking 30 or more pack years Dyspnea on exertion Restrictive lung disease Sleep apnea History of COVID-19 History of gastroesophageal reflux (GERD) Hyperlipidemia Hypertension Sinus bradycardia FELIX (obstructive sleep apnea) Osteoarthritis Encounter for pre-operative cardiovascular clearance Former smoker Abnormal ECG Surgical History Status post left foot surgery Status post surgery S/P ACL repair History of left knee surgery History of repair of right hip joint History of wisdom tooth extraction Status post phlebectomy Family History Mother Family history of myocardial infarction Family history of diabetes mellitus type II Father Stroke TIA/Mini stoke/Aneurysm Social History Smoking Status: Former smoker smoking status stop date: 2015 alcohol intake: former substance use type: former substance user current occupational status: unemployed Travel in the last 8 weeks: None [facility] Anesthesia Checklist Patient Identification Patient Identification: Arm Band and Verbal (Name & ) Structural Data Admitted From: Home Planned Operative Procedure/s: excision neck cyst Consent for Planned Operative Procedure(s) Verified: Yes Verified Documents: Surgical Consent and History and Physical NPO Status Verified Time NPO: 00:00 Additional verifications Patient : No Anesthesia Reactions: No Hx Blood Transfusions: No Blood Transfusion Reaction: No Cephalosporin Allergy: No Previous Colonoscopy: No Airway Assessment Mallampati Score:: Class II C-Spine Mobility Assessed: Yes TMJ Mobility Assessed: Yes Dentition: Good Dentition Neurological Assessment Level of Consciousness: Awake, Alert and Appropriate Hx Seizures: No Numbness or tingling in extremities: No Anesthesia Plan ASA Class: II Anesthesia Type: General
--- NOTE | 2024-12-08 12:31 | EXP.ANES.I ---
[facility] Anesthesia Record Part I Anesthesia Record I Intake, IV Amount: 200 Hydration: Adequate Estimated blood loss (mL): 0 Urine output (mL): 0 Blood Products used (#): none Blood Pressure: 139/87 SaO2: 93 Pulse Rate: 81 Airway Patency: Patent Respiratory Rate: 16 Temperature: 98.1 F Patient is:: Drowsy and Stable Stable to PACU at:: 10:29
--- NOTE | 2024-12-08 13:27 | EXP.ANES.II ---
[facility] Anesthesia Record Part II Anesthesia Record Part II Discharge Time: 10:59 Destination: Surgical Day Care (OP Surgery) PACU nurse assessment reviewed?: Yes Patient Condition:: Good Anesthesia Complications:: None Swallowing reflex intact?: Yes Airway Patency: Patent Cyanosis?: No Blood Pressure: 138/84 SaO2: 98 Respiratory Rate: 16 Pulse Rate: 74 Temperature: 99.1 F Mental Status: Alert & Oriented Pain level:: 0 Nausea and/or vomitting:: None Intake, IV Amount: 0 Hydration: Adequate
== END 2024-12-08 11:35 | disposition home or self-care (01) ==
PROVIDERS: PCP Physician Assistant; Visit Provider Surgery
PROC: (CPT 11424; principal; 2024-12-08 10:40)
DX: L72.3 Sebaceous cyst (principal)
CPT/HCPCS: 11424; 12041; 82962; 96374; J0690; J1100; J2250; J2405; J3010

== ENCOUNTER 2025-05-22 10:19 | Outpatient (CLI) | payer OTHER, SELFPAY ==
--- NOTE | 2025-05-22 | CA_ITS ---
FINAL REPORT TECHNIQUE: Graded compression, spectral analysis and ultrasound images of the venous system of the upper extremity were obtained. CLINICAL HISTORY: Right arm tenderness with a prominent upper arm bicep area. Pt has been using a cane w right hand x 2 yrs, vein bulging x 6 months. 75 lb weight loss since November COMPARISON: None FINDINGS: The jugular vein, subclavian vein, axillary vein, brachial vein, cephalic vein and basilic venous system are normal, fully compressible and demonstrate no evidence of right arm venous thrombosis. IMPRESSION: No evidence of thrombosis of the venous system of the right upper extremity. Reviewed, Interpreted and Dictated by Dwain Staley MD Transcribed by Beti Tapia Authenticated and . [facility]
--- OUTSIDE RECORDS SUMMARY | 2025-05-22 10:22 | XMS_ITS | Data Portability ---
Author Organization [facility] [employer] [place] Address [address] [place] [place] [address] Care Team Providers Care Dredge Master Name Role Phone [facility] Orthopedic Surgeon Assessment No assessment recorded. Plan of Treatment Reminders Order Date Submit Date Provider Last Modified By Organization Details Last Modified Time Details Appointments FOLLOW UP 15 2024 01:30P Alfonso Alex PA-C Not available Not available Not available Lab HbA1c (hemoglob in A1c), blood [address], [address] [place], [address], 05/19/2025 13:43:33 HbA1c (hemoglob in A1c), blood [address], [address] [place], [address], 02/16/2025 13:31:46 noninvasi ve colorecta l cancer DNA + occult blood screening , QL, stool 2024 025 [facility] (Cologuard Orders Only), [address], [address], [place], [address], 12/17/2024 01:47:40 magnesium , serum or plasma 2024 025 [facility] ([facility]), [address] [place] [address], [place], [address], 11/15/2024 06:09:47 cobalamin and folate panel, serum 2024 025 [facility] ([facility]), [address] [place], [address], 11/15/2024 06:09:45 PSA, total, serum or plasma 2024 025 [facility] ([facility]), [address] [place], [address], 11/15/2024 06:09:47 lipid panel, serum 2024 025 [facility] ([facility]), [address] [place], [address], 11/15/2024 06:09:45 CMP, serum or plasma 2024 025 [facility] ([facility]), [address] [place], [address], 11/15/2024 06:09:44 CBC w/ auto diff 2024 025 [facility] ([facility]), [address] [place], [address], 11/15/2024 06:09:44 vitamin D, 25-hydrox y, total, serum 2024 025 [facility] ([facility]), [address] [place], [address], 11/15/2024 06:09:46 TSH, ultra-sen sitive, serum 2024 025 [facility] ([facility]), [address] [place], [address], 11/15/2024 06:09:46 HIV 1 + 2, meaningfu l use set 2024 025 [facility]), [facility] [place], [address], 11/15/2024 06:09:46 Hepatitis C IgG Ab, qual, serum 2024 025 [facility], [address] [place] [address], [place], [address], 11/15/2024 06:09:45 Referral None recorded. Procedures None recorded. Surgeries None recorded. Imaging US, duplex, venous, upper extremity , unilatera l 2024 025 [facility] ([facility]), [address], [place], [address], 05/18/2025 14:31:43 Medication Orders Voquezna 20 mg tablet 2024 025 [email or web address] [facility], [facility] [place], [address], 12/18/2024 13:30:12 meclizine 25 mg tablet [id number] [place] [address] Pharm[address] [facility], [facility] [place], [address], 11/13/2024 14:23:55 prednison e 20 mg tablet 2024 025 [facility], [facility] [place], [address], 11/27/2024 13:40:12 Patient TargetsNo targets recorded. Patient Instructions Encounter Date Encounter Id Patient Instructions Last Modified By Organization Details Last Modified Time 11/13/2024 [id number] body mass index: care instructions [id number] Not available 11/13/2024 15:28:43 learning about healthy weight [email or web address] Not available 11/13/2024 15:28:43 chronic obstructive pulmonary disease (COPD): care instructions Not available 11/13/2024 15:28:43 learning about copd and how to prevent lung infections [id number] Not available 11/13/2024 15:28:43 11/27/2024 [id number] body mass index: care instructions [id number] Not available 11/27/2024 17:46:19 learning about healthy weight [id number] Not available 11/27/2024 17:46:19 tetanus and diphtheria booster: care instructions Not available 11/27/2024 14:01:49 12/18/2024 [id number] high blood pressure: care instructions [id number] Not available 12/19/2024 09:20:18 learning about high blood pressure [id number] Not available 12/19/2024 09:20:18 chronic obstructive pulmonary disease (COPD): care instructions [id number] Not available 12/19/2024 09:20:18 learning about copd and how to prevent lung infections Not available 12/19/2024 09:20:18 02/16/2025 [id number] allergies: care instructions [id number] Not available 02/17/2025 11:33:08 high blood pressure: care instructions [email or web address] Not available 02/17/2025 11:33:08 learning about high blood pressure [id number] Not available 02/17/2025 11:33:08 high cholesterol : care instructions [id number] Not available 02/17/2025 11:33:08 chronic obstructive pulmonary disease (COPD): care instructions [id number] Not available 02/17/2025 11:33:08 learning about copd and how to prevent lung infections Not available 02/17/2025 11:33:08 05/18/2025 [id number] learning about healthy weight [id number] Not available 05/19/2025 13:43:33 chronic obstructive pulmonary disease (COPD): care instructions [email or web address] Not available 05/19/2025 13:43:33 learning about copd and how to prevent lung infections Not available 05/19/2025 13:43:33 Reason for Referral None Reported. Results Created Date Observation Date Name Description Value Unit Range Abnormal Flag Note LastModifiedBy Organization Detail LastModifiedTime 11/13/1911/14/2024 CBC WITH DIFFE RENTI AL/PL ATELE T WBC 6.2 x10e3 /uL 3.4-10 .8 normal Not Available [facility] ([facility]) [address] [facility], [place], [address], 11/15/2024 06:09:44 11/13/1911/14/2024 CBC WITH DIFFE RENTI AL/PL ATELE T RBC 5.23 x10e6 /uL 4.14-5 .80 normal Not Available [facility] ([facility]) [address] [place], [address], 11/15/2024 06:09:44 11/13/19 25 11/14/2024 CBC WITH DIFFE RENTI AL/PL ATELE T hemoglobin 13.6 g/dL 13.0-1 7.7 normal Not Available [facility] ([facility]) [address] [place], [address], 11/15/2024 06:09:44 11/13/1911/14/2024 CBC WITH DIFFE RENTI AL/PL ATELE T hematocrit 42.6 % 37.5-5 1.0 normal Not Available [facility] ([facility]) [address] [place], [address], 11/15/2024 06:09:44 11/13/1911/14/2024 CBC WITH DIFFE RENTI AL/PL ATELE T MCV 82 fL 79-97 normal Not Available [facility] ([facility]) [address] [place], [address], 11/15/2024 06:09:44 11/13/1911/14/2024 CBC WITH DIFFE RENTI AL/PL ATELE T MCH 26.0 pg 26.6-3 3.0 below low normal Not Available [facility] ([facility]) [address] [place], [address], 11/15/2024 06:09:44 11/13/1911/14/2024 CBC WITH DIFFE RENTI AL/PL ATELE T MCHC 31.9 g/dL 31.5-3 5.7 normal Not Available [facility] ([facility]) [address] [place], [address], 11/15/2024 06:09:44 11/13/19 25 11/14/2024 CBC WITH DIFFE RENTI AL/PL ATELE T RDW 13.7 % 11.6-1 5.4 Not Available [facility] ([facility]) [address] [facility], [place], [address], 11/15/2024 06:09:44 11/13/19 25 11/14/2024 CBC WITH DIFFE RENTI AL/PL ATELE T platelets 250 x10e3 /uL 150-45 0 normal Not Available [facility] ([facility]) [address] [facility], [place], [address], 11/15/2024 06:09:44 11/13/19 25 11/14/2024 CBC WITH DIFFE RENTI AL/PL ATELE T neutrophils 71 % not estab. normal Not Available [facility] ([facility]) [address] [facility], [place], [address], 11/15/2024 06:09:44 11/13/19 25 11/14/2024 CBC WITH DIFFE RENTI AL/PL ATELE T lymphs 20 % not estab. normal Not Available [facility] ([facility]) [address] [facility], [place], [address], 11/15/2024 06:09:44 11/13/19 25 11/14/2024 CBC WITH DIFFE RENTI AL/PL ATELE T monocytes 7 % not estab. normal Not Available [facility] ([facility]) [address] [facility], [place], [address], 11/15/2024 06:09:44 11/13/19 25 11/14/2024 CBC WITH DIFFE RENTI AL/PL ATELE T eos 1 % not estab. normal Not Available [facility] ([facility]) [address] [facility], [place], [address], 11/15/2024 06:09:44 11/13/19 25 11/14/2024 CBC WITH DIFFE RENTI AL/PL ATELE T basos 1 % not estab. normal Not Available [facility] ([facility]) [address] [facility], [place], [address], 11/15/2024 06:09:44 11/13/19 25 11/14/2024 CBC WITH DIFFE RENTI AL/PL ATELE T immature cells SIZE TESTER Not Available [facility] ([facility]) [address] [facility], [place], [address], 11/15/2024 06:09:44 11/13/19 25 11/14/2024 CBC WITH DIFFE RENTI AL/PL ATELE T neutrophils (absolute) 4.4 x10e3 /uL 1.4-7. 0 normal Not Available [facility] ([facility]) [address] [facility], [place], [address], 11/15/2024 06:09:44 11/13/19 25 11/14/2024 CBC WITH DIFFE RENTI AL/PL ATELE T lymphs (absolute) 1.3 x10e3 /uL 0.7-3. 1 normal Not Available [facility] ([facility]) [address] [place], [address], 11/15/2024 06:09:44 11/13/19 25 11/14/2024 CBC WITH DIFFE RENTI AL/PL ATELE T monocytes(ab solute) 0.4 x10e3 /uL 0.1-0. 9 normal Not Available [facility] ([facility]) [address] [place], [address], 11/15/2024 06:09:44 11/13/19 25 11/14/2024 CBC WITH DIFFE RENTI AL/PL ATELE T eos (absolute) 0.0 x10e3 /uL 0.0-0. 4 normal Not Available [facility] ([facility]) [address] [facility], [place], [address], 11/15/2024 06:09:44 11/13/19 25 11/14/2024 CBC WITH DIFFE RENTI AL/PL ATELE T baso (absolute) 0.0 x10e3 /uL 0.0-0. 2 normal Not Available [facility] ([facility]) [address] [facility], [place], [address], 11/15/2024 06:09:44 11/13/19 25 11/14/2024 CBC WITH DIFFE RENTI AL/PL ATELE T immature granulocytes 0 % not estab. Not Available [facility] ([facility]) [address] [facility], [place], [address], 11/15/2024 06:09:44 11/13/19 25 11/14/2024 CBC WITH DIFFE RENTI AL/PL ATELE T immature grans (abs) 0.0 x10e3 /uL 0.0-0. 1 Not Available [facility] ([facility]) [address] [facility], [place], [address], 11/15/2024 06:09:44 11/13/19 25 11/14/2024 CBC WITH DIFFE RENTI AL/PL ATELE T NRBC SIZE TESTER Not Available [facility] ([facility]) [address] [facility], [place], [address], 11/15/2024 06:09:44 11/13/19 25 11/14/2024 CBC WITH DIFFE RENTI AL/PL ATELE T hematology comments: SIZE TESTER Not Available [facility] ([facility]) [address] [facility], [place], [address], 11/15/2024 06:09:44 11/13/19 25 11/14/2024 COMP. METAB OLIC PANEL (14) glucose 144 mg/dL 70-99 above high normal Not Available [facility] ([facility]) [address] [place], [address], 11/15/2024 06:09:44 11/13/19 25 11/14/2024 COMP. METAB OLIC PANEL (14) BUN 12 mg/dL 6-24 normal Not Available [facility] ([facility]) [address] [place], [address], 11/15/2024 06:09:44 11/13/19 25 11/14/2024 COMP. METAB OLIC PANEL (14) creatinine 0.97 mg/dL 0.76-1 .27 normal Not Available [facility] ([facility]) [address] [place], [address], 11/15/2024 06:09:44 11/13/19 25 11/14/2024 COMP. METAB OLIC PANEL (14) eGFR 96 mL/mi n/1.7 3 >59 normal Not Available [facility] ([facility]) [address] [place], [address], 11/15/2024 06:09:44 11/13/19 25 11/14/2024 COMP. METAB OLIC PANEL (14) BUN/creatini ne ratio 12 9-20 normal Not Available [facility] ([facility]) [address] [place], [address], 11/15/2024 06:09:44 11/13/19 25 11/14/2024 COMP. METAB OLIC PANEL (14) sodium 143 mmol/ L 134-14 4 normal Not Available [facility] ([facility]) [address] [place], [address], 11/15/2024 06:09:44 11/13/19 25 11/14/2024 COMP. METAB OLIC PANEL (14) potassium 4.5 mmol/ L 3.5-5. 2 normal Not Available [facility] ([facility]) [address] [place], [address], 11/15/2024 06:09:44 11/13/19 25 11/14/2024 COMP. METAB OLIC PANEL (14) chloride 102 mmol/ L 96-106 normal Not Available [facility] ([facility]) [address] [place], [address], 11/15/2024 06:09:44 11/13/19 25 11/14/2024 COMP. METAB OLIC PANEL (14) carbon dioxide, total 24 mmol/ L 20-29 normal Not Available [facility] ([facility]) [address] [place], [address], 11/15/2024 06:09:44 11/13/19 25 11/14/2024 COMP. METAB OLIC PANEL (14) calcium 9.5 mg/dL 8.7-10 .2 normal Not Available [facility] ([facility]) [address] [place], [address], 11/15/2024 06:09:44 11/13/19 25 11/14/2024 COMP. METAB OLIC PANEL (14) protein, total 7.3 g/dL 6.0-8. 5 normal Not Available [facility] ([facility]) [address] [place], [address], 11/15/2024 06:09:44 11/13/19 25 11/14/2024 COMP. METAB OLIC PANEL (14) albumin 4.4 g/dL 4.1-5. 1 normal Not Available [facility] ([facility]) [address] [place], [address], 11/15/2024 06:09:44 11/13/1911/14/2024 COMP. METAB OLIC PANEL (14) globulin, total 2.9 g/dL 1.5-4. 5 Not Available [facility] ([facility]) [address] [place], [address], 11/15/2024 06:09:44 11/13/19 25 11/14/2024 COMP. METAB OLIC PANEL (14) bilirubin, total 0.7 mg/dL 0.0-1. 2 normal Not Available [facility] ([facility]) [address] [place], [address], 11/15/2024 06:09:44 11/13/19 25 11/14/2024 COMP. METAB OLIC PANEL (14) alkaline phosphatase 87 IU/L 44-121 normal Not Available [facility] ([facility]) [address] [place], [address], 11/15/2024 06:09:44 11/13/19 25 11/14/2024 COMP. METAB OLIC PANEL (14) AST (SGOT) 34 IU/L 0-40 normal Not Available [facility] ([facility]) [address] [place], [address], 11/15/2024 06:09:44 11/13/19 25 11/14/2024 COMP. METAB OLIC PANEL (14) ALT (SGPT) 54 IU/L 0-44 above high normal Not Available [facility] ([facility]) [address] [place], [address], 11/15/2024 06:09:44 11/13/19 25 11/14/2024 LIPID PANEL cholesterol, total 162 mg/dL 100-19 9 normal Not Available [facility] ([facility]) [address] [place], [address], 11/15/2024 06:09:45 11/13/19 25 11/14/2024 LIPID PANEL triglyceride s 221 mg/dL 0-149 above high normal Not Available [facility] ([facility]) [address] [place], [address], 11/15/2024 06:09:45 11/13/19 25 11/14/2024 LIPID PANEL HDL cholesterol 40 mg/dL >39 normal Not Available [facility] ([facility]) [address] [place], [address], 11/15/2024 06:09:45 11/13/19 25 11/14/2024 LIPID PANEL VLDL cholesterol lopez 37 mg/dL 5-40 Not Available [facility] ([facility]) [address] [facility], [place], [address], 11/15/2024 06:09:45 11/13/19 25 11/14/2024 LIPID PANEL LDL chol calc ([facility]) 85 mg/dL 0-99 Not Available [facility] ([facility]) [address] [facility], [place], [address], 11/15/2024 06:09:45 11/13/19 25 11/14/2024 LIPID PANEL LDL calc comment: SIZE TESTER Not Available [facility] ([facility]) [address] [facility], [place], [address], 11/15/2024 06:09:45 11/13/19 25 11/14/2024 VITAM IN B12 AND FOLAT E vitamin B12 407 pg/mL 232-12 45 normal Not Available [facility] ([facility]) [address] [facility], [place], [address], 11/15/2024 06:09:45 11/13/1911/14/2024 VITAM IN B12 AND FOLAT E folate (folic acid), serum 7.5 NG/mL >3.0 normal A serum folat e fariba ntrat ion of less than 3.1 ng/mL is consi dered to repre sent clini lopez defic iency . Not Available [facility] ([facility]) [address] [facility], [place], [address], 11/15/2024 06:09:45 11/13/1911/14/2024 HCV ANTIB LEONCIO CASCA DE(PC R/GEN O) HCV Ab NON REACTI VE non reacti ve Not Available [facility] ([facility]) [address] [facility], [place], [address], 11/15/2024 06:09:45 11/13/19 25 11/14/2024 HCV ANTIB LEONCIO CASCA DE(PC R/GEN O) interpretati on: COMMEN T Not infec carlie with HCV unles s early or acute infec tion is suspe cted (whic h may be delay ed in an immun ocomp romis ed indiv idual ), or other evide nce exist s to indic ate HCV infec tion. Not Available [facility] ([facility]) [address] [facility], [place], [address], 11/15/2024 06:09:45 11/13/1911/14/2024 TSH TSH 1.080 uIU/m L 0.450- 4.500 normal Not Available [facility] ([facility]) [address] [facility], [place], [address], 11/15/2024 06:09:46 11/13/1911/14/2024 VITAM IN D, 25-HY DROXY vitamin D, 25-hydroxy 63.5 NG/mL 30.0-1 00.0 Vitam in D defic iency has been defin ed by the Insti tute of Medic ine and an Endoc rine Socie ty pract ice guide line as a level of serum 25-OH vitam in D less than 20 ng/mL (1,2) . The Endoc rine Socie ty went on to furth er defin e vitam in D insuf ficie ncy as a level betwe en 21 and 29 ng/mL (2). 1. IOM (Inst itute of Medic ine). 2009. Dieta ry refer ence intak es for calci um and D. Evens granado [place]: The Natio [facility]ade [facility] Press . 2. Enrique boggs MF, Chris rueda [place], Jennifer off-F errar i MIKE, et al. Evalu ation , treat ment, and preve ntion of vitam in D defic iency : an Endoc rine Socie ty clini lopez pract ice guide line. JCEM. 2010; 96(7) :1911 -30. Not Available [facility] ([facility]) [address] [facility], [place], [address], 11/15/2024 06:09:46 11/13/1911/15/2024 HIV AB/P2 4 AG WITH REFLE X HIV Ab/P24 Ag screen NON REACTI VE non reacti ve HIV-1 /HIV- 2 antib odies and HIV-1 p24 antig en were NOT detec carlie. There is no labor atory evide nce of HIV infec tion. HIV Negat hay Not Available [facility] ([facility]) [address] [facility], [place], [address], 11/15/2024 06:09:46 11/13/1911/14/2024 PROST ATE SPECI FIC AG, SERUM prostate specific Ag 0.9 NG/mL 0.0-4. 0 normal Pan ECLIA metho dolog y. Accor ding to the Ameri can Urolo gical Assoc iatio n, Serum PSA shoul d decre ase and remai n at undet ectab le level s after radic al prost atect cecille. The AUA defin es bioch emica l recur rence as an initi al PSA value 0.2 ng/mL or great er follo wed by a subse quent confi rmato ry PSA value 0.2 ng/mL or great er. Value s obtai gary with diffe rent assay metho ds or kits canno t be used inter yeboah eably . Resul ts canno t be inter prete d as absol rhett evide nce of the prese nce or absen ce of heather gonzalez se. Not Available [facility] ([facility]) [address] [facility], [place], [address], 11/15/2024 06:09:47 11/13/1911/14/2024 MAGNE SIUM magnesium 2.1 mg/dL 1.6-2. 3 normal Not Available [facility] ([facility]) [address] [facility], [place], [address], 11/15/2024 06:09:47 11/13/1911/17/2024 HEMOG LOBIN A1C hemoglobin A1C 6.3 % 4.8-5. 6 above high normal Predi abete s: 5.7 - 6.4 Diabe asaf: >6.4 Glyce joey contr ol for adult s with diabe asaf: <7.0 Not Available [facility] ([facility]) [address] [facility], [place], [address], 11/18/2024 00:06:30 11/13/19 25 11/17/2024 WRSAFIA EN AUTHO NELSON FELDMAN written authorizatio n MYA T Jennifer en Autho rijamest ion Recei gabriella. Autho rizat ion recei gabriella from [facility] for Link Reque st on 11-17 Logge d by Rafael gandhi Not Available [facility] ([facility]) [address] [facility], [place], [address], 11/18/2024 00:06:31 02/17/20 25 02/16/2025 HbA1c (hemo globi n A1c), blood HbA1c 5.1 % Not Available [facility] [address] [place] [address], [address], 02/16/2025 13:26:56 05/18/2005/18/2025 HbA1c (hemo globi n A1c), blood HbA1c 5.2 Not Available [facility] [address] [place] [address], [address], 05/18/2025 13:38:11 Result Notes None recorded. Problems Name Problem SNOMED Code Status Onset Date Resolution Date Notes Provider Name and Address Organization Details Recorded Time Cyst of sphenoid sinus 4007350409288 9108 Active 2023 STAN Zhu [address] [place] [address], [phone], [employer] 16:03:17 Essential hypertensio n 82109600 Active 2023 STAN Zhu [address] [place] [address], [phone] 8, [facility] [employer] 4 16:03:19 Hyperlipide jhonatan 13693753 Active 2023 STAN Zhu [address] [place] [address], [phone] 8, [employer] 4 16:03:23 Vitamin D deficiency 33866047 Active 2023 STAN Zhu [address] [place] [address], [phone] 8, [employer] 4 16:03:27 Chronic obstructive pulmonary disease 22781019 Active 2023 Nohelia Alex STAN [address] [place] [address], [phone] 8, [employer] 4 16:03:14 Gastroesoph ageal reflux disease without esophagitis 204556455 Active 2023 Nohelia Alex STAN [address] [place] [address], [address] 8, [employer] 4 16:03:21 Allergic rhinitis 86620765 Active 2023 No[address]liabarney AlexSTAN [address] [place] [address], [address] 8, [employer] 4 16:03:01 Obesity 944460590 Active 2023 Nohelia AlexSTAN [address] [place] [address], [phone] 8, [employer] 4 16:48:13 Vertigo 906012299 Active 2024 STAN Zhu [address] [place] [address], [phone] 8, [employer] 5 14:22:19 Prediabetes 605574891 Active 2024 STAN Zhu [address] [place] [address], [address]15[address]927 8, [employer] 5 10:43:18 Pain of right upper arm 1557726418502 03 Active 2024 STAN Zhu [address] [place] [address], [address] 8, [employer] 13:31:22 Problem Notes None recorded. Procedures Surgical History Date Name Laterality Status Provider Name and Address Organization Details Recorded Time Orthopedic Surgery completed [facility] 09/29/2024 10:46:57 Other completed [employer] 09/29/2024 10:47:18 Orthopedic Surgery completed [facility] 09/29/2024 10:47:46 varicose vein stripping completed [facility] 09/29/2024 10:48:31 Imaging Results None recorded. Procedure Notes None recorded. Medical Equipment None Reported. Allergies No known drug allergies Medications Name Sig Start Date Stop Date Status Note LastModified by Organization Details LastModified Time Prescriptio n - Prior Authorizati on Request active Not Available Not Available N ot Available atorvastati n 10 mg tablet TAKE 1 TABLET BY MOUTH ONCE DAILY AT BEDTIME FOR HIGH CHOLESTER OL 2024 active Not Available Not Available Not Avai lable famotidine 40 mg tablet Take 1 tablet every day by oral route as directed for 90 days, for heartburn . 02/16 completed Not Available Not Available Not Available prednisone 20 mg tablet TAKE 1 TABLET BY MOUTH TWICE DAILY DIRECTED FOR 5 DAYS 11/27 completed Not Available Not Available Not Available omeprazole 40 mg capsule,del ayed release TAKE 1 CAPSULE BY MOUTH ONCE DAILY DIRECTED FOR GERD 02/16 completed Not Available Not Available Not Available aspirin 81 mg tablet,sofie yed release Take 1 tablet every day by oral route. active Not Available Not Available No t Available meclizine 25 mg tablet TAKE 1 TABLET BY MOUTH THREE TIMES DAILY NEEDED FOR DIZZINESS FOR 10 DAYS active Not Available Not Available No t Available mupirocin 2 % topical ointment APPLY OINTMENT TOPICALLY TO AFFECTED AREA TWICE DAILY FOR THREE WEEKS FOR CELLULITI S 09/27 completed Not Available Not Available Not Available metoprolol succinate ER 25 mg tablet,exte nded release 24 hr TAKE 1 TABLET BY MOUTH ONCE DAILY FOR HIGH BLOOD PRESSURE active Not Available Not Available No t Available ergocalcife rol (vitamin D2) 1,250 mcg (50,000 unit) capsule TAKE 1 CAPSULE BY MOUTH ONCE A WEEK DIRECTED FOR VITAMIN D DEFICIENC Y active Not Available Not Available No t Available azelastine 137 mcg (0.1 %) nasal spray USE 1 SPRAY IN EACH NOSTRIL TWICE DAILY active Not Available Not Available No t Available methylpredn isolone 4 mg tablets in a dose pack TAKE TABLETS BY MOUTH DAILY FOR 6 DAYS PER PACKAGE DIRECTION S 09/27 completed Not Available Not Available Not Available fluticasone propionate 50 mcg/actuati on nasal spray,suspe nsion USE 1 SPRAY(S) IN EACH NOSTRIL TWICE DAILY NEEDED FOR ALLERGY SYMPTOMS active Not Available Not Available No t Available metformin ER 500 mg tablet,exte nded release 24 hr Take 1 tablet every day by oral route as directed for 90 days. 02/20 completed Not Available Not Available Not Available doxycycline hyclate 100 mg tablet TAKE 1 TABLET BY MOUTH TWICE DAILY 09/27 completed Not Available Not Available Not Available Ventolin HFA 90 mcg/actuati on aerosol inhaler INHALE 2 PUFFS BY MOUTH EVERY 6 HOURS NEEDED FOR SHORTNESS OF BREATH OR WHEEZING active Not Available Not Available No t Available Fish Oil daily active Not Available Not Avai lable Not Available Vitamin D daily active Not Available Not Tawnya ilable Not Available levocetiriz ine 5 mg tablet TAKE 1 TABLET BY MOUTH ONCE DAILY 09/27 completed Not Available Not Available Not Available Contrave 8 mg-90 mg tablet,exte nded release Take 2 tablets twice a day by oral route as directed for 30 days, for weight loss. 11/13 completed Not Available Not Available Not Available Saxenda 3 mg/0.5 mL (18 mg/3 mL) subcutaneou s pen injector Inject 0.5 mL every day by subcutane ous route as directed for 90 days, for weight loss. 11/13 completed Not Available Not Available Not Available Voquezna 20 mg tablet TAKE 1 TABLET BY MOUTH ONCE DAILY active Not Available Not Available No t Available Vitals Date Recorded Body height Body mass index (BMI) Body weight Heart rate Oxygen saturation Oxygen saturation in Arterial blood by Pulse oximetry Systolic And Diastolic Systolic And Diastolic Systolic And Diastolic Provider Name and Address Organization Details Last Updated DateTime 5 177.8 cm 42.1 kg/m2 715802. 28 g 100 /min 96 % 96 % 150/94 mm[Hg] 142/80 mm[Hg] 138/74 mm[Hg] [employer] 5 13:50:18 Date Recorded Body height Body mass index (BMI) Body weight Heart rate Oxygen saturation Oxygen saturation in Arterial blood by Pulse oximetry Body temperature Systolic And Diastolic Provider Name and Address Organization Details Last Updated DateTime 5 177.8 cm 40.7 kg/m2 727003. 8 g 92 /min 97 % 97 % 97.6 [degF] 112/81 mm[Hg] [employer] 5 13:39:34 Date Recorded Body height Body mass index (BMI) Body weight Heart rate Oxygen saturation Oxygen saturation in Arterial blood by Pulse oximetry Body temperature Systolic And Diastolic Systolic And Diastolic Systolic And Diastolic Provider Name and Address Organization Details Last Updated DateTime 5 177.8 cm 38.9 kg/m2 219958. 53 g 86 /min 98 % 98 % 97.7 [degF] 144/82 mm[Hg] 142/80 mm[Hg] 130/78 mm[Hg] [employer] 5 13:09:42 Date Recorded Body height Body mass index (BMI) Body weight Oxygen saturation Oxygen saturation in Arterial blood by Pulse oximetry Heart rate Body temperature Systolic And Diastolic Provider Name and Address Organization Details Last Updated DateTime 5 177.8 cm 34.9 kg/m2 536895. 66 g 98 % 98 % 62 /min 98 [degF] 128/66 mm[Hg] [employer] 5 12:58:02 Date Recorded Body height Body mass index (BMI) Body weight Body temperature Oxygen saturation Oxygen saturation in Arterial blood by Pulse oximetry Heart rate Systolic And Diastolic Provider Name and Address Organization Details Last Updated DateTime 5 177.8 cm 32.4 kg/m2 077994. 08 g 98.1 [degF] 97 % 97 % 60 /min 113/71 mm[Hg] [employer] 5 12:59:25 Social History Question Answer Notes LastModified by Organizat ion Details LastModified Time Tobacco Smoking Status Former Smoker Susan Vice pal [employer] 09/29/2024 10:42:32 Do You Have An Advance Directive? No Information not available 09/29/2024 Is Your Home Air Conditioned? Yes Information not available 09/29/2024 Do You Wear A Helmet When Biking? Yes Information not available 09/29/2024 Are You Blind Or Do You Have Difficulty Seeing? No Information not available 09/29/2024 What Is Your Level Of Caffeine Consumption? Moderate Information not available 09/29/2024 What Type Of Hydro Pneumatic Tester Do You Use? None Information not available 09/29/2024 Have You Been To An Area Known To Be High Risk For COVID-19? No Information not available 09/29/2024 Are You Deaf Or Do You Have Serious Difficulty Hearing? No Information not available 09/29/2024 What Type Of Diet Are You Following? REGULAR Information not available 09/29/2024 What Is The Highest Grade Or Level Of School You Have Completed Or The Highest Degree You Have Received? [id number] Information not available 09/29/2024 Have There Been Any Changes To Your Family Or Social Situation? No Information no t available 09/29/2024 When Did You Quit Smoking? 6-10yearssinc elastcigarett e Information not available 09/29/2024 Are There Any Guns Present In Your Home? Yes Information not available 09/29/2024 Which Of Your Hands Is Dominant? Left Information not available 09/29/2024 What Is Your Home Situation? Other Information not available 09/29/2024 Do You Have A Medical Power Of Layout Former? No Information not available 09/29/2024 What Was The Date Of Your Most Recent Tobacco Screening? 05/18/2025 [email or web address] Information not available 05/18/2025 Do You Have Any Pets? No Information not available 09/29/2024 Do You Use Protection During Sex? Always Information not available 09/29/2024 What Is Your Relationship Status? Single Information not available 09/29/2024 Have You Repeated Any Grades? No Information not available 09/29/2024 Do You Use Your Seat Belt Or Car Seat Routinely? Yes Information not available 09/29/2024 Are You Sexually Active? Yes Information not available 09/29/2024 Do You Have Any Siblings? Step Sister And Step Brother Information not available 09/29/2024 Do You Have Smoke And Carbon Monoxide Detectors In Your Home? Yes Information not available 09/29/2024 At What Age Did You Start Smoking Tobacco? 13 Information not available 09/29/2024 Are You Passively Exposed To Smoke? No Information no t available 09/29/2024 Are There Any Smokers In Your House? No Information not available 09/29/2024 How Much Tobacco Do You Smoke? No Information not available 09/29/2024 Do You Participate In Social Media? Yes Information not available 09/29/2024 Do You Use Sunscreen Routinely? No Information not available 09/29/2024 Has Tobacco Cessation Counseling Been Provided? No Information not available 09/29/2024 How Many Years Have You Smoked Tobacco? 27 Information not available 09/29/2024 Have You Recently Traveled Abroad? No Information not available 09/29/2024 Do You Have Difficulty Walking Or Climbing Stairs? Yes Information not available 09/29/2024 Are You Currently In School? No Information not available 09/29/2024 Do You Have Any Dietary Restrictions? No Information not available 09/29/2024 Sex: Male Functional Status Question Answer Note LastModified by Organizat ion Details LastModified Time Do you use any illicit or recreational drugs? No Information not available 09/29/2024 Do you or have you ever used any other forms of tobacco or nicotine? No Information not available 09/29/2024 What is your level of alcohol consumption? None Information not available 09/29/2024 Are you currently employed? No Information not available 09/29/2024 Do you have transportation difficulties? No Information not available 09/29/2024 Are you able to walk? YESASSIST Information not available 09/29/2024 Do you have difficulty doing errands alone? Yes Information not available 09/29/2024 Are you able to care for yourself? Yes Information not available 09/29/2024 Do you have difficulty dressing or bathing? No Information not available 09/29/2024 What is your exercise level? None Information not available 09/29/2024 Mental Status Question Answer Note LastModified by Organizat ion Details LastModified Time Do you feel stressed (tense, restless, nervous, or anxious, or unable to sleep at night)? [id number] Information not available 09/29/2024 Do you have difficulty concentrating, remembering or making decisions? No Information no t available 09/29/2024 Are you or have you been involved with bullying? No Information not available 09/29/2024 Family History Relationship Description Onset Age of this Age Resolved Age Notes LastModified by Organization Details LastModified Time Mother Hypercholest erolemia Not available 2023 10:42:30 Mother Arthritis Not available 09/29/2024 10:42:30 Mother Hypertensive disorder Not available 2023 10:42:30 Mother Heart disease Not available 2023 10:42:30 Maternal Grandmother Arthritis Not available 09/06 10:42:30 Maternal Grandfather Arthritis Not available 09/06 10:42:30 Medical History Condition Response Coronary Artery Disease N Other N Gout N Kidney Stones N Blood Diseases N Hyperthyroidism N Blood Transfusion N Breast Cancer N Emergency room visit since last appointm ent. N COPD Y Depression N Dermatologic Disorders N Hypothyroidism N Lung Disease N Developmental or Behavioral Disorders N Defects or Inherited Disease N Breast Problem N Difficulty Swallowing N Anesthesia Complications N History of STI N Meniere's disease N Anxiety Disorder N Muscle, Joint, or Bone Problems N Autoimmune disease N Obesity Y Vision or Eye Problems Y Arthritis N Polyps N Infertility N Mental Disorder N Congenital Anomalies N Acid Reflux (GERD) Y Cancer N Stroke N Neurologic/Epilepsy N Endometriosis N Bladder or Kidney Problems N High Cholesterol Y Liver Disease N Organ Transplant N Psychiatric/Mental Health Condition N Fibromyalgia N Headaches N Dialysis N Schizophrenia N Kidney Disease N Allergies/Hayfever Y Heart Problems N Ear or Hearing Problems N Hospitalizations N Learning Disorder N Artificial Joints N Thyroid Problems N GI Problems N Acne N ADD/ADHD N Eating Disorder N Anemia N Constipation N Mental Illness N Ovarian Cancer N Diabetes N Bedwetting N Hepatitis/Liver Disease N Tuberculosis N Eczema N Diverticulitis N Abuse/Domestic Violence N Asthma N Trauma/Violence N Substance Abuse N Reflux/GERD N Depression/ depression N Hepatitis N Heart Disease N Pulmonary Embolism N Tourette Syndrome N Chronic Ear Infections N Pre-Eclampsia N Hypertension Y Chicken Pox N Autism Spectrum Disorder (ASD) N Osteoporosis N Thrombophilias N Immunizations Vaccine Type Date Status Note Provider Nam e and Address Organization Details Recorded Time Tdap 11/27/2024 completed STAN Zhu [address] [place] [address], [phone], [facility] [employer] 11/27/2024 17:44:53 Tdap 03/31/2008 completed Susan pal [facility] [employer] 11/13/2024 13:36:38 Past Encounters Encounter ID Performer Location Encounter Start Date Encounter Closed Date Diagnosis/Indication Diagnosis SNOMED-CT Code Diagnosis ICD10 Code Diagnosis Note [id number] STAN Zhu [facility] [address] [place] [address] 09/29/2024 09:58:36 09/29/2024 11:07:54 Body mass index 40+ - severely obese 169164199 Z68.41 Essential hypertension 89020513 I10 Hyperlipidemia 13229179 E78.5 Vitamin D deficiency 347 60419 E55.9 Chronic ob structive pulmonary disease 95430605 J44.9 Gastroesop hageal reflux disease without esophagitis 654445841 K21.9 Allergic rhinitis 201593 04 J30.9 [id number] STAN Zhu [facility] [address] [place] [address] 11/13/2024 13:16:22 11/13/2024 14:28:06 Vertigo 170209071 R42 Adult heal th examination 001783988 Z00.00 Screening for malignant neoplasm of prostate 700989513 Z12.5 Body mass index 40+ - severely obese 689006999 Z68.41 Chronic ob structive pulmonary disease 61074514 J44.9 [id number] STAN Zhu [address] [address] 11/27/2024 13:14:50 11/27/2024 14:24:24 Screening for malignant neoplasm of colon 879164748 Z12.11 Administra tion of diphtheria, pertussis, and tetanus vaccine 391424048 Z23 Body mass index 40+ - severely obese 078290715 Z68.41 [id number] STAN Zhu [address] [address] 12/18/2024 12:49:51 12/18/2024 13:30:50 Gastroesophageal reflux disease without esophagitis 701090791 K21.9 Chronic ob structive pulmonary disease 26837226 J44.9 Essential hypertension 41000266 I10 Prediabetes 998042731 R7 3.03 [id number] STAN Zhu [address] [address] 02/16/2025 12:51:31 02/16/2025 13:32:46 Prediabetes 910105237 R73.03 HgA1c has dropped to 5.1 from 6.3 Allergic rhinitis 370524 04 J30.9 Chronic ob structive pulmonary disease 93668256 J44.9 Essential hypertension 26574151 I10 Gastroesop hageal reflux disease without esophagitis 167356644 K21.9 Hyperlipidemia 26177119 E78.5 Vitamin D deficiency 347 23845 E55.9 [id number] STAN Zhu [address] [address] 05/18/2025 12:43:49 05/18/2025 13:43:23 Pain of right upper arm 1641586730 01100 M79.621 Body mass index 25-29 - overweight 652660594 E66.3 Chronic ob structive pulmonary disease 96936878 J44.9 Prediabetes 412684603 R7 3.03 HgA1c has dropped to 5.1 from 6.3 Health Concerns Section Related Observation LastModified by Organization Detai ls LastModified Time None Recorded Concern Status LastModified by Organization Details LastModified Time None Recorded Advance Directives Directive N: Payers Insurance Date Sequence Insurance Name Policy Number Policy Park Covered Member ID Park Member ID Guarantor Name 05/15/2025 1 [employer]NA [facility] (MEDICAID HMO) [employer] [id number] [employer] Notes Date Note Type Note Provider Name and Address Organization Details Recorded Time 11/13/2024 text/html Patient has been having intermittent dizzy spells. Has had comprehensive cardiac workup with no blockages. Has cervical disc disease, but these episodes occur with positional changes most frequently. Worse after he has been martha for a while. Has also started to notice a tremor in his hands at times. STAN Zhu [address] [place] [address], [phone], [email or web address] 11/13/2024 15:30:07 11/27/2024 text/html Patient presents for followup. States that he is doing well. STAN Zhu [address] [place] [address], [phone], [email or web address] 11/27/2024 17:46:22 12/18/2024 text/html Patient presents for followup.Recently completed cologuard. It was negative.Had a sebaceous cyst removed from the back of his neck. It was benign.Would like to try to stop some of his meds in the future.He continues to lose weight.He is still having heartburn. STAN Zhu [address] [place] [address], [phone], [email or web address] 12/19/2024 09:21:22 02/16/2025 text/html Patient presents for followup.History of HTN, COPD, GERD, HLD, Vitamin D deficiency, prediabetesSTarted Metformin - HgA1c went from 6.3 to 5.1Has lost 15 more poundsStates that he is feeling good STAN Zhu [address] [place], [phone], [email or web address] 02/17/2025 11:34:57 05/18/2025 text/html Patient presents for followup. Overall doing well. He is trying to lose weight but has stalled some. Has a tender vein in his right arm, swollen. That is a little concerning. STAN Zhu [address] [place] [address], [phone], [facility] [employer] 05/19/2025 13:44:19
--- OUTSIDE RECORDS SUMMARY | 2025-05-22 10:22 | XMS_ITS | Clinical Summary ---
[facility] Address [address] [place] [address] Care Team Providers Care Windshield Repair Technician Name Role Phone Nohelia Alex Primary Care Provider [phone] Allergies No known active allergies Medications albuterol sulfate HFA (Ventolin HFA) 108 (90 Base) MCG/ACT inhaler INHALE 2 PUFFS BY MOUTH EVERY 6 HOURS NEEDED FOR SHORTNESS OF BREATH OR WHEEZING Active aspirin 81 MG EC tablet Take 1 tablet by mouth Daily. Active atorvastatin (LIPITOR) 10 MG tablet TAKE 1 TABLET BY MOUTH ONCE DAILY AT BEDTIME FOR HIGH CHOLESTEROL FOR 90 DAYS 5 Active Azelastine HCl 137 MCG/SPRAY solution As Needed. 4 Active vitamin D (ERGOCALCIFEROL ) 1.25 MG (61370 UT) capsule capsule 4 Active famotidine (PEPCID) 40 MG tablet TAKE 1 TABLET BY MOUTH ONCE DAILY DIRECTED FOR HEARTBURN 4 Active metFORMIN ER (GLUCOPHAGE-XR) 500 MG 24 hr tablet take 1 tablet by mouth once daily as directed for 90 days 5 Active metoprolol succinate XL (TOPROL-XL) 25 MG 24 hr tablet Take 1 tablet by mouth Daily. for high blood pressure 4 Active omeprazole (priLOSEC) 40 MG capsule TAKE 1 CAPSULE BY MOUTH ONCE DAILY DIRECTED FOR GERD 5 Active [place]-3 Fatty Acids (fish oil) 1000 MG capsule capsule 0 Active cholecalciferol 25 MCG (1000 UT) tablet 0 Active Active Problems Problem Noted Date Diagnosed Date Pain in left ankle and joints of left foot 12/10 Immunizations Immunization Administration Dates Next Due Hepatitis A 04/22/2019 Tdap 03/31/2008 Family History Medical History Relation Name Comments Diabetes Mother Ramona Du Relation Name Status Comments Mother Ramona Du Social History Tobacco Use Types Packs/Day Years Used Date Smoking Tobacco: Former Cigarettes 1.5 27 0 11/05/1987 - 11/05/2014 Tobacco Cessation:Counseling Given: Not Answered Alcohol Use Standard Drinks/Week Comments Not Currently 0 (1 standard drink = 0.6 oz pure alcohol) Half gallon whiskey a day, 2 cases beer and some moonshine Sex and Gender Information Value Date Recorded Sex Assigned at Not on file Legal Sex Male 8:02 AM EDT Gender Identity Not on file Sexual Orientation Not on file Last Filed Vital Signs Vital Sign Reading Time Taken Comments Blood Pressure 136/88 12/10/2024 10:45 AM EST Pulse 110 01/16/2020 8:19 AM EDT Temperature 38.4 C (101.2 F) 01/16/2020 8:19 AM EDT Respiratory Rate 16 01/16/2020 8:19 AM EDT Oxygen Saturation 98% 01/16/2020 8:19 AM EDT Inhaled Oxygen Concentration - - Weight 126 kg (277 lb 9.6 oz) 12/10/2024 10:45 A M EST Height 174 cm (5' 8.5 ) 12/10/2024 10:45 AM EST Body Mass Index 41.59 12/10/2024 10:45 AM EST Plan of Treatment Health Maintenance Due Date Last Done Comments Pneumococcal Vaccine 0-49 (1 of 2 - PCV) 1994 ANNUAL PHYSICAL 01/16/2020 HEPATITIS C SCREENING 01/16/2020 COLOGUARD 2020 COLON CANCER SCREENING 5 YEA R SIGMOIDOSCOPY 2020 COLONOSCOPY 2020 [address] CANCER SCREENING [address] CT COLONOGRAPHY 2020 FECAL OCCULT BLOOD TEST 2020 FIT Testing (1 year) 2020 COVID-19 Vaccine (1 - 2023- season) 2024 INFLUENZA VACCINE 08/05/2025 TDAP/TD VACCINES (3 - Td or Tdap) 11/27/2034 025, 03/31/2008 Insurance [facility] Care Teams Windshield Repair Technician Relationship Specialty Start Date End Date Nohelia Alex PA [address] [place] [address] PCP - General Physician Immigration Services Officer 12/03/24
--- OUTSIDE RECORDS SUMMARY | 2025-05-22 10:22 | XMS_ITS | Referral Summary ---
Author Organization [employer] ([place], [place], [place], [place]) Address [address] [place] [address] Care Team Providers Care Debridging Machine Operator Name Role Phone Nohelia Alex PA-C Primary Care Provider [phone] Allergies No known active allergies Medications atorvastatin (LIPITOR) 10 MG tablet Take 1 tablet (10 mg total) by mouth nightly. 02/10/2024 Active ergocalciferol (ERGOCALCIFEROL ) 1,250 mcg (50,000 unit) capsule Take 1 capsule (50,000 Units total) by mouth once a week. 12/29/2023 Active famotidine (PEPCID) 40 MG tablet Take 1 tablet (40 mg total) by mouth daily. 02/10/2024 Active metoprolol succinate (TOPROL-XL) 25 MG 24 hr tablet Take 1 tablet (25 mg total) by mouth daily. 02/03/2024 Active omeprazole (PriLOSEC) 40 MG capsule Take 1 capsule (40 mg total) by mouth daily. 02/27/2024 Active aspirin 81 MG chewable tablet Take 1 tablet (81 mg total) by mouth daily. 09/10/2023 Active meclizine (ANTIVERT) 25 mg tablet Take 1 tablet (25 mg total) by mouth 3 (three) times daily as needed. 01/22/2024 Active omega 8-yyg-bmt-fish oil 1,000 mg (250 mg-750 mg)/5 mL Liqd Take 1 tablet by mouth daily. 09/10/2023 Active Social History Tobacco Use Types Packs/Day Years Used Date Smoking Tobacco: Former Cigarettes Smokeless Tobacco: Never Alcohol Use Standard Drinks/Week Comments Never 0 (1 standard drink = 0.6 oz pur e alcohol) Food Insecurity Answer Date Recorded Food run out past 12 months Not on file 03/05 Food did not last past 12 months Not on file 03/19/2024 Employment Answer Date Recorded Help finding and keeping a job Not on file 0 03/19/2024 Family and Community Support Answer Mykel e Recorded Help with Day to Day Activities Not on file 03/19/2024 Feeling Lonely or Isolated Not on file 03/19 Educational Attainment Answer Date Kye rded Speak language other than Senegalese at home Not on file 03/19/2024 Want help with school or training Not on file 03/19/2024 Substance Use Answer Date Recorded Used prescription meds for non-medical reasons N ot on file 03/19/2024 Used illegal drugs past 12 months Not on file 03/19/2024 Sex and Gender Information Value Date Recorded Sex Assigned at Not on file Legal Sex Male 9:46 AM CDT Gender Identity Not on file Sexual Orientation Not on file Last Filed Vital Signs Vital Sign Reading Time Taken Comments Blood Pressure 138/82 03/26/2024 10:40 AM EDT Pulse 85 03/26/2024 10:40 AM EDT Temperature - - Respiratory Rate - - Oxygen Saturation - - Inhaled Oxygen Concentration - - Weight 130.6 kg (288 lb) 03/26/2024 10:40 AM EDT Height 177.8 cm (5' 10 ) 03/26/2024 10:40 AM EDT Body Mass Index 41.32 03/26/2024 10:40 AM EDT Plan of Treatment Not on file Insurance [facility] Care Teams Debridging Machine Operator Relationship Specialty Start Date End Date Nohelia Alex PA-C [address] [place] [address] PCP - General Physician Export Administrator 03/26/24
--- OUTSIDE RECORDS SUMMARY | 2025-05-22 10:22 | XMS_ITS | Clinical Summary ---
Author Organization [employer] ([place], [place], [place], [place]) Address [address] [place] [address] Care Team Providers Care Well Shooter Name Role Phone IsaiNohelia Daren SIMON Primary Care Provider [phone] Allergies No known active allergies Medications atorvastatin [...] times daily as needed. 01/22/2024 Active omega 5-uto-zdc-fish oil 1,000 mg (250 mg-750 mg)/5 mL Liqd Take 1 tablet by mouth daily. 09/10/2023 Active Family History Medical History Relation Name Comments Stroke Father Arthritis Mother High blood pressure Mother Hyperlipidemia Mother Relation Name Status Comments Father Mother Social History Tobacco Use Types Packs/Day Years [...] Date Kye rded Speak language other than Iraqi at home Not on file 03/19/2024 Want [...] 03/26/2024 10:40 AM EDT Plan of Treatment Health Maintenance Due Date Last Done Comments CT Colonography 1975 Colonoscopy 1975 Colorectal Cancer Screening 1975 FOBT/FIT 1975 Fit-DNA (Cologuard) 1975 Sigmoidoscopy 1975 Depression Screening (12+) 1987 HIV Screening 1990 Hepatitis C Screening 1993 Lipid Panel 2010 DTAP/TDAP/TD VACCINES (2 - T d or Tdap) 03/31/2018 03/31/2008 COVID-19 VACCINE ( - 2023-2 5 season) 2024 Tobacco Cessation Counseling and Screening (12+) 03/26/2025 03/26/2024 Influenza Vaccine (#1) 2025 Pneumococcal Vaccine: 0-49 Years Aged Out No longer eligible based on patient's age to complete this topic Insurance [facility]NA [facility] Care Teams Well Shooter Relationship Specialty Start Date End Date Nohelia Alex PA-C [address] [place] [address] PCP - General Physician Check Writing Machine Operator 03/26/24
--- OUTSIDE RECORDS SUMMARY | 2025-05-22 10:22 | XMS_ITS | Continuity of Care Document ---
Author Organization [place] - [employer], [facility] Address [address] [place] [address] Care Team Providers Care Route Returner Name Role Phone [facility] Orthopedic Surgeon Assessment No assessment recorded. Plan of Treatment Reminders Order Date Submit Date Provider Last Modified By Organization Details Last Modified Time Details Appointments FOLLOW UP 15 2024 01:30P Alfonso Alex PA-C Not available Not available Not available Lab HbA1c (hemoglob in A1c), blood 2024 025 [email or web address] [facility], [address] [facility], [place], [address], 05/19/2025 13:43:33 Referral None recorded. Procedures None recorded. Surgeries None recorded. Imaging US, duplex, venous, upper extremity , unilatera l 2024 025 [facility] ([facility] [address], [place], [address], 05/18/2025 14:31:43 Medication Orders None recorded. Patient TargetsNo targets recorded. Patient Instructions Encounter Date Encounter Id Patient Instructions Last Modified By Organization Details Last Modified Time 05/18/2025 [id number] learning about healthy weight [email or web address] Not available 05/19/2025 13:43:33 chronic obstructive pulmonary disease (COPD): care instructions Not available 05/19/2025 13:43:33 learning about copd and how to prevent lung infections [email or web address] Not available 05/19/2025 13:43:33 Reason for Referral None Reported. Results Created Date Observation Date Name Description Value Unit Range Abnormal Flag Note LastModifiedBy Organization Detail LastModifiedTime 05/18/2005/18/2025 HbA1c (hemo globi n A1c), blood HbA1c 5.2 Not Available [facility] [address] [facility], [place], [address], 05/18/2025 13:38:11 Result Notes None recorded. Problems Name Problem SNOMED Code Status Onset Date Resolution Date Notes Provider Name and Address Organization Details Recorded Time Cyst of sphenoid sinus 0952785784509 9108 Active 2023 STAN Zhu [address] [place] [address], [address]9825-139 8, [employer] 4 16:03:17 Essential hypertensio n 00365051 Active 2023 STAN Zhu [address] [place] [address], 36455-677 8, [employer] 4 16:03:19 Hyperlipide jhonatan 93856413 Active 2023 STAN Zhu [address] [place] [address], 71836-072 8, [employer] 4 16:03:23 Vitamin D deficiency 68592554 Active 2023 STAN Zhu [address] [place] [address], 95127-708 8, [employer] 4 16:03:27 Chronic obstructive pulmonary disease 06556361 Active 2023 STAN Zhu [address] [place] [address], 14019-574 8, [employer] 4 16:03:14 Gastroesoph ageal reflux disease without esophagitis 935186219 Active 2023 STAN Zhu [address] [place] [address], 18330-086 8, [employer] 4 16:03:21 Allergic rhinitis 43338996 Active 2023 STAN Zhu [address] [place] [address], 06176-284 8, [employer] 4 16:03:01 Obesity 613310936 Active 2023 Nohelia STAN Alex [address] [place] [address], 05399-553 8, [employer] 4 16:48:13 Vertigo 600871283 Active 2024 Nohelia STAN Alex [address] [place] [address], 08092-784 8, [employer] 5 14:22:19 Prediabetes 859056054 Active 2024 Nohelia STAN Alex [address] [place] [address], 39920-709 8, [employer] 5 10:43:18 Pain of right upper arm 0295183686924 03 Active 2024 STAN Zhu [address] [place] [address], 45139-194 8, [employer] 5 13:31:22 Problem Notes None recorded. Procedures Surgical History Date Name Laterality Status Provider Name and Address Organization Details Recorded Time Orthopedic Surgery completed [employer] 09/29/2024 10:46:57 Other completed [employer] 09/29/2024 10:47:18 Orthopedic Surgery completed [employer] 09/29/2024 10:47:46 varicose vein stripping completed [employer] 09/29/2024 10:48:31 Imaging Results None recorded. Procedure [...] and Address Organization Details Last Updated DateTime 177.8 cm 32.4 kg/m2 646784. 08 g 98.1 [degF] 97 % 97 % 60 /min 113/71 mm[Hg] Daisy Inter[employer] 12:59:25 Social History Question Answer Notes LastModified by Organizat ion Details LastModified Time Tobacco Smoking Status Former Smoker Susan pal, [employer] 09/29/2024 10:42:32 Do You Have An [...] Information not available 09/29/2024 What Type Of Cyber Engineer Do You Use? None Information not available [...] Or The Highest Degree You Have Received? [id number] Information not available 09/29/2024 Have There Been [...] Do You Have A Medical Power Of Senior Relationship Manager? No Information not available 09/29/2024 What Was The Date Of Your Most Recent Tobacco Screening? 05/18/2025 Information not available 05/18/2025 Do You Have [...] anxious, or unable to sleep at night)? [id number] Information not available 09/29/2024 Do you have [...] Artery Disease N Other N Gout N Blood Diseases N Kidney Stones N Hyperthyroidism N Blood Transfusion N Breast Cancer N Emergency room visit since last appointm ent. N Lung Disease N COPD Y Depression N Dermatologic Disorders N Hypothyroidism N Defects or Inherited Disease N Developmental or Behavioral Disorders N Breast Problem N Difficulty Swallowing N [...] N High Cholesterol Y Liver Disease N Psychiatric/Mental Health Condition N Organ Transplant N Dialysis N Schizophrenia N Fibromyalgia N Headaches N Kidney Disease N Allergies/Hayfever Y Heart Problems N Ear or Hearing Problems N Hospitalizations N Learning Disorder N Artificial Joints N Thyroid Problems N GI Problems N Acne N ADD/ADHD N Eating Disorder N Anemia N Constipation N Mental Illness N Diabetes N Ovarian Cancer N Bedwetting N Hepatitis/Liver Disease N Tuberculosis N Eczema N Abuse/Domestic Violence N Diverticulitis N Asthma N Trauma/Violence N Substance Abuse N Reflux/GERD N Depression/ depression N Hepatitis N Heart Disease N Pulmonary Embolism N Tourette Syndrome N Chronic Ear Infections N Pre-Eclampsia N Hypertension Y Chicken Pox N Autism Spectrum Disorder (ASD) N Osteoporosis N Thrombophilias N Immunizations Vaccine Type Date Status Note Provider Nam elizabeth and Address Organization Details Recorded Time Tdap 11/27/2024 completed STAN Zhu [address] [place], [address], [place] [employer] 11/27/2024 17:44:53 Tdap 03/31/2008 completed [employer] 11/13/2024 13:36:38 Past Encounters Encounter ID Performer Location Encounter Start Date Encounter Closed Date Diagnosis/Indication Diagnosis SNOMED-CT Code Diagnosis ICD10 Code Diagnosis Note [id number] STAN Zhu [facility] [address] [place] [address] 05/18/2025 12:43:49 05/18/2025 13:43:23 Pain of right upper arm 7794521402 01598 M79.621 Body mass index 25-29 - overweight 517670101 E66.3 Chronic ob structive pulmonary disease 25164809 J44.9 Prediabetes 687795290 R7 3.03 HgA1c has dropped to 5.1 from 6.3 Health Concerns Section Related Observation LastModified by Organization Detai ls LastModified Time None Recorded Concern Status LastModified by Organization Details LastModified Time None Recorded Payers Encounter Date Sequence Insurance Name Policy Number Policy Park Covered Member ID Park Member ID Guarantor Name 05/18/2025 1 [facility] (MEDICAID HMO) [employer] [id number] [employer] Notes Date Note Type Note Provider Name and Address Organization Details Recorded Time 05/18/2025 text/html Patient presents for followup. Overall doing well. He is trying to lose weight but has stalled some. Has a tender vein in his right arm, swollen. That is a little concerning. STAN Zhu [address] [place] [address], [address], [employer] 05/19/2025 13:44:19
== END 2025-05-22 23:59 | disposition home or self-care (01) ==
LOC: RT 10:20
PROVIDERS: PCP Physician Assistant; Visit Provider Physician Assistant
DX: M79.621 Pain in right upper arm (principal)
CPT/HCPCS: 93971

== ENCOUNTER 2025-08-06 09:42 | Outpatient (CLI) | payer MEDICARE, SELFPAY ==
--- NOTE | 2025-08-06 09:45 | CT_ITS ---
FINAL REPORT TECHNIQUE: Thin section axial images were obtained through the paranasal sinuses without contrast. Reconstruction images were obtained from the axial data. Exam was performed using dose reduction techniques such as automated exposure control, adjustment of the mA and kV according to patient size, and use of iterative reconstruction technique. CLINICAL HISTORY: 1 year follow-up COMPARISON: 07/17/2024 FINDINGS: There is redemonstration of lobular mucoperiosteal thickening in the left sphenoid sinus. No air-fluid levels are identified. The maxillary infundibulum are patent bilaterally. There is no significant nasal septal deviation. There is no acute osseous abnormality. Remaining soft tissues are unremarkable. IMPRESSION: No significant change in the lobular mucoperiosteal thickening of the left sphenoid sinus. Reviewed, Interpreted and Dictated by Matthew Craig MD Transcribed by Beti Tapia Authenticated and [facility]
--- OUTSIDE RECORDS SUMMARY | 2025-08-06 09:46 | XMS_ITS | Clinical Summary ---
[facility] Organization [facility] Address [address] [place] [address] Care Team Providers Care Compliance Examiner Name Role Phone Nohelia Alex Primary Care Provider [phone] Allergies No known active allergies Medications albuterol [...] Active vitamin D (ERGOCALCIFEROL ) 1.25 MG (24754 UT) capsule capsule 4 Active famotidine (PEPCID) [...] ONCE DAILY DIRECTED FOR GERD 5 Active Wheeling-3 Fatty Acids (fish oil) 1000 MG capsule [...] TEST 2020 FIT Testing (1 year) 2020 INFLUENZA VACCINE 06/05/2025 TDAP/TD VACCINES (3 - Td or Tdap) 11/27/2034 025, 03/31/2008 Insurance [facility] Care Teams Compliance Examiner Relationship Specialty Start Date End Date Nohelia Alex PA [address] [place] [address] PCP - General Physician Fabric Sourcer 12/03/24
== END 2025-08-06 23:59 | disposition home or self-care (01) ==
LOC: RAD 09:43
PROVIDERS: PCP Physician Assistant; Visit Provider Otolaryngology
DX: J34.1 Cyst and mucocele of nose and nasal sinus (principal)
CPT/HCPCS: 70486

== ENCOUNTER 2025-09-22 10:02 | Outpatient (CLI) | payer MEDICARE, SELFPAY ==
[2025-09-21 14:18] VITALS: BMI 30.4
--- NOTE | 2025-09-22 | ECG_ITS ---
APPROVED REPORT Exam: Resting ECG HR:73 bpm ECG Measurements Heart Rate 73 AXES ND 160 P 71 QRSd 117 QRS 5 QT 374 T 60 QTc 400 Conclusion SINUS RHYTHM INCOMPLETE RIGHT BUNDLE BRANCH BLOCK [90+ ms QRS DURATION, TERMINAL R IN V1/V2, 40+ ms S IN I/aVL/V4/V5/V6] NONSPECIFIC T-WAVE ABNORMALITY BORDERLINE ECG UNCONFIRMED REPORT Electronically signed by : Boni De La O MD 09/22/2025 15:05:11
--- NOTE | 2025-09-22 10:09 | XR_ITS ---
FINAL REPORT CLINICAL HISTORY: hypertension, former smoker COMPARISON: 03/06/2023 FINDINGS: 2 views of the chest were obtained . The heart is normal in size. The mediastinum is within normal limits. The lungs are clear. There is no pneumothorax. Osseous structures are unremarkable. IMPRESSION: No acute cardiopulmonary process. Reviewed, Interpreted and Dictated by Matthew Craig MD Transcribed by Regina Garcia Authenticated and [facility]
[2025-09-22 10:25] LABS: Hematocrit 42.5 % (42.0-52.0); Hemoglobin 13.4 g/dL (14.1-18.0); Mean Corpuscular HGB Conc 31.5 g/dL (31.8-35.4); Mean Corpuscular Hemoglobin 25.9 pg (27.0-31.2); Mean Corpuscular Volume 82.2 fl (80-94); Platelet Count 202 K/mm3 (142-424); Red Blood Count 5.17 M/mm3 (4.60-6.20); White Blood Count 5.7 K/mm3 (4.8-10.8)
[2025-09-22 10:41] LABS: Anion Gap 12.7 mEq/L (5-15); Blood Urea Nitrogen 20 mg/dl (9-20); Calcium 9.4 mg/dl (8.4-10.2); Carbon Dioxide 30 mmol/L (22.0-30.0); Chloride 101 mmol/L (98-107); Creatinine Clearance Estimated 135 mL/min (50-200); Creatinine,Serum 0.90 mg/dl (0.66-1.25); Estimated Glomerular Filt Rate 90 ml/min (>60); GFR (African American) 109 ML/MIN (>60); Glucose 92 mg/dl (74-100); Potassium 3.7 mmoL/L (3.5-5.1); Sodium 140 mmol/L (136-145)
[2025-09-22 11:20] LABS: Hypochromasia 1+; Total Cells Counted 100
== END 2025-09-22 23:59 | disposition home or self-care (01) ==
LOC: PREOP 10:03
PROVIDERS: PCP Physician Assistant; Visit Provider Otolaryngology
DX: Z01.810 Encounter for preprocedural cardiovascular examination (principal); Z01.811 Encounter for preprocedural respiratory examination; Z01.812 Encounter for preprocedural laboratory examination; I45.19 Other right bundle-branch block; I10 Essential (primary) hypertension; R94.31 Abnormal electrocardiogram [ECG] [EKG]; Z87.891 Personal history of nicotine dependence
CPT/HCPCS: 71046; 80048; 85007; 85014; 85018; 85048; 85049; 93005

== ENCOUNTER 2025-09-28 09:40 | Day surgery (SDC) | payer MEDICARE, SELFPAY ==
[2025-09-22 14:06] VITALS: BMI 30.4
[2025-09-28] VITALS (12 sets, daily range): BP systolic 120–150; BP diastolic 62–78; PULSE 54–70; RESP 16–18; TEMP 36.3–43; O2SAT 92–100
[2025-09-28] MEDS: LACTATED RINGERS 1000ML 1,000 ML 25 ML IV (10:13)
[2025-09-28] MEDS: OXYMETAZOLINE NASAL SPRAY 0.05% 15ML 2 ML NS (10:16)
--- NOTE | 2025-09-28 10:28 | P.PNANES_ITS ---
[facility] Disclaimer: The information contained in this section may have been updated after the patient was seen, as this information can be updated by other users. Medical History Nasal septal spur Cyst of sphenoid sinus Allergic rhinitis History of cocaine abuse Abnormal electrocardiogram [ECG] [EKG] FELIX (obstructive sleep apnea) Family history of asthma History of smoking 30 or more pack years Dyspnea on exertion Restrictive lung disease Sleep apnea History of COVID-19 History of gastroesophageal reflux (GERD) Hyperlipidemia Hypertension Sinus bradycardia FELIX (obstructive sleep apnea) Osteoarthritis Encounter for pre-operative cardiovascular clearance Former smoker Abnormal ECG Surgical History Status post left foot surgery Status post surgery S/P ACL repair History of left knee surgery History of repair of right hip joint History of wisdom tooth extraction Status post phlebectomy Family History Mother Family history of myocardial infarction Family history of diabetes mellitus type II Father Stroke Social History Smoking Status: Former smoker smoking status stop date: 2015 alcohol intake: former substance use type: former substance user current occupational status: disabled Travel in the last 8 weeks?: None Have you lived/traveled outside US in past 30 days?: No Contact w/someone who lives/traveled outside US past 30 days?: No Exposure to someone with infectious disease in past 14 days?: No Do you have a fever (greater than 100.4 F or 38 C)?: No Have you tested positive for COVID-19?: No Exposed to someone with COVID-19 in past 14 days?: No Do you have a sore throat?: No Do you have a cough?: No Do you have any weakness?: No Are you experiencing any nausea/vomitting?: No Do you have any diarrhea?: No Are you experiencing any unusual bleeding?: No Do you have any muscle aches/pain?: No Do you have any abdominal pain?: No Are you experiencing loss of taste or smell?: No [facility] Anesthesia Checklist Patient Identification Patient Identification: Arm Band and Verbal (Name & ) Structural Data Admitted From: Home Planned Operative Procedure/s: nasal septoplasty, image guided L sided Consent for Planned Operative Procedure(s) Verified: Yes Verified Documents: Surgical Consent and History and Physical NPO Status Verified Time NPO: 00:00 Additional verifications Anesthesia Reactions: No Hx Blood Transfusions: No Blood Transfusion Reaction: No Airway Assessment Dentition: Poor Dentition Neurological Assessment Level of Consciousness: Awake, Alert and Appropriate Hx Seizures: No Numbness or tingling in extremities: No Anesthesia Plan Anesthesia Risk discussed: Yes Anesthesia Plan: Verified ASA Class: II Anesthesia Type: General
[2025-09-28] MEDS: LACTATED RINGERS 1000ML 1,000 ML 100 ML IV (12:13)
[2025-09-28] MEDS: OXYMETAZOLINE NASAL SPRAY 0.05% 15ML 15 ML NS (12:15)
[2025-09-28] MEDS: LIDOCAINE 1% W/EPI 1:100,000 20ML VIAL 20 ML (12:16)
[2025-09-28] MEDS: LIDOCAINE 1% 20ML MDV 20 ML (12:16)
[2025-09-28] MEDS: MUPIROCIN 2% OINTMENT 22GM TUBE 22 GM TP (12:16)
--- NOTE | 2025-09-28 12:56 | P.OP_ITS ---
Date of procedure: 09/28/25 Pre-op Diagnosis:: 1. Nasal airway obstruction secondary to nasal septal deviation 2. Chronic left sphenoid sinusitis 3. Right middle turbinate zayra bullosa 4. Bilateral inferior turbinate hypertrophy Post-op Diagnosis:: Same Procedure performed:: 1. Image-guided endoscopic left sphenoidotomy with tissue removal 2. Endoscopic right zayra bullosa resection 3. Septoplasty 4. Bilateral submucosal resection of inferior turbinates Surgeon:: Eugenio Merida III, MD TRAVEL ASSISTANT:: Kong Kamara Anesthesia: GETA Estimated blood loss (mL): 35 Operative findings:: See below Operative note:: The patient was brought to the operating room placed under general inhalational anesthetic and then IV sedation with endotracheal anesthesia. He was then placed in the lounge chair position and topical Afrin and lidocaine was applied into the nare intranasally with cottonoid placement. The [employer] image guided system was then calibrated and gave us good feedback throughout the case. After the area is prepared and draped injected 1% lidocaine with epinephrine to the lateral nasal virk posteriorly as well as the septal mucosa bilaterally. A right hemitransfixion incision was made, I elevated in the submucoperichondrial plane on the left side of the cartilage back to the bone where the severe bony defect was noted impacted on the left. This was isolated and then removed. I then made a call neurotomy anterior to the osteocartilaginous junction and took out the superior cartilage and bone that was displaced to the left. After this was done the septum did return back to the midline. I was able to replace to straighten pieces of ethmoid bone back in the intra septal space. The incision was closed using a 5-0 chromic suture. A quilting stitch of 4-0 plain gut was then placed through and through the septal mucosa. 2 Wheeler stents were cut down and sutured via transseptal 3-0 nylon suture. This point the endoscope along with the image guided system was brought in. Begin work on the left sphenoid area. The best approach appeared to be transnasal adjacent to the middle turbinate which was infractured slightly until is able to enter the sphenoid rostrum anteriorly. I was able to identify the cystic structure noted in the left lateral floor and portion of the sinus. A sphenoid punch was then used to make the opening slightly larger. This also helped us remove the medial wall of the cyst and remove its thick mucoid contents. Once this was completed I injected 1% lidocaine plain into both inferior turbinates. Using the 2 mm turbinate shaver blade made incision along the head of the inferior turban on the left side I did a submucosal resection posterior to this. I then made a separate incision along the inferior portion of the turbinate and did a submucosal resection of the posterior most aspect. I then placed a xerogel pack on the left followed by mupirocin ointment. On the right side a made incision along the midportion of the zayra bullosa of the middle turbinate. I then removed the lateral turbinate wall using sharp dissection. Xerogel pack was placed here. I then did a similar procedure on the right inferior turbinate that we did on the left with a submucosal resection in 2 areas. Mupirocin ointment was then placed bilaterally. The patient stomach contents were aspirated clear. He was then awakened in the operating room taken recovery in good condition. Condition: stable Disposition: PACU Complications:: None
--- NOTE | 2025-09-28 12:58 | P.PNANES_ITS ---
[facility] Anesthesia Record Part I Anesthesia Record I Intake, IV Amount: 900 Hydration: Adequate Estimated blood loss (mL): 10 Urine output (mL): 0 Blood Products used (#): none Blood Pressure: 135/73 SaO2: 95 Pulse Rate: 70 Airway Patency: Patent Respiratory Rate: 16 Temperature: 97.8 F Patient is:: Drowsy and Stable Stable to PACU at:: 12:55
[2025-09-28] MEDS: ONDANSETRON 4MG/2ML VIAL 4 MG IV (13:02)
[2025-09-28] MEDS: KETOROLAC 30MG/ML VIAL 30 MG IV (13:02)
--- NOTE | 2025-09-28 14:09 | P.PNANES_ITS ---
[facility] Anesthesia Record Part II Anesthesia Record Part II Discharge Time: 13:25 Destination: Surgical Day Care (OP Surgery) PACU nurse assessment reviewed?: Yes Patient Condition:: Good Anesthesia Complications:: None Swallowing reflex intact?: Yes Airway Patency: Patent Cyanosis?: No Blood Pressure: 130/72 SaO2: 98 Respiratory Rate: 16 Pulse Rate: 65 Temperature: 97.4 F Mental Status: Alert & Oriented Pain level:: 0 Nausea and/or vomitting:: None Intake, IV Amount: 0 Hydration: Adequate
== END 2025-09-28 14:30 | disposition home or self-care (01) ==
PROVIDERS: PCP Physician Assistant; Visit Provider Otolaryngology
PROC: (CPT 30520; principal; 2025-09-28 11:45)
DX: J32.9 Chronic sinusitis, unspecified (principal); J34.2 Deviated nasal septum; J34.1 Cyst and mucocele of nose and nasal sinus; J30.89 Other allergic rhinitis; K21.9 Gastro-esophageal reflux disease without esophagitis; E78.5 Hyperlipidemia, unspecified; I10 Essential (primary) hypertension; G47.33 Obstructive sleep apnea (adult) (pediatric); Z87.891 Personal history of nicotine dependence; Z79.899 Other long term (current) drug therapy; Z79.82 Long term (current) use of aspirin; I45.10 Unspecified right bundle-branch block
CPT/HCPCS: 30140; 30520; 31240; 31288; 88305; 88311; J0690; J1100; J1885; J2003; J2004; J2250; J2405; J2704; J3010; J7120